=== PATIENT | male | born 1975 | race Hispanic/Latino ===

== ENCOUNTER 2023-09-28 14:21 | Inpatient (IN) | payer OTHER, SELFPAY ==
[2023-09-28 09:39] VITALS: BP 154/99
[2023-09-28 09:59] LABS: % Basophils 0.5 % (0-2); % Eosinophils 2.2 % (0-6); % Immature Granulocytes 0.7 % (0-0.5); % Lymphocytes 20.1 % (20.5-51.1); % Monocytes 8.9 % (1.7-9.3); % Neutrophils 67.6 % (42.2-75.2); Absolute Basophils 0.1 10^3/uL (0-0.2); Absolute Eosinophils 0.3 10^3/uL (0-0.7); Absolute Immature Granulocytes 0.1 10^3/uL (0-0.05); Absolute Lymphocytes 2.5 10^3/uL (1.2-3.4); Absolute Monocytes 1.1 10^3/uL (0.1-0.6); Absolute Neutrophils 8.2 10^3/uL (1.4-6.5); Hematocrit 40.1 % (39.0-52.0); Hemoglobin 13.9 g/dL (13.0-18.0); Mean Corp Hgb Conc. 34.7 g/dL (33.0-37.0); Mean Corpuscular Hgb 29.3 pg (27.0-31.0); Mean Corpuscular Volume 84.6 fL (80.0-94.0); Mean Platelet Volume 10.1 fL (7.4-10.4); Nucleated Red Blood Cells % 0 % (-); Platelet Count 328 10^3/uL (130-400); Red Blood Cell Count 4.74 10^6/uL (4.70-6.10); Red Cell Dist. Width 11.7 % (11.5-14.5); White Blood Cell Count 12.2 10^3/uL (4.8-10.8)
[2023-09-28 10:18] LABS: ALT (SGPT) 25 U/L (0-50); AST (SGOT) 21 U/L (17-59); Alkaline Phosphatase 140 U/L (38-126); Blood Urea Nitrogen 13 mg/dl (9-20); Calcium 9.4 mg/dl (8.4-10.2); Carbon Dioxide 24 mmol/L (22-30); Chloride 99 mmol/L (98-107); Glucose 480 mg/dl (70-99); Potassium 4.4 mmol/L (3.5-5.1); Sodium 133 mmol/L (135-145); Total Bilirubin 1.3 mg/dl (0.2-1.3); Total Protein 6.8 g/dl (6.3-8.2); eGFR > 60.00
--- NOTE | 2023-09-28 10:56 | ED.GENMED ---
History of Present Illness
General
Chief Complaint: Skin Problem
Source: patient
Exam Limitations: none
Time Seen by Provider: 09/28/23 10:53
Nursing documentation reviewed up to this point in time: agreed with
Travel History
Have you had any contact with someone who has COVID-19?: No
Do you have any symptoms of coronavirus? Fever > 100 degrees, chills, cough, shortness of breath, sore throat, loss of taste or smell, muscle aches, or headache?: No
History of Present Illness
History of Present Illness:
48 y/o M with h/o NIDDM
here with pain/swelling/purulence around right great toe for the past 2-3 days, worsening today
pt says he had a bump to the right medial great toe region last year that was small
it seemed to get acutely larger with more pus looking under the tissue over the past 2 days and now redness, pain, swelling into the top of the foot
has not checked BG at home
takes metformin bid
denies h/o neuropathy
no fever, chills
pain with movmeent and palpation
no obvious drainage
Past History
Past History
ED Past Medical History: NIDDM
Social History
Tobacco: Non-smoker
Alcohol: Occasional
Drug: None
Personal:
Living: with family
Employment: Employed
Review of Systems
Review of Systems
Allergies reviewed?: Yes
All Other Systems: Not applicable
Phy Exam
Physical Exam
Physical Exam:
GENERAL: Alert , in no apparent distress
EYE: pupils equal and reactive
NECK: Supple
ENT: o/p clr, mmm.
CARDIAC: Regular rate and rhythm .
LUNGS: Clear breath sounds bilaterally, no acute respiratory distress, no wheezes/rales/rhonchi
ABDOMEN: Soft, without focal tenderness, no r/g, no cvat, normal bowel sounds
NEUROLOGICAL: Alert and oriented, no focal neuro deficits
SKIN: Warm and dry, skin intact.
MUSCULOSKELETAL: Patient has swelling to his left great toe with purulence under the soft tissue that seems to have a fluctuant abscess, some blood under the tissue in this region as well, plantar aspect
swelling extends up his foot/ankle region and there is mild erythema to the foot dorsum and moderate on the dorsal aspect of the great toe; no obvious paronychia
pt has mild tenderness
full rom of the toes
normal senesation
PSYCH: Normal and appropriate interaction.
Course
Orders/Labs/Results
Orders:
Orders
09/28/23 09:50
C-Reactive Protein Urgent
Comment: ADD ON
CMP [Comprehensive Metabolic Panel] Urgent
Complete Blood Count/With Diff Urgent
Glycohemoglobin (HgbA1c) Urgent
09/28/23 Lunch
2200 calorie (18 carb) Diabetic
09/28/23 10:54
0.9% Sodium Chloride 1000 ml [Nss] 1,000 ml IV BOLUS
09/28/23 11:01
BHB [B-Hydroxybutyrate] Urgent
Foot, Left 3 View [CR Foot - Left Min 3 Views] Urgent
Comment:
Reason For Exam: left great toe infection, diabetic
09/28/23 11:02
Add On- LAB Urgent
Tests Added?: hemoglobin a1c
09/28/23 11:05
Lactic Acid Urgent
Urinalysis Reflex To Culture Urgent
Date Specimen was Collected: 09/28/23
Time Specimen was Collected: 11:01
Blood Culture Urgent
VÍCTOR Source: Blood/Venous
Specimen Description:
09/28/23 11:43
Piperacillin/Tazo 4.5 Gram [Zosyn] 4.5 gram in 100 ml IV NOW
09/28/23 11:57
Blood Culture Urgent
VÍCTOR Source: Blood/Venous
Specimen Description:
Wound Culture [Wound/Abscess/Other Culture] Urgent
VÍCTOR Source: Abscess
Specimen Description:
Date Specimen was Collected: 09/28/23
Time Specimen was Collected: 11:54
09/28/23 12:04
Vancomycin [Vancocin] 2,000 mg 0.9% Sodium Chloride 500 ml [Nss] 500 ml IV NOW
09/28/23 13:23
0.9% Sodium Chloride 1000 ml [Nss] 1,000 ml IV BOLUS
09/28/23 13:57
Admit/Transfer Patient As Directed
Co-Sign Provider:
Level of Care: Inpatient admission
Assign to:: Telemetry
Physician / Group: Dr. Shady Collins/Hospitalist
Diagnosis: Left big toe infection
Reason for Telemetry: Arrhythmia
Date to Stop Telemetry: 10/01/23
Time to Stop Telemetry: 11:00
Reason for Hospitalization: Left big toe infection
Expected length of stay greater than two midnights?: Yes
ELOS- Estimated Length of Stay in days: 3
I certify the patient meets the requirements for IP care: Yes
09/28/23 14:00
Code Status As Directed
Resuscitation Status: Full Code
09/28/23 14:10
PODIATRY CONSULT Routine
Consulting Provider: Jc Camilo
Was physician already notified: Yes
Reason for consult: Left Great Toe Infection in the setting of Diabetes Mellitus
09/28/23 14:11
INFECTIOUS DISEASE CONSULT Routine
Consulting Provider: Esperanza Garnett
Was physician already notified: Yes
Reason for consult: Left Great Toe Infection in the setting of Diabetes Mellitus
SURGICAL CONSULT Routine
Consulting Provider: Adan Burt
Was physician already notified: Yes
Reason for consult: Left Great Toe Infection -- Nec Fasc/Deep Necrosis in Left Leg?
09/28/23 14:13
Diabetes Management by Nurse Practitioner Routine
Consulting Provider: Gladis Biggs
Was provider already notified?: Yes
Reason for Consult: Insulin Management
Dextrose 50%-Water [Dextrose 50% Syringe] 12.5 grams IV [id number] PRN
Glucagon [GlucaGen] 1 mg IM PRN PRN
Bedside Glucose Monitoring As Directed
Frequency: AC&HS
Additional Instructions:: Change to q6h if pt on TPN, tube feeding or not eating
09/28/23 16:11
Bisacodyl [Dulcolax] 10 mg RECTAL [id number] PRN
Clindamycin 900 mg/50 ml [Cleocin] 900 mg in 50 ml IV Q8H
Docusate W/Senna [Senokot-S] 1 tablet PO BIDPRN PRN
Polyethylene Glycol Powder [Miralax] 17 grams PO DAILYPRN PRN
VANCOMYCIN Pharmacy to Dose [VANCOCIN Pharmacy to Dose] 1 each Pharmacy To Prepare [Call Pharmacy To Prepare] 0 ml IV PER PROTOCOL
09/28/23 16:11
Activity As Directed
Activity Level: As Tolerated
Neurological Checks As Directed
Frequency: q8h
Additional Instructions:: Bilateral Lower Extremities
Vascular Checks As Directed
Location: Bilateral Lower Extremities
Vital Signs As Directed
Frequency: Per unit guidelines
DX Deep Vein Thrombosis Video Routine
09/28/23 16:30
Insulin Aspart Corrective Low [Novolog Flexpen-Low Resistance] See Protocol SC AC
09/28/23 18:00
Enoxaparin Sodium [Lovenox] 40 mg SC QPM
Piperacillin/Tazo 3.375 Gram [Zosyn] 3.375 gram in 50 ml IV Q6H
09/29/23 06:00
Basic Metabolic Panel IN AM
Complete Blood Count/With Diff IN AM
Magnesium IN AM
09/29/23 08:00
Triglycerides Medication 1 tablet PO DAILY
09/30/23 06:00
Basic Metabolic Panel IN AM
Complete Blood Count/With Diff IN AM
10/01/23 06:00
Basic Metabolic Panel IN AM
Complete Blood Count/With Diff IN AM
10/01/23 11:00
DC Protocol for Telemetry ONCE
10/02/23 06:00
Basic Metabolic Panel IN AM
Complete Blood Count/With Diff IN AM
10/03/23 06:00
Basic Metabolic Panel IN AM
Complete Blood Count/With Diff IN AM
10/04/23 06:00
Basic Metabolic Panel IN AM
Complete Blood Count/With Diff IN AM
10/05/23 06:00
Basic Metabolic Panel IN AM
Complete Blood Count/With Diff IN AM
10/06/23 06:00
Basic Metabolic Panel IN AM
Complete Blood Count/With Diff IN AM
Abnormal Lab Results
09/28/23 09/28/23 09/28/23
09:50 11:05 12:45
WBC 12.2 H 10^3/uL
(4.8-10.8)
Abs Immat Gran (auto) 0.1 H 10^3/uL
(0-0.05)
Absolute Neuts (auto) 8.2 H 10^3/uL
(1.4-6.5)
Absolute Monos (auto) 1.1 H 10^3/uL
(0.1-0.6)
Immature Gran % 0.7 H %
(0-0.5)
Lymphocytes % 20.1 L %
(20.5-51.1)
Sodium 133 L mmol/L
(135-145)
Creatinine 0.5 L mg/dL
(0.7-1.3)
Glucose 480 H* mg/dl
(70-99)
Hemoglobin A1c 12.4 H %
(4.0-5.6)
Alkaline Phosphatase 140 H U/L
(38-126)
Urine Glucose 3+ A
(Negative)
POC Glucose 290 H mg/dl
(70-99)
09/28/23 09:50
09/28/23 09:50
Vital Signs
Initial and Last Documented VS:
Initial Vital Signs
Temp Pulse Resp BP Pulse Ox
98 F 98 14 154/99 98
09/28/23 09:39 09/28/23 09:39 09/28/23 09:39 09/28/23 09:39 09/28/23 09:39
Last Documented Vital Signs
Temp Pulse Resp BP Pulse Ox
98.0 F 79 18 130/76 97
09/28/23 14:55 09/28/23 14:55 09/28/23 14:55 09/28/23 14:55 09/28/23 14:55
MDM/Problems Addressed
MDM/Problems Addressed:
48 y/o M NIDDM
has diabetic foot infection - looks more like a purulent abscess to right medial great toe with cellulitis up his foot now;
bg 480, AG 10, getting IVF and i can order SC insulin
xray indep reviewed by me and shows some gas subcutaneously
rads report : doesn't r/o osteo,
pt's bg came down with some IVF
will give 2nd liter
pt will be ad,mitted for IV abx
concern for early osteo
the abscess was poked with a #11 blade after 1 cc of lidocaine without epi into the abscess and cultured and drained with expression
*Critical Care Note
Total Time (30-74mins, 75-104mins- exclusive of procedures): Not Applicable
ED Attending Note
-
Portions of this chart may have been created with voice recognition software.� Occasional wrong word or��sound alike� substitutions may have occurred due to the inherent limitations of voice recognition software.
Discharge Plan
Departure
Patient Disposition: Admit
Date of Disposition: 09/28/23
Time of Disposition: 11:41
Admit to: Med/Surg
Presentation/result/management discussed w/ accepting MD/DO: Hospitalist
Condition: Fair
Covid-19: Not Applicable
Discharge Problem:
Uncontrolled diabetes mellitus, Diabetic foot infection
Interventions
Interventions:
*Risk Screen - Suicide Last Done: 09/28/23 09:40
*General Assessment Last Done: 09/28/23 09:39
*Neglect/Abuse Screening Last Done: 09/28/23 09:39
ED- Fall Risk Assessment Last Done: 09/28/23 14:29
*ED COVID-19 Vaccine History Last Done: 09/28/23 15:16
*Nursing Disposition Last Done: 09/28/23 15:16
ED-Skin Assessment Last Done: 09/28/23 14:14
Discharge Date and Time
Discharge Date/Time: 09/28/23 15:17
[2023-09-28] MEDS: NSS 1000 IV ×2 (11:13→14:15)
[2023-09-28 11:21] LABS: Urine Albumin Negative (Neg - Trace); Urine Bilirubin Negative (Negative); Urine Character Clear (Clear); Urine Color Yellow; Urine Glucose 3+ (Negative); Urine Ketone Negative (Negative); Urine Leukocyte Negative (Negative); Urine Nitrite Negative (Negative); Urine Occult Blood Negative (Negative); Urine Urobilinogen Negative (Neg - 1+)
[2023-09-28 11:33] LABS: Lactic Acid 1.9 mmol/L (0.7-2.0)
[2023-09-28] MEDS: ZOSYN 100 IV (12:30)
[2023-09-28] MEDS: VANCOCIN 540 MG IV (12:54)
[2023-09-28 12:58] LABS: Glucose - Point of Care 290 mg/dl (70-99)
[2023-09-28 13:25] LABS: B-Hydroxybutyrate 0.12 mmol/L (0.02-0.27)
--- NOTE | 2023-09-28 14:14 | HPS.HSE ---
Family Physician
-
Family Physician: * NONE
Chief Complaint
-
Left Big Toe Pain, Redness and Swelling
History of Present Illness
48 y/o male with past medical history of Diabetes Mellitus, presented with left big toe pain, redness and swelling. Patient says it started about 2-3 days ago, and now also has some discomfort going up his left foot, past his left ankle and up his
left leg. He also noticed intermittent drainage from the affected site. He denied any fever or any other symptoms or any systemic signs or symptoms.
Medical History
Past Medical History
Past Medical History: Reports Other (As per HPI above)
Past Surgical History: Reports None
Social History
Tobacco: Non-smoker
Alcohol: None
Drug: None
Family History
Family History: Not pertinent
Allergies / Home Medications
Allergies reflects when Allergies were last updated in [facility].
Home Medications with original date entered in [facility]
Allergy/Medication List:
Allergies
Allergy/AdvReac Type Severity Reaction Status Date / Time
No Known Allergies Allergy Unverified 09/28/23 09:41
Home Medications
Triglycerides Medication 1 tab PO DAILY 09/28/23
metformin 500 mg tablet 500 mg PO BID 09/28/23
Review of Systems
-
A 12 point ROS was completed and negative except as noted: Yes
Physical Exam
Vital Signs
Vital Signs
Temp Pulse Resp BP Pulse Ox
98 F 98 14 154/99 98
09/28/23 09:39 09/28/23 09:39 09/28/23 09:39 09/28/23 09:39 09/28/23 09:39
Physical Exam
General: No Apparent Distress and Conversant
HEENT: NormoCephalic and Moist mucous membranes
Respiratory: Clear
Cardiac: S1/S2 and Regular Rhythm
GI: Soft, Non Tender and Normal Bowel Sounds
Musculoskeletal: No Cyanosis, No Edema and Other (Left great toe with scabs and dark-colored area erythema and warmth, mildly tender on palpation.)
Skin: Warm
Neuro: Awake, Alert and AO x 3
Psych: Calm and Intact Judgment/Insight
Laboratory Results
-
09/28/23 09:50
09/28/23 09:50
Laboratory Results
Lactic Acid 1.9 mmol/L (0.7-2.0) 09/28/23 11:05
Total Bilirubin 1.3 mg/dl (0.2-1.3) 09/28/23 09:50
AST 21 U/L (17-59) 09/28/23 09:50
ALT 25 U/L (0-50) 09/28/23 09:50
Alkaline Phosphatase 140 U/L (38-126) H 09/28/23 09:50
Impression/Plan
-
Assessment/Plan
Left Great Toe Cellulitis, Soft Tissue Infection
-Check CRP
-Check MRI LLE to check for any nec fasc
-Antibiotics; Vancomycin, Zosyn and Clindamycin
-Consulted ID, Podiatry and Surgery, recommendations appreciated
Diabetes mellitus, uncontrolled
Hyperglycemia
-Glucose was 480 on admission
-Improved in the ER after IV fluids were given
-Insulin Sliding Scale and accuchecks AC and HS
-Consulted Diabetes SHAREPOINT APPLICATION ARCHITECT, recommendations appreciated
DVT Prophylaxis: Lovenox
Code Status: Full Code
[2023-09-28 14:27] VITALS: BP 141/77
[2023-09-28 14:35] LABS: Glycohemoglobin (HgbA1c) 12.4 % (4.0-5.6)
--- NOTE | 2023-09-28 14:53 | CON.ID ---
Consultation
-
Date/Time Consultation Requested: September 28, 2023 1415
Date/Time Consultation Performed: September 28, 2023 1430
Requesting Provider: Dr. Shady Collins
Performing Provider: Dr. Esperanza Garnett
Reason for Consultation: toe infection
Chief Complaint / Past History
Chief Complaint
Left great toe swelling and red
History of Present Illness
48-year-old male with history of diabetes mellitus without neuropathy who presented to the ED today due to 3-day history of increasing left hallux edema, erythema, pain and drainage. He reports he always has a dry wound on the bottom and side of
his left great toe for about a year which did not cause any problems. 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 He has had new shoes. No fevers or chills. He reports his blood sugar has been high
lately.
Past History
Additional Past Medical History:
Diabetes mellitus
Dyslipidemia
Allergy History:
No Known Allergies Allergy (Unverified 09/28/23 09:41)
Medications Reviewed: Yes
Current Antibiotics:
Vancomycin
Zosyn
clindamycin
Social History
Tobacco: Non-Smoker
Alcohol: Occasional
Drug: None
Personal:
Living: With Family
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
Family History
Family History: Not Pertinent
Review of Systems
Review of Systems
General: Negative Fever, Chills or Change in Appetite
HEENT: Negative Sinus Problems, Headache or Pharyngitis
Cardiovascular: Negative Chest Pain or Dyspnea
Respiratory: Negative Dyspnea or Cough
Gasteroenterology: Negative Nausea or Vomiting
Genital / Urological: Negative Dysuria
Neurological: Negative Headache or Dizziness
Vital Signs
Temp Pulse Resp BP Pulse Ox
98.4 F 72 18 141/77 94
09/28/23 14:27 09/28/23 14:27 09/28/23 14:27 09/28/23 14:27 09/28/23 14:27
Physical Exam
Physical Exam
Constitutional: No Acute Distress and Comfortable
Eyes: No Conjunctival Hemorrhage and Sclera Anicteric
Cardiovascular: Regular Rate and S1/S2
Pulmonary: Clear
Gastrointestinal: Soft, Non Tender and Non Distended
Genito-Urinary: Negative CVA Tenderness
Extremities: Erythema (streaky erythema on dorsum of left foot) and Pulses (strong pedal pulses (left)); Negative Edema
Wound: Other (left hallux; + edema, dark erythema distal toe, + streaking erythema up foot; plantar side of toe with purplish wound covered with callus extending too medial toe. )
Neurological: AO x 3
Lab / Diagnostic Study Results
09/28/23 09:50
09/28/23 09:50
Abs Immat Gran (auto) 0.1 10^3/uL (0-0.05) H 09/28/23 09:50
Absolute Neuts (auto) 8.2 10^3/uL (1.4-6.5) H 09/28/23 09:50
Absolute Lymphs (auto) 2.5 10^3/uL (1.2-3.4) 09/28/23 09:50
Absolute Monos (auto) 1.1 10^3/uL (0.1-0.6) H 09/28/23 09:50
Absolute Basos (auto) 0.1 10^3/uL (0-0.2) 09/28/23 09:50
Immature Gran % 0.7 % (0-0.5) H 09/28/23 09:50
Neutrophils % 67.6 % (42.2-75.2) 09/28/23 09:50
Lymphocytes % 20.1 % (20.5-51.1) L 09/28/23 09:50
Monocytes % 8.9 % (1.7-9.3) 09/28/23 09:50
Eosinophils % 2.2 % (0-6) 09/28/23 09:50
Basophils % 0.5 % (0-2) 09/28/23 09:50
Lactic Acid 1.9 mmol/L (0.7-2.0) 09/28/23 11:05
Microbiology Results
Micro:
09/28/23 11:57 Blood Culture - Pending
Blood/Venous
09/28/23 11:57 Wound Culture - Pending
Abscess Gram Stain - Pending
09/28/23 11:05 Blood Culture - Pending
Blood/Venous
Assessment / Plan
# Diabetic left great toe infection with wound, cellulitis
# Leukocytosis
- Agree with MRI
-Low suspicion for necrotizing fascitis
- DC clindamycin
- Continue Vancomycin and Zosyn for now.
[2023-09-28 14:55] VITALS: BP 130/76
[2023-09-28 17:11] LABS: Glucose - Point of Care 247 mg/dl (70-99)
[2023-09-28] MEDS: ZOSYN 50 IV (17:52)
[2023-09-28] MEDS: LOVENOX 40 MG SC (17:53)
--- NOTE | 2023-09-28 18:02 | PHA.VAN.IN ---
Assessment
- Assessment
Renal Function: Appears similar to baseline
Concomitant Antimicrobials: ZOSYN
- Previous Dosing Experience
Previous Regimen: NONE
AUC Dosing Plan
- Dosing Variables
Dosing Weight (kg): 88.6
Dosing CrCl (ml/min): 100
Vd coefficient (L/kg): 0.6
- Empiric Dosing
Initial / Loading Dose: 2GM
Maintenance Regimen: 1GM IV Q12H
Estimated AUC (mcg*h/mL): 449
Estimated Peak (mcg*h/mL): 29
Estimated Trough (mcg/ml): 11.1
Estimated Half Life (H): 7.9
Pharmacokinetics Vancomycin I
- -
Patient Age: 48
Patient Sex: Male
Vancomycin Day #: 1
Indication: Diabetic Foot
Requesting Provider: BLAIR
Height / Weight:
Height 5 ft 6 in
Actual Weight 88.6 kg
Pertinent Past Medical History: IDDM
- Vital Signs / Lab Results
Temp Pulse Resp BP Pulse Ox
98.0 F 79 18 130/76 97
09/28/23 14:55 09/28/23 14:55 09/28/23 14:55 09/28/23 14:55 09/28/23 14:55
Lab Results - Hematology
09/28/23
09:50
WBC 12.2 H
Lab Results - Chemistry
09/28/23
09:50
BUN 13
Creatinine 0.5 L
Albumin 4.0
09/28/23
11:05
Lactic Acid 1.9
Lab Results - Urine
09/28/23
11:05
Urine Nitrite (Reflex) Negative
Leukocyte Esterase Rfl Negative
Microbiology Results
09/28/23 11:57 Gram Stain - Preliminary
Abscess
[2023-09-28] MEDS: NOVOLOG FLEXPEN-LOW RESISTANCE 2 UNITS SC (18:06)
[2023-09-28] MEDS: ULTRAM 25 MG PO (19:58)
[2023-09-28 20:36] VITALS: BP 133/74
[2023-09-28 21:19] LABS: Glucose - Point of Care 262 mg/dl (70-99)
[2023-09-28 23:40] VITALS: BP 127/77
[2023-09-29] MEDS: ZOSYN 50 IV ×4 (00:49→17:44)
[2023-09-29 03:49] VITALS: BP 136/84
[2023-09-29] MEDS: VANCOCIN 200 IV (04:57)
[2023-09-29 05:36] LABS: % Basophils 0.5 % (0-2); % Eosinophils 3.6 % (0-6); % Immature Granulocytes 0.6 % (0-0.5); % Lymphocytes 27.9 % (20.5-51.1); % Monocytes 9.7 % (1.7-9.3); % Neutrophils 57.7 % (42.2-75.2); Absolute Basophils 0.1 10^3/uL (0-0.2); Absolute Eosinophils 0.4 10^3/uL (0-0.7); Absolute Immature Granulocytes 0.1 10^3/uL (0-0.05); Absolute Lymphocytes 3.3 10^3/uL (1.2-3.4); Absolute Monocytes 1.2 10^3/uL (0.1-0.6); Absolute Neutrophils 6.8 10^3/uL (1.4-6.5); Hematocrit 37.4 % (39.0-52.0); Hemoglobin 12.6 g/dL (13.0-18.0); Mean Corp Hgb Conc. 33.7 g/dL (33.0-37.0); Mean Corpuscular Volume 86.2 fL (80.0-94.0); Mean Platelet Volume 9.9 fL (7.4-10.4); Nucleated Red Blood Cells % 0 % (-); Platelet Count 281 10^3/uL (130-400); Red Blood Cell Count 4.34 10^6/uL (4.70-6.10); Red Cell Dist. Width 11.6 % (11.5-14.5); White Blood Cell Count 11.9 10^3/uL (4.8-10.8)
[2023-09-29 06:14] LABS: Blood Urea Nitrogen 14 mg/dl (9-20); Calcium 8.3 mg/dl (8.4-10.2); Carbon Dioxide 27 mmol/L (22-30); Chloride 104 mmol/L (98-107); Estimated Creatinine Clearance > 125 ml/min; Glucose 244 mg/dl (70-99); Magnesium 1.7 mg/dl (1.6-2.3); Potassium 4.3 mmol/L (3.5-5.1); Sodium 133 mmol/L (135-145); eGFR > 60.00
[2023-09-29 07:00] VITALS: BP 121/81
[2023-09-29 07:54] LABS: Glucose - Point of Care 236 mg/dl (70-99)
--- NOTE | 2023-09-29 08:09 | W.CS.POD ---
Consult Summary - Podiatry
-
This patient is a 48 year old diabetic male admitted through ER yesterday (09/28/23) with an infected great toe and cellulitis of the LLE. He relates noticing a blister along the bottom and side of the toe for approximately one year, essentially
asymptomatic. Within the last few days he noticed increased pain and swelling in the toe and it seemed the pain was spreading up his leg. He denies burning, tingling or numbness in his feet. Denies fever, chills or sweats today.
Afebrile, VSS
WBC: 11.9, no shift
B (480 on admission)
XRAY left foot: Reported, 'Cannot exclude small cortical fracture or focal cortical bony destructive process involving the tip of the distal phalanx of the left great toe.'
Assessment:
Infected diabetic wound of the great toe with cellulitis LLE
Uncontrolled Diabetes Mellitus with diabetic peripheral neuropathy
Hyperlipidemia
Plan:
-XRAYs of the left foot evaluated. There is no clear evidence of cortical destruction or osteomyelitis of the tuft of the distal phalanx of the great toe.
-This is an infected blister involving most of the plantar medial pad of the left great toe. There is no deep extension or tracking of the wound. No bone exposure. Cellulitis appears to be limited to the toe.
-Bedside excisional debridement of the left great toe ulceration, partial skin thickness, with removal of hyperkeratotic and nonviable skin and soft tissue, to a lightly bleeding base. Wound approximately 3cm x 2.5cm. Purulence encountered and wound
was washed out with saline. Dressing applied.
-Patient to ambulate with weight on the left heel only, to bathroom only.
-MRI pending, however I do not believe surgery on the toe is warranted at this point. Discussed with Dr. Collins.
-ID note appreciated. Continue IV antibiotics.
-Will follow.
[2023-09-29] MEDS: NOVOLOG FLEXPEN-LOW RESISTANCE 2 UNITS SC ×2 (09:00→14:12)
[2023-09-29] MEDS: GLUCOPHAGE 1000 MG PO ×2 (09:01→17:44)
--- NOTE | 2023-09-29 09:48 | PHA.VAN.FU ---
Vancomycin Assessment / Plan
- Assessment
Renal Function: Stable
WBC's are: Stable
In the past 24 hrs, patient has been: Afebrile
Concomitant Antimicrobials: piperacillin/tazobactam
- Dosing Plan
Adjust Regimen to: Vanc 1500mg Q12H starting at 1800
New Regimen Predicts: AUC (481), Peak (33.1), Trough (10.6)
Dosing Comments: utilized est CrCl 125 ml/min given 48 y/o with appr SCR
- Monitoring Plan
No level(s) ordered at this time: consider levels in next few days
- Follow Up
Pharmacy will continue to follow.
Vancomycin Follow UP
- -
Patient Age: 48
Patient Sex: Male
Vancomycin Day #: 2
Indication: Diabetic Foot
Requesting Provider: Dr. Collins / Tamir
Pertinent Antimicrobial Allergies:
NKDA
Height / Weight:
Height 5 ft 6 in
Actual Weight 88.6 kg
Pertinent Past Medical History: BMI ~31.5, DM
- Vital Signs / Lab Results
Temp Pulse Resp BP Pulse Ox
97.5 F 83 16 121/81 96
09/29/23 07:00 09/29/23 07:00 09/29/23 07:00 09/29/23 07:00 09/29/23 07:00
Lab Results - Hematology
09/28/23 09/29/23
09:50 05:24
WBC 12.2 H 11.9 H
Lab Results - Chemistry
09/28/23 09/29/23
09:50 05:24
BUN 13 14
Creatinine 0.5 L 0.6 L
Estimated Creat Clear > 125
Albumin 4.0
09/28/23
11:05
Lactic Acid 1.9
Lab Results - Urine
09/28/23
11:05
Urine Nitrite (Reflex) Negative
Leukocyte Esterase Rfl Negative
Microbiology Results
09/28/23 11:57 Gram Stain - Preliminary
Abscess
--- NOTE | 2023-09-29 10:31 | W.PN.ID1 ---
Date of Service
Date of Service: September 29, 2023
Today's Communication
Continue Vanco/Zosyn
Assessment / Plan
# Diabetic left great toe infection with purulent cellulitis
# Leukocytosis - improving
# DM2
- Awaiting MRI
-Appreciate Podiatry - s/p bedside debridement + pus sent for cx
- Continue Vancomycin and Zosyn pending culture.
Chief Complaint
-: Cellulitis
Subjective / Review of Systems
Foot/ankle feels better today. Had CT of leg this am.
Vital Signs / Physical Exam
Vital Signs
Vital Signs
Temp Pulse Resp BP Pulse Ox
97.5 F 83 16 121/81 96
09/29/23 07:00 09/29/23 07:00 09/29/23 07:00 09/29/23 07:00 09/29/23 07:00
Physical Exam
Constitutional: No Acute Distress and Comfortable
Gastrointestinal: Soft, Non Tender and Non Distended
Extremities: Erythema (streaky erythema decreased on dorsum of left foot); Negative Edema
Neurological: AO x 3
Objective Data
Lab Data
Lab Results
09/29/23 05:24
09/29/23 05:24
Estimated Creat Clear > 125 ml/min 09/29/23 05:24
Lactic Acid 1.9 mmol/L (0.7-2.0) 09/28/23 11:05
Total Bilirubin 1.3 mg/dl (0.2-1.3) 09/28/23 09:50
AST 21 U/L (17-59) 09/28/23 09:50
ALT 25 U/L (0-50) 09/28/23 09:50
Alkaline Phosphatase 140 U/L (38-126) H 09/28/23 09:50
C-Reactive Protein Cancelled 09/28/23 14:17
Most recent labs reviewed.
Micro Results:
09/28/23 11:57 Wound Culture - Pending
Abscess Gram Stain - Preliminary
09/28/23 11:57 Blood Culture - Pending
Blood/Venous
09/28/23 11:05 Blood Culture - Pending
Blood/Venous
[2023-09-29 11:00] VITALS: BP 125/82
--- NOTE | 2023-09-29 11:56 | PN.DE.MGMTRT ---
Insulin Management
- -
09/29/2023 Diabetes Management Consult
Patient admitted 09/27 with R great toe pain and purulent drainage for 2 to 3 days. PMH type 2 diabetes. A1C on admission 12.4%, cr .6, eGFr >60.
Patient is awake, alert and oriented resting in bed. Able to communicate and participate in discussion regarding diabetes. Patient states he was taking metformin 500 mg BID which he got in [place]. 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 With A1C elevated will
need to add another agent, glyburide 5 mg daily. I asked if he could afford $20.00 per month for additional medication, he said he could. He also stated he [facility].
Diet decreased from 2200 to 1800 ( patient is 5'6').
Glucose on admission 480, range yesterday 262 to 290. Will start 1000 mg metformin BID and add 5 mg Glyburide, first dose now then daily. Patient states he has a glucose monitor at home but admits he was not testing regularly. Encouraged to test
BID in pattern provided.
I spoke with patient nurse regarding diabetes plan of care.
Diabetes History
- -
Type of Diabetes: 2
Pre-Admission Diabetes Regimen
09/29/23
05:24
Creatinine 0.6 L
Lab Results
Hemoglobin A1c 12.4 % (4.0-5.6) H 09/28/23 09:50
Insulin Pump Settings
IP Diabetes Regimen
09/28/23 09/28/23 09/28/23
12:45 17:10 21:18
Glucose
POC Glucose 290 H 247 H 262 H
09/29/23 09/29/23
05:24 07:53
Glucose 244 H
POC Glucose 236 H
Patient Education
[2023-09-29 12:06] LABS: Glucose - Point of Care 293 mg/dl (70-99)
[2023-09-29] MEDS: MICRONASE 5 MG PO (12:30)
[2023-09-29 14:00] LABS: Glucose - Point of Care 235 mg/dl (70-99)
[2023-09-29 15:00] VITALS: BP 133/83
--- NOTE | 2023-09-29 15:23 | W.PN.HOSP.TC ---
Today's Communication/Plan
-
Await cultures
Continue antibiotics
Monitor vital signs
Assessment / Plan
Assessment / Plan
Physical Exam
General: No Apparent Distress and Conversant
HEENT: Normocephalic and Moist mucous membranes
Respiratory: Clear
Cardiac: S1/S2 and Regular Rhythm
GI: Soft, Non Tender and Normal Bowel Sounds
Musculoskeletal: No Cyanosis, No Edema and Other (Left great toe with scabs and dark-colored area erythema and warmth, mildly tender on palpation.)
Skin: Warm
Neuro: Awake, Alert and AO x 3
Psych: Calm and Intact Judgment/Insight
Assessment/Plan
Left Great Toe Cellulitis, Soft Tissue Infection
-CRP elevated
-Check MRI LLE
-Continue Vancomycin and Zosyn
-Consulted ID, Podiatry and Surgery, recommendations appreciated
Diabetes mellitus, uncontrolled
Hyperglycemia
-Glucose was 480 on admission
-Improved in the ER after IV fluids were given
-Insulin Sliding Scale and accuchecks AC and HS
-Consulted Diabetes PRODUCTION ANALYST, recommendations appreciated: start 1000 mg metformin BID and add 5 mg Glyburide
DVT Prophylaxis: Lovenox
Code Status: Full Code
Anticipated Discharge: 24 - 48 hours
Subjective/Interval History
-
Date of Service: September 29, 2023
Patient was seen and examined. He reports minimal to no pain, and was about to eat breakfast. He denied fever or any other symptoms or complaints.
Objective Data
-
Labs:
Laboratory Results
09/29/23
05:24
WBC 11.9 H
Hgb 12.6 L
Hct 37.4 L
Plt Count 281
Sodium 133 L
Potassium 4.3
Chloride 104
Carbon Dioxide 27
BUN 14
Creatinine 0.6 L
Glucose 244 H
Calcium 8.3 L
Vital Signs:
Vital Signs
Temp Pulse Resp BP Pulse Ox
98.3 F 80 16 125/82 95
09/29/23 11:00 09/29/23 11:00 09/29/23 11:00 09/29/23 11:00 09/29/23 11:00
I&O
09/28/23 09/29/23 09/30/23
06:59 06:59 06:59
Intake Total 240 / 240
Balance 240 / 240
--- NOTE | 2023-09-29 16:03 | CM ---
Met with patient and his daughter at the bedside
Pharmacy verified: [facility], [facility]
Patient reports he is from his spouse; lives with friends; multi level home; patient lives on the 1st floor; bath has a walk-in shower
PLOF: reported he is independent with ambulation, stairs and ADLs; drives
SNF/Rehab/Home Health utilization history: none
DME: none
Transporation: daughter will provide transport home
Plan: discharge plans pending hospital course; will continue to monitor or discharge needs
[2023-09-29 17:04] LABS: Glucose - Point of Care 179 mg/dl (70-99)
[2023-09-29] MEDS: LOVENOX 40 MG SC (17:44)
[2023-09-29] MEDS: NOVOLOG FLEXPEN-LOW RESISTANCE 1 UNITS SC (17:49)
[2023-09-29] MEDS: VANCOCIN 300 MG IV (18:39)
[2023-09-29] MEDS: VANCOCIN 300 ML IV (18:39)
[2023-09-29 19:20] VITALS: BP 125/75
[2023-09-29 21:31] LABS: Glucose - Point of Care 88 mg/dl (70-99)
[2023-09-29] MEDS: TYLENOL 650 MG PO (21:37)
[2023-09-29 23:20] VITALS: BP 133/79
[2023-09-30] VITALS (7 sets, daily range): BP systolic 128–164; BP diastolic 74–93
[2023-09-30] MEDS: ZOSYN 50 IV ×5 (00:19→23:41)
[2023-09-30] MEDS: VANCOCIN 300 MG IV (05:15)
[2023-09-30] MEDS: VANCOCIN 300 ML IV (05:15)
[2023-09-30 06:40] LABS: % Basophils 0.5 % (0-2); % Eosinophils 1.2 % (0-6); % Immature Granulocytes 0.5 % (0-0.5); % Lymphocytes 12.6 % (20.5-51.1); % Monocytes 9.5 % (1.7-9.3); % Neutrophils 75.7 % (42.2-75.2); Absolute Basophils 0.1 10^3/uL (0-0.2); Absolute Eosinophils 0.2 10^3/uL (0-0.7); Absolute Immature Granulocytes 0.1 10^3/uL (0-0.05); Absolute Lymphocytes 2.2 10^3/uL (1.2-3.4); Absolute Monocytes 1.6 10^3/uL (0.1-0.6); Absolute Neutrophils 12.9 10^3/uL (1.4-6.5); Hematocrit 41.4 % (39.0-52.0); Hemoglobin 14.1 g/dL (13.0-18.0); Mean Corp Hgb Conc. 34.1 g/dL (33.0-37.0); Mean Corpuscular Volume 85.2 fL (80.0-94.0); Mean Platelet Volume 9.8 fL (7.4-10.4); Nucleated Red Blood Cells % 0 % (-); Platelet Count 337 10^3/uL (130-400); Red Blood Cell Count 4.86 10^6/uL (4.70-6.10); Red Cell Dist. Width 11.7 % (11.5-14.5)
[2023-09-30 07:01] LABS: Blood Urea Nitrogen 19 mg/dl (9-20); Calcium 9.4 mg/dl (8.4-10.2); Carbon Dioxide 21 mmol/L (22-30); Chloride 105 mmol/L (98-107); Estimated Creatinine Clearance 73 ml/min; Glucose 149 mg/dl (70-99); Potassium 4.7 mmol/L (3.5-5.1); Sodium 134 mmol/L (135-145); eGFR > 60.00
--- NOTE | 2023-09-30 07:17 | PN.DE.MGMTRT ---
Insulin Management
- -
09/30/2023 Diabetes Management Consult Follow up
Patient admitted 09/27 with R great toe pain and purulent drainage for 2 to 3 days. PMH type 2 diabetes. A1C on admission 12.4%, cr .6, eGFr >60.
Patient stated he was taking metformin 500 mg BID which he got in [place]. 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 I asked if he could afford $20.00 per month for additional medication, he said he could. He also stated [facility].
Yesterday diet decreased from 2200 to 1800 ( patient is 5'6').
Patient is awake, alert and oriented resting in bed. Able to communicate and participate in discussion regarding diabetes.
Glucose yesterday 244 fasting, glyburide @ 12noon, pre dinner 179, hs 88. Fasting this AM 149. Will continue 1000 mg metformin BID and 5 mg Glyburide daily. Patient states he has a glucose monitor at home but admits he was not testing regularly.
Encouraged to test BID in pattern provided in diabetes education booklet which is circled. I also reviewed the two medications he is taking and circled in booklet.
I spoke with patient nurse regarding diabetes plan of care.
Diabetes History
- -
Type of Diabetes: 2
Pre-Admission Diabetes Regimen
09/30/23
06:16
Creatinine 1.3
Lab Results
Hemoglobin A1c 12.4 % (4.0-5.6) H 09/28/23 09:50
Insulin Pump Settings
IP Diabetes Regimen
09/29/23 09/29/23 09/29/23
07:53 12:04 13:59
Glucose
POC Glucose 236 H 293 H 235 H
09/29/23 09/29/23 09/30/23
17:03 21:29 06:16
Glucose 149 H
POC Glucose 179 H 88
Meal type: Dinner
Meal type: Lunch
Meal type: Breakfast
Amount consumed: 100%
Amount consumed: 100%
Amount consumed: 100%
Patient Education
[2023-09-30 07:58] LABS: Glucose - Point of Care 153 mg/dl (70-99)
[2023-09-30] MEDS: GLUCOPHAGE 1000 MG PO ×2 (08:39→17:13)
[2023-09-30] MEDS: MICRONASE 5 MG PO (08:39)
[2023-09-30] MEDS: NOVOLOG FLEXPEN-LOW RESISTANCE 1 UNITS SC (08:40)
[2023-09-30 12:14] LABS: Glucose - Point of Care 212 mg/dl (70-99)
[2023-09-30] MEDS: NOVOLOG FLEXPEN-LOW RESISTANCE 2 UNITS SC (12:25)
--- NOTE | 2023-09-30 14:15 | W.PN.POD ---
Today's Communication
Today's Communication
Left great toe wound improving but defect distally remains.
MARY's ordered.
Assessment / Plan
-
Assessment:
Infected diabetic wound of the great toe with cellulitis LLE
Uncontrolled Diabetes Mellitus with diabetic peripheral neuropathy
Hyperlipidemia
Plan:
MRI inconclusive for osteomyelitis.
Overall the left great toe wound is improving with the exception of the defect distally.
Recommend continuing IV Antibiotics for another day.
Diminished pedal pulses: Will order Non-invasive arterial studies/MARY's of LE's.
Reiterated to the patient-must ambulate with Right foot WB on heel only.
Lawall's consult for wedged surgical shoe.
Subjective
Chief Complaint
Infected diabetic ulceration of the left great toe.
Subjective
Patient resting comfortably in bed. Denies pain in the left foot. No fever, chills or sweats.
Further inquiry reveals he was standing and walking on the toe against advisement.
Objective
Temp Pulse Resp BP Pulse Ox
98.8 F 84 16 164/93 96
09/30/23 11:00 09/30/23 11:00 09/30/23 11:00 09/30/23 11:00 09/30/23 11:00
09/30/23 06:16
09/30/23 06:16
Vital Signs and Lab results were reviewed.
WBC: 17.0 with right shift. (Possible post-debridement affect or other cause)
DP pulses, bilaterally non-palpable, PT pulse left 0/4, right 1/4.
Skin is warm to touch, CFT to digits 1+ seconds, Diminished digital hair, bilaterally.
Decreased erythema and edema of the left great toe. No ascending cellulitis.
The ulceration of the great toe is healing peripherally, however there is a 1.0 cm defect with some necrotic tissue probing deeply but not directly to bone.
No malodor, active purulence from the toe wound.
09/28/23 XRAYS, Left foot: There is no clear evidence of cortical destruction or osteomyelitis of the tuft of the distal phalanx of the great toe.
09/28/33 MRI, left foot: Within the plantar soft tissues adjacent to the distal phalanx of the great toe, there is patchy enhancing intermediate T1-weighted signal suggesting cellulitis/inflammation, adjacent to foci of air seen on CT. No evidence
for a focal collection in this region.
There is moderate patchy increased T2 and STIR signal and patchy enhancement of the marrow of the distal phalanx of the left great toe, without associated decreased T1-weighted signal. Main differential considerations of reactive marrow edema and
osteomyelitis.
--- NOTE | 2023-09-30 15:27 | W.PN.ID1 ---
Date of Service
Date of Service: September 30, 2023
Today's Communication
Continue Zosyn.
Assessment / Plan
# Diabetic left great toe infection with purulent cellulitis
# Leukocytosis - worse today
# DM2 uncontrolled A1c 12.4
- MRI report with BM edema vs osteo
- Podiatry - s/p bedside debridement + pus cx: viridens strep
-Discussed with Dr. Camilo there is an area of wound very close to bone but bone not exposed.
He ordered arterial duplex studies
-Continue Zosyn.
-DC Vancomycin.
Chief Complaint
-: Cellulitis
Subjective / Review of Systems
Feels OK
Vital Signs / Physical Exam
Vital Signs
Vital Signs
Temp Pulse Resp BP Pulse Ox
98.8 F 84 16 164/93 96
09/30/23 11:00 09/30/23 11:00 09/30/23 11:00 09/30/23 11:00 09/30/23 11:00
Physical Exam
Constitutional: No Acute Distress and Comfortable
Cardiovascular: Regular Rate and S1/S2
Pulmonary: Clear
Gastrointestinal: Soft, Non Tender and Non Distended
Wound: Other (toe dressing dry)
Neurological: AO x 3
Objective Data
Lab Data
Lab Results
09/30/23 06:16
09/30/23 06:16
Estimated Creat Clear 73 ml/min 09/30/23 06:16
Lactic Acid 1.9 mmol/L (0.7-2.0) 09/28/23 11:05
Total Bilirubin 1.3 mg/dl (0.2-1.3) 09/28/23 09:50
AST 21 U/L (17-59) 09/28/23 09:50
ALT 25 U/L (0-50) 09/28/23 09:50
Alkaline Phosphatase 140 U/L (38-126) H 09/28/23 09:50
C-Reactive Protein Cancelled 09/28/23 14:17
Most recent labs reviewed.
Micro Results:
09/28/23 11:57 Blood Culture - Preliminary
Blood/Venous No Growth in 48 hours- Final report to follow
09/28/23 11:05 Blood Culture - Preliminary
Blood/Venous No Growth in 48 hours- Final report to follow
09/28/23 11:57 Wound Culture - Final
Abscess Viridans Streptococcus Group
Gram Stain - Final
09/29/23 MRI LLE wo and w contrast: Within the plantar soft tissues adjacent to the distal phalanx of the great toe, there is patchy enhancing intermediate T1-weighted signal suggesting cellulitis/inflammation, adjacent to foci of air seen on CT. No
evidence for a focal collection in this region. There is moderate patchy increased T2 and STIR signal and patchy enhancement of the marrow of the distal phalanx of the left great toe, without associated decreased T1-weighted signal. Main
differential considerations of reactive marrow edema and osteomyelitis. Please see above discussion, as MRI is highly sensitive for the detection of osteomyelitis but is less specific.
Small focus of central nonenhancement with peripheral enhancement within the plantar subcutaneous soft tissues adjacent to the first metatarsophalangeal joint, and this finding suggests a small complex abscess or complex phlegmon.
Care Review
Plan reviewed with: Physician (Dr. Camilo)
[2023-09-30] MEDS: LOVENOX 40 MG SC (17:13)
[2023-09-30] MEDS: NOVOLOG FLEXPEN-LOW RESISTANCE SC (17:15)
[2023-09-30 17:16] LABS: Glucose - Point of Care 99 mg/dl (70-99)
--- NOTE | 2023-09-30 19:21 | W.PN.HOSP.TC ---
Today's Communication/Plan
-
Arterial Duplex
Continue IV antibiotics
Assessment / Plan
Assessment / Plan
Physical Exam
General: No Apparent Distress and Conversant
HEENT: Normocephalic and Moist mucous membranes
Respiratory: Clear
Cardiac: S1/S2 and Regular Rhythm
GI: Soft, Non Tender and Normal Bowel Sounds
Musculoskeletal: No Cyanosis, No Edema and Other (Left great toe with scabs and dark-colored area erythema and warmth, mildly tender on palpation.)
Skin: Warm
Neuro: Awake, Alert and AO x 3
Psych: Calm and Intact Judgment/Insight
Assessment/Plan
Left Great Toe Cellulitis, Soft Tissue Infection
-CRP elevated
-MRI report noted: edema vs. osteo.
-Status post Vancomycin
-Continue Zosyn
-Consulted ID, Podiatry and Surgery, recommendations appreciated
-Podiatry: s/p bedside debridement + pus cx: viridans strep
-Follow-up arterial duplex studies
-Ambulate with Right foot WB on heel only and Lawall's consult for wedged surgical shoe.
Diabetes mellitus, uncontrolled
Hyperglycemia
-Glucose was 480 on admission
-Improved in the ER after IV fluids were given
-Insulin Sliding Scale and accuchecks AC and HS
-Consulted Diabetes CIGAR HEAD PERFORATOR, recommendations appreciated: start 1000 mg metformin BID and add 5 mg Glyburide
DVT Prophylaxis: Lovenox
Code Status: Full Code
Anticipated Discharge: 24 - 48 hours
Subjective/Interval History
-
Date of Service: September 30, 2023
Patient was seen and examined. He reported no new pain or any other symptoms or complaints.
Objective Data
-
Vital Signs:
Vital Signs
Temp Pulse Resp BP Pulse Ox
98.3 F 85 16 140/80 94
09/30/23 15:00 09/30/23 15:00 09/30/23 15:00 09/30/23 16:50 09/30/23 15:00
I&O
09/29/23 09/30/23 10/01/23
06:59 06:59 06:59
Intake Total 240 / 240 1440 / 1440 1080 / 1080
Balance 240 / 240 1440 / 1440 1080 / 1080
[2023-09-30 21:39] LABS: Glucose - Point of Care 146 mg/dl (70-99)
[2023-10-01 03:36] VITALS: BP 126/79
[2023-10-01 05:41] LABS: % Basophils 0.6 % (0-2); % Eosinophils 1.7 % (0-6); % Immature Granulocytes 0.7 % (0-0.5); % Lymphocytes 16.4 % (20.5-51.1); % Monocytes 11.3 % (1.7-9.3); % Neutrophils 69.3 % (42.2-75.2); Absolute Basophils 0.1 10^3/uL (0-0.2); Absolute Eosinophils 0.3 10^3/uL (0-0.7); Absolute Immature Granulocytes 0.1 10^3/uL (0-0.05); Absolute Lymphocytes 2.5 10^3/uL (1.2-3.4); Absolute Monocytes 1.7 10^3/uL (0.1-0.6); Absolute Neutrophils 10.4 10^3/uL (1.4-6.5); Hematocrit 38.1 % (39.0-52.0); Hemoglobin 13.2 g/dL (13.0-18.0); Mean Corp Hgb Conc. 34.6 g/dL (33.0-37.0); Mean Corpuscular Hgb 29.1 pg (27.0-31.0); Mean Corpuscular Volume 84.1 fL (80.0-94.0); Mean Platelet Volume 9.8 fL (7.4-10.4); Nucleated Red Blood Cells % 0 % (-); Platelet Count 307 10^3/uL (130-400); Red Blood Cell Count 4.53 10^6/uL (4.70-6.10); Red Cell Dist. Width 11.9 % (11.5-14.5)
[2023-10-01] MEDS: ZOSYN 50 IV ×2 (05:51→11:38)
[2023-10-01 05:56] LABS: Blood Urea Nitrogen 27 mg/dl (9-20); Calcium 8.9 mg/dl (8.4-10.2); Carbon Dioxide 23 mmol/L (22-30); Chloride 106 mmol/L (98-107); Estimated Creatinine Clearance 41 ml/min; Glucose 102 mg/dl (70-99); Sodium 136 mmol/L (135-145); eGFR 34.38
--- NOTE | 2023-10-01 07:27 | PN.DE.MGMTRT ---
Insulin Management
- -
10/01/2023 Diabetes Management Consult Follow up
Patient admitted 09/27 with R great toe pain and purulent drainage for 2 to 3 days. PMH type 2 diabetes. A1C on admission 12.4%, cr .6, eGFr >60.
Patient stated he was taking metformin 500 mg BID which he got in [place]. 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 I asked if he could afford $20.00 per month for additional medication, he said he could. He also stated [facility]. Diet
decreased from 2200 to 1800 ( patient is 5'6').
Patient is awake, alert, leaving shortly for test. Able to communicate and participate in discussion regarding diabetes.
Glucose stable yesterday range 99 to 153, with one elevation pre lunch, 212. Fasting this AM 102.
CR this AM 2.3, eGFR 38.25, will hold 1000 mg metformin BID and continue 5 mg Glyburide daily.
Patient states he has a glucose monitor at home but admits he was not testing regularly. Encouraged to test BID in pattern provided in diabetes education booklet which is circled. I also reviewed the two medications he is taking and circled in
booklet.
I spoke with patient nurse regarding diabetes plan of care.
Diabetes History
- -
Type of Diabetes: 2
Pre-Admission Diabetes Regimen
10/01/23
05:23
Creatinine 2.3 H
Lab Results
Hemoglobin A1c 12.4 % (4.0-5.6) H 09/28/23 09:50
Insulin Pump Settings
IP Diabetes Regimen
09/30/23 09/30/23 09/30/23
07:57 12:12 17:14
Glucose
POC Glucose 153 H 212 H 99
09/30/23 10/01/23
21:38 05:23
Glucose 102 H
POC Glucose 146 H
Meal type: Dinner
Meal type: Lunch
Meal type: Breakfast
Amount consumed: 100%
Amount consumed: 100%
Amount consumed: 100%
Patient Education
[2023-10-01 07:41] VITALS: BP 120/82
[2023-10-01 08:05] LABS: Glucose - Point of Care 100 mg/dl (70-99)
[2023-10-01] MEDS: NOVOLOG FLEXPEN-LOW RESISTANCE SC (08:05)
[2023-10-01] MEDS: MICRONASE PO (10:36)
[2023-10-01] MEDS: GLUCOTROL 2.5 MG PO (11:38)
[2023-10-01 12:07] VITALS: BP 131/84
[2023-10-01 12:21] LABS: Glucose - Point of Care 200 mg/dl (70-99)
[2023-10-01] MEDS: NOVOLOG FLEXPEN-LOW RESISTANCE 2 UNITS SC (14:14)
--- NOTE | 2023-10-01 14:58 | W.PN.ID1 ---
Date of Service
Date of Service: October 01, 2023
Today's Communication
Narrow Zosyn to ceftriaxone.
Follow wbc and renal function.
Assessment / Plan
# Diabetic left great toe infection with purulent cellulitis
# Leukocytosis - slightly improved
# ALFRED
# DM2 uncontrolled A1c 12.4
- Podiatry - s/p bedside debridement + pus cx: viridans strep
-Arterial duplex: suggestive of infrapopliteal and small vessel disease
- MRI: reactive BM edema vs osteo of distal phalanx
Plantar subcutaneous soft tissues adjacent to the first metatarsophalangeal joint, and this finding suggests a small complex abscess or complex phlegmon ->
Small amount of pus expressed at the site today.
-Podiatry is following.
-Narrow Zosyn to ceftriaxone.
-Follow wbc and renal function.
Chief Complaint
-: Cellulitis
Subjective / Review of Systems
No complaints.
Vital Signs / Physical Exam
Vital Signs
Vital Signs
Temp Pulse Resp BP Pulse Ox
98.7 F 84 16 131/84 97
10/01/23 12:07 10/01/23 12:07 10/01/23 12:07 10/01/23 12:07 10/01/23 12:07
Physical Exam
Constitutional: No Acute Distress
Cardiovascular: Regular Rate and S1/S2
Pulmonary: Clear
Wound: Other (Left hallux erythema decreased, plantar side of toe above PIPJ small wound with small amt of pus expressed)
Neurological: AO x 3
Objective Data
Lab Data
Lab Results
10/01/23 05:23
10/01/23 05:23
Estimated Creat Clear 41 ml/min 10/01/23 05:23
Lactic Acid 1.9 mmol/L (0.7-2.0) 09/28/23 11:05
Total Bilirubin 1.3 mg/dl (0.2-1.3) 09/28/23 09:50
AST 21 U/L (17-59) 09/28/23 09:50
ALT 25 U/L (0-50) 09/28/23 09:50
Alkaline Phosphatase 140 U/L (38-126) H 09/28/23 09:50
C-Reactive Protein Cancelled 09/28/23 14:17
Most recent labs reviewed.
Micro Results:
09/28/23 11:57 Blood Culture - Preliminary
Blood/Venous No Growth in 72 hours- Final report to follow
09/28/23 11:05 Blood Culture - Preliminary
Blood/Venous No Growth in 72 hours- Final report to follow
09/28/23 11:57 Wound Culture - Final
Abscess Viridans Streptococcus Group
Gram Stain - Final
09/29/23 MRI LLE wo and w contrast: Within the plantar soft tissues adjacent to the distal phalanx of the great toe, there is patchy enhancing intermediate T1-weighted signal suggesting cellulitis/inflammation, adjacent to foci of air seen on CT. No
evidence for a focal collection in this region. There is moderate patchy increased T2 and STIR signal and patchy enhancement of the marrow of the distal phalanx of the left great toe, without associated decreased T1-weighted signal. Main
differential considerations of reactive marrow edema and osteomyelitis. Please see above discussion, as MRI is highly sensitive for the detection of osteomyelitis but is less specific.
Small focus of central nonenhancement with peripheral enhancement within the plantar subcutaneous soft tissues adjacent to the first metatarsophalangeal joint, and this finding suggests a small complex abscess or complex phlegmon.
Care Review
Plan reviewed with: Physician (Drs. Camilo and Dennis)
--- NOTE | 2023-10-01 15:34 | W.PN.HOSP.TC ---
Today's Communication/Plan
-
Consulted vascular given arterial study results
Continue antibiotics
Assessment / Plan
Assessment / Plan
Physical Exam
General: No Apparent Distress and Conversant
HEENT: Normocephalic and Moist mucous membranes
Respiratory: Clear
Cardiac: S1/S2 and Regular Rhythm
GI: Soft, Non Tender and Normal Bowel Sounds
Musculoskeletal: No Cyanosis, No Edema and Other (Left great toe with scabs and dark-colored area erythema and warmth, mildly tender on palpation.)
Skin: Warm
Neuro: Awake, Alert and AO x 3
Psych: Calm and Intact Judgment/Insight
Assessment/Plan
Left Great Toe Cellulitis, Soft Tissue Infection
Purulent Drainage from Wound
-CRP elevated
-MRI report noted: edema vs. osteo.
-Status post Vancomycin, status post Zosyn
-Continue Ceftriaxone
-Consulted ID, Podiatry and Surgery, recommendations appreciated
-Podiatry: s/p bedside debridement + pus culture: viridans strep
-Arterial duplex studies: suggested infrapopliteal and small vessel disease
-Consulted vascular, recommendations appreciated
-Ambulate with Right foot WB on heel only and Lawall's consult for wedged surgical shoe.
Diabetes mellitus, uncontrolled
Hyperglycemia
-Glucose was 480 on admission
-Improved in the ER after IV fluids were given
-Insulin Sliding Scale and accuchecks AC and HS
-Consulted Diabetes MANAGER DISH, recommendations appreciated: hold 1000 mg metformin BID (due to renal function) but continue 5 mg Glyburide
DVT Prophylaxis: Lovenox
Code Status: Full Code
Anticipated Discharge: 24 - 48 hours
Subjective/Interval History
-
Date of Service: October 01, 2023
Patient was seen and examined. He denied pain, fever or any other symptoms or complaints.
Objective Data
-
Labs:
Laboratory Results
10/01/23
05:23
WBC 15.0 H
Hgb 13.2
Hct 38.1 L
Plt Count 307
Sodium 136
Potassium 4.0
Chloride 106
Carbon Dioxide 23
BUN 27 H
Creatinine 2.3 H
Glucose 102 H
Calcium 8.9
Vital Signs:
Vital Signs
Temp Pulse Resp BP Pulse Ox
98.7 F 84 16 131/84 97
10/01/23 12:07 10/01/23 12:07 10/01/23 12:07 10/01/23 12:07 10/01/23 12:07
I&O
09/30/23 10/01/23 10/02/23
06:59 06:59 06:59
Intake Total 1440 / 1440 1080 / 1080
Balance 1440 / 1440 1080 / 1080
[2023-10-01 15:41] VITALS: BP 133/82
--- NOTE | 2023-10-01 15:53 | CON.VAS ---
Consultation
Consultation Request
Date/Time Consultation Performed: 10/01/2023 1600
Requesting Provider: Shady Collins MD
Performing Provider: sEperanza Fragoso NP for Azar Valente MD
Reason for Consultation: Left hallux wound
Medical History
-
Chief Complaint: Left hallux wound
History of Present Illness:
This is a 48-year-old male with significant past medical history for diabetes who presented to [facility] ED on 09/28/2023 with reports of acute worsening of left hallux wound. Vascular surgery has been consulted in regards to wound healing
potential from a peripheral arterial standpoint. Patient notes he had a blister for perhaps a year on that left first toe. However, over the past 3 to 4 days it has worsened which brought him to the emergency room. Patient was seen by podiatry
blister unroofed. Patient denies any prior lower extremity revascularization procedures. Denies any prior lower extremity or foot wounds/nonhealing issues. Denies any history of coronary disease. Denies tobacco use. Denies nausea, fever, and
chills. He he has not seen a physician in 'years,' and receives his metformin from [place].
Past Medical History
Past Medical History: NIDDM
Social History
Tobacco: Non-Smoker
Allergies / Home Medications
Allergy/AdvReac Type Severity Reaction Status Date / Time
No Known Allergies Allergy Unverified 09/28/23 09:41
�Medication �Instructions �Recorded �Confirmed �Type
Triglycerides Medication 1 tab PO DAILY Supplement 09/28/23 09/28/23 History
metformin 500 mg tablet 500 mg PO BID Diabetes 09/28/23 09/28/23 History
Review of Systems
-
History Source: Patient
Constitutional: Reports No Symptoms
EENT: Reports No Symptoms
Respiratory: Reports No Symptoms
Cardiac: Reports No Symptoms
Vascular: Denies Leg Pain / Claudication, Numbness or Tingling
Abdomen/GI: Reports No Symptoms
: Reports No Symptoms
Musculoskeletal: Reports No Symptoms
Skin: Reports Other (Left hallux wound past 2 to 3 days)
Neurological: Reports No Symptoms
Endocrine: Reports No Symptoms
Physical Exam
Vital Signs
Temp Pulse Resp BP Pulse Ox
98.7 F 80 16 133/82 97
10/01/23 15:41 10/01/23 15:41 10/01/23 15:41 10/01/23 15:41 10/01/23 15:41
Lab Results
10/01/23 05:23
10/01/23 05:23
Physical Exam
General: No Apparent Distress and Comfortable
HEENT: Normocephalic, Anicteric and Atraumatic
Respiratory: Non Labored Respirations
Cardiac: Negative JVD
GI: Soft, Non Tender and Non Distended
Musculoskeletal: No Edema
Skin: Other (Left first toe plantar aspect especially with what appears to be unroofed blister. Relatively superficial ulceration. In the central portion there is some slight superficial black/scab or eschar tissue. Does not appear to have
significant depth.)
Neuro: AO x 3
Pulses: Bilateral Femoral: +2, Bilateral Popliteal: +2 and Left Dorsalis Pedis: +2
Assessment / Plan
-
Assessment: 48-year-old male with diabetes and left hallux wound
Plan:
Suspect sufficient perfusion for wound healing as he has easily palpable left DP pulse with a toe pressure 75 mmHg, marginal for wound healing and a diabetic. However, for completeness sake could pursue arteriography (if at all has peripheral
disease it is likely infrapopliteal, or more likely small vessel disease that may not be revascularizable). Regardless with his creatinine elevated as is, would not pursue angiography until he is optimized.
Currently would advise to complete any podiatric management/observation of healing of the toe and if demonstrates signs of nonhealing, then can pursue arteriography in that setting. If he is healing we can follow him in the outpatient setting.
However, if it is felt strongly that he has osteomyelitis and would require potential toe amputation, likely would favor arteriography before hand. If plan is to proceed with two amputation please let our team know, and can plan angiography early
next week once renally optimized.
I performed this shared service with the attending. I evaluated the patient [id number] and have entered clinical documentation as shown in the encounter note. I performed the following component(s): history and physical exam. Note that medical
decision making is not final until attested by vascular attending.
--- NOTE | 2023-10-01 16:16 | W.PN.UPDATE ---
Update Note
Progress Note Update
48-year-old male asked to evaluate regarding left first toe wound. Slightly confusing, but it sounds like he has had a blister for perhaps a year on that left first toe. However very recently its gotten worse that brought him to the emergency
room. Patient was seen by podiatry hill unroofed. Asked to evaluate from a peripheral arterial standpoint. Patient denies any prior lower extremity revascularization procedures. Denies any prior lower extremity or foot wounds/nonhealing
issues. Denies any history of coronary disease. Denies tobacco use.
On exam/she is awake and alert. Head is normocephalic and atraumatic. Eyes are anicteric. Neck is soft without jugular venous distention. Breathing is unlabored. Abdomen is soft, nondistended, nontender. Lower extremity with 2+ femoral,
popliteal pulses palpable bilaterally. On the right side I difficulty palpating pedal pulses. On the left side he has an easily palpable 2+ DP pulse. Feet are both pink and warm and well-perfused. Left first toe plantar aspect especially with
what appears to be unroofed blister. Relatively superficial ulceration. In the central portion there is some slight superficial black/scab or eschar tissue. Does not appear to have significant depth.
Creatinine 2.3 today. Appears to have been elevated from baseline.
Noninvasive arterial imaging studies reviewed. ABIs not obtainable secondary to noncompressible vessels. Right-sided TBI within normal limits. Left side TBI 0.52. (Absolute toe pressure 75 mmHg). Multiphasic waveforms from common femoral
through popliteal arteries bilaterally. Left-sided multiphasic posterior tibial waveforms, monophasic dorsalis pedis.
Plan/ I think likely has sufficient perfusion for wound healing. Has easily palpable left DP pulse. Toe pressure 75 mmHg, marginal for wound healing and a diabetic. However, for completeness sake could pursue arteriography (if at all has
peripheral disease it is likely infrapopliteal, or more likely small vessel disease that may not be revascularizable). Regardless with his creatinine elevated as is, would not pursue angiography until he is optimized. I think it is reasonable for
him to complete any podiatric management/observation of healing of the toe and if demonstrates signs of nonhealing, then can pursue arteriography in that setting. If that is the case, I can see him as an outpatient. If, however, it is felt
strongly that he has osteomyelitis and would require potential toe amputation, likely would favor arteriography before hand. Please let me know if that's the case, and can plan angiography early next week once renally optimized.
[2023-10-01 16:36] LABS: Glucose - Point of Care 155 mg/dl (70-99)
--- NOTE | 2023-10-01 18:18 | W.PN.POD ---
Today's Communication
Today's Communication
Patient to OR tomorrow for incision and drainage/debridement of left great toe.
NPO after midnight.
Assessment / Plan
-
Assessment:
Infected diabetic wound of the great toe with cellulitis LLE
Uncontrolled Diabetes Mellitus with diabetic peripheral neuropathy
Hyperlipidemia
Plan:
MRI inconclusive for osteomyelitis.
Despite overall improvement of left great toe wound, a small plantar defect with minor purulence remains distally.
Patient to OR tomorrow for incision and drainage/debridement of left great toe.
Vascular note appreciated. If amputation ultimately becomes necessary, we will pursue optimizing perfusion as recommended.
NPO after midnight.
Restricted WB on left heel to bathroom only.
Subjective
Chief Complaint
Diabetic infection of left great toe.
Subjective
Resting comfortably in bed. Denies fever, chills or sweats. No pain in the toe/foot.
Objective
Temp Pulse Resp BP Pulse Ox
98.7 F 80 16 133/82 97
10/01/23 15:41 10/01/23 15:41 10/01/23 15:41 10/01/23 15:41 10/01/23 15:41
10/01/23 05:23
10/01/23 05:23
Vital Signs and Lab results were reviewed.
WBC: 15.0
DP pulses, left +1/4, right non-palpable. PT pulse left 0/4, right 1/4.
Skin is warm to touch, CFT to digits 1+ seconds, Diminished digital hair, bilaterally.
Mild to moderate erythema and edema focal to the left great toe. No ascending cellulitis.
The ulceration of the plantar medial great toe proximally has healed and the area about the 1.0 cm defect along the plantar IPJ area also improving, less necrosis, and drying out, however, the defect still communicates deeply, and light droplet of
purulence is expressed from this wound.
09/28/23 XRAYS, Left foot: There is no clear evidence of cortical destruction or osteomyelitis of the distal phalanx of the great toe.
09/28/33 MRI, left foot: Within the plantar soft tissues adjacent to the distal phalanx of the great toe, there is patchy enhancing intermediate T1-weighted signal suggesting cellulitis/inflammation, adjacent to foci of air seen on CT. No evidence
for a focal collection in this region.
There is moderate patchy increased T2 and STIR signal and patchy enhancement of the marrow of the distal phalanx of the left great toe, without associated decreased T1-weighted signal. Main differential considerations of reactive marrow edema and
osteomyelitis.
10/01/23 Noninvasive arterial imaging studies: ABIs not obtainable secondary to noncompressible vessels. Right-sided TBI within normal limits. Left side TBI 0.52. (Absolute toe pressure 75 mmHg). Multiphasic waveforms from common femoral through
popliteal arteries bilaterally. Left-sided multiphasic posterior tibial waveforms, monophasic dorsalis pedis. Likely sufficient perfusion for wound healing.
Wound culture: [facility]-Final
[2023-10-01] MEDS: STERILE WATER FOR INJECTION 20 ML IV (18:34)
[2023-10-01] MEDS: ROCEPHIN 2000 MG IV (18:35)
[2023-10-01] MEDS: LOVENOX 40 MG SC (18:35)
[2023-10-01] MEDS: NOVOLOG FLEXPEN-LOW RESISTANCE 1 UNITS SC (18:36)
[2023-10-01 19:45] VITALS: BP 146/85
[2023-10-01 21:39] LABS: Glucose - Point of Care 217 mg/dl (70-99)
[2023-10-01 23:32] VITALS: BP 147/92
[2023-10-02] VITALS (16 sets, daily range): BP systolic 14–169; BP diastolic 82–107
[2023-10-02 05:38] LABS: % Basophils 0.6 % (0-2); % Immature Granulocytes 0.7 % (0-0.5); % Lymphocytes 16.5 % (20.5-51.1); % Monocytes 10.5 % (1.7-9.3); % Neutrophils 69.7 % (42.2-75.2); Absolute Basophils 0.1 10^3/uL (0-0.2); Absolute Eosinophils 0.2 10^3/uL (0-0.7); Absolute Immature Granulocytes 0.1 10^3/uL (0-0.05); Absolute Monocytes 1.3 10^3/uL (0.1-0.6); Absolute Neutrophils 8.5 10^3/uL (1.4-6.5); Hematocrit 39.1 % (39.0-52.0); Hemoglobin 13.1 g/dL (13.0-18.0); Mean Corp Hgb Conc. 33.5 g/dL (33.0-37.0); Mean Corpuscular Hgb 28.9 pg (27.0-31.0); Mean Corpuscular Volume 86.1 fL (80.0-94.0); Mean Platelet Volume 9.8 fL (7.4-10.4); Nucleated Red Blood Cells % 0 % (-); Platelet Count 306 10^3/uL (130-400); Red Blood Cell Count 4.54 10^6/uL (4.70-6.10); Red Cell Dist. Width 11.9 % (11.5-14.5); White Blood Cell Count 12.2 10^3/uL (4.8-10.8)
[2023-10-02 06:29] LABS: Blood Urea Nitrogen 35 mg/dl (9-20); Calcium 9.3 mg/dl (8.4-10.2); Carbon Dioxide 22 mmol/L (22-30); Chloride 105 mmol/L (98-107); Estimated Creatinine Clearance 45 ml/min; Glucose 223 mg/dl (70-99); Potassium 4.3 mmol/L (3.5-5.1); Sodium 137 mmol/L (135-145); eGFR 38.35
[2023-10-02] MEDS: GLUCOTROL 2.5 MG PO (07:57)
[2023-10-02] MEDS: NOVOLOG FLEXPEN-LOW RESISTANCE 2 UNITS SC (08:03)
[2023-10-02 08:04] LABS: Glucose - Point of Care 207 mg/dl (70-99)
--- NOTE | 2023-10-02 08:55 | PN.DE.MGMTRT ---
Insulin Management
- -
10/02/2023: Diabetes Management Consult F/U:
Patient admitted 09/27 with R great toe pain and purulent drainage for 2 to 3 days.
PMH T2DM, A1C on admission 12.4%, cr .6, eGFr >60.
Patient stated he was taking metformin 500 mg BID which he got in [place]. 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 I asked if he could afford $20.00 per month for additional medication, he said he could. He also stated he [facility]. Diet
decreased from 2200 to 1800 ( patient is 5'6').
Patient is awake, A/O x3, NPO for I&D of left great toe, states he is very hungry and is asking for water. Explained to pt that he is NPO for procedure later today and should not consume any liquids or solids. He is able to communicate and
participate in discussion regarding diabetes.
Glyburide was changed to Glipizide 2.5mg BID and MFM was held yesterday due to ALFRED, Cr 2.3-->2.1 today, eGFR 38.35
Glucose remains elevated, FBG 223 (V) this AM, premeal range of 100 to 217 requiring 1-2 units of corrective insulin.
Discussed with nurse, instructed to use corrective insulin while NPO.
Will resumed Glipizide when diet is resumed at increased dose of 5mg BID.
Had a lengthy d/w pt regarding dietary choices at home and need to adhere to a diabetic diet. Emphasized exercise and encouraged him to increase his physical activity and to lose weight. Also discussed medications and cost since he has no insurance.
Instructed pt to [facility] since they will honor low cost of MFM and Glipizide, which pt states he can afford.
Diabetes History
- -
Type of Diabetes: 2
Pre-Admission Diabetes Regimen
10/02/23
05:24
Creatinine 2.1 H
Lab Results
Hemoglobin A1c 12.4 % (4.0-5.6) H 09/28/23 09:50
Insulin Pump Settings
IP Diabetes Regimen
10/01/23 10/01/23 10/01/23
12:20 16:35 21:38
Glucose
POC Glucose 200 H 155 H 217 H
10/02/23 10/02/23
05:24 08:02
Glucose 223 H
POC Glucose 207 H
Patient Education
--- NOTE | 2023-10-02 09:59 | W.PN.ID1 ---
Date of Service
Date of Service: October 02, 2023
Today's Communication
Continue ceftriaxone. Length of abx therapy will depend on OR findings whether or not bone exposed.
Assessment / Plan
# Diabetic left great toe infection with purulent cellulitis
# Leukocytosis - improving
# ALFRED - improving
# DM2 uncontrolled A1c 12.4
- Podiatry - s/p bedside debridement + pus cx: viridans strep
-Arterial duplex: suggestive of infrapopliteal and small vessel disease
Per Vascular, hold off arteriogram due to ALFRED
- MRI: reactive BM edema vs osteo of distal phalanx
Plantar subcutaneous soft tissues adjacent to the first metatarsophalangeal joint, and this finding suggests a small complex abscess or complex phlegmon ->
Small amount of pus expressed at the site
-Podiatry is following. To OR today.
-Continue ceftriaxone. Length of abx therapy will depend on OR findings whether or not bone exposed.
-Follow wbc and renal function.
Chief Complaint
-: Cellulitis
Subjective / Review of Systems
Going to OR today.
Vital Signs / Physical Exam
Vital Signs
Vital Signs
Temp Pulse Resp BP Pulse Ox
98.5 F 78 16 143/88 96
10/02/23 07:53 10/02/23 07:53 10/02/23 07:53 10/02/23 07:53 10/02/23 07:53
Physical Exam
Constitutional: No Acute Distress
Cardiovascular: Regular Rate and S1/S2
Pulmonary: Clear
Gastrointestinal: Soft, Non Tender and Non Distended
Objective Data
Lab Data
Lab Results
10/02/23 05:24
10/02/23 05:24
Estimated Creat Clear 45 ml/min 10/02/23 05:24
Lactic Acid 1.9 mmol/L (0.7-2.0) 09/28/23 11:05
Total Bilirubin 1.3 mg/dl (0.2-1.3) 09/28/23 09:50
AST 21 U/L (17-59) 09/28/23 09:50
ALT 25 U/L (0-50) 09/28/23 09:50
Alkaline Phosphatase 140 U/L (38-126) H 09/28/23 09:50
C-Reactive Protein Cancelled 09/28/23 14:17
Most recent labs reviewed.
Micro Results:
09/28/23 11:57 Blood Culture - Preliminary
Blood/Venous No Growth in 72 hours- Final report to follow
09/28/23 11:05 Blood Culture - Preliminary
Blood/Venous No Growth in 72 hours- Final report to follow
09/28/23 11:57 Wound Culture - Final
Abscess Viridans Streptococcus Group
Gram Stain - Final
09/29/23 MRI LLE wo and w contrast: Within the plantar soft tissues adjacent to the distal phalanx of the great toe, there is patchy enhancing intermediate T1-weighted signal suggesting cellulitis/inflammation, adjacent to foci of air seen on CT. No
evidence for a focal collection in this region. There is moderate patchy increased T2 and STIR signal and patchy enhancement of the marrow of the distal phalanx of the left great toe, without associated decreased T1-weighted signal. Main
differential considerations of reactive marrow edema and osteomyelitis. Please see above discussion, as MRI is highly sensitive for the detection of osteomyelitis but is less specific.
Small focus of central nonenhancement with peripheral enhancement within the plantar subcutaneous soft tissues adjacent to the first metatarsophalangeal joint, and this finding suggests a small complex abscess or complex phlegmon.
[2023-10-02 12:02] LABS: Glucose - Point of Care 140 mg/dl (70-99)
[2023-10-02] MEDS: NOVOLOG FLEXPEN-LOW RESISTANCE SC ×2 (12:24→17:47)
--- NOTE | 2023-10-02 15:39 | CM ---
Case management following for d/c planning
Pt for OR today for I&D of R great toe
Continues on IV antibiotics
Insurance mending
internal security manager will follow for needs after I&D
Plan - anticipate home - needs TBD
[2023-10-02 16:01] LABS: Glucose - Point of Care 142 mg/dl (70-99)
--- NOTE | 2023-10-02 16:56 | W.PN.UPDATE ---
Update Note
Progress Note Update
Patient consent was obtained at bedside for Excision/removal of infected and non-viable skin, soft tissue and bone, left great toe to address the persistent diabetic infection. The patient understands the benefits, risks and possible complications
of the proposed procedure, as well as the potential need for additional surgery.
Procedure under local with IV sedation:
1. Incision and drainage of abscess, and excisional debridement of infected/non-viable soft tissue, full thickness, left great toe.
2. Bone biopsy of the distal phalanx, left great toe.
Prognosis fair.
Bleeding through tourniquet due to calcification of vessels.
Wound did track to bone, though bone integrity intact/firm. Specimen sent for micro and path.
Resume diet.
PO XRAYS ordered
NWB on left foot for 24 hours.
[2023-10-02 17:03] LABS: Glucose - Point of Care 135 mg/dl (70-99)
--- NOTE | 2023-10-02 17:31 | W.PN.HOSP.TC ---
Today's Communication/Plan
-
-Bone biopsy and I&D of left great toe by podiatry today
-NWB on left foot for 24 hours.
-ALFRED work-up
Assessment / Plan
Assessment / Plan
Physical Exam
General: No Apparent Distress and Conversant
HEENT: Normocephalic and Moist mucous membranes
Respiratory: Clear
Cardiac: S1/S2 and Regular Rhythm
GI: Soft, Non Tender and Normal Bowel Sounds
Musculoskeletal: No Cyanosis, No Edema and Other (Left great toe with scabs and dark-colored area erythema and warmth, mildly tender on palpation.)
Skin: Warm
Neuro: Awake, Alert and AO x 3
Psych: Calm and Intact Judgment/Insight
Assessment/Plan
Left Great Toe Cellulitis, Soft Tissue Infection
Purulent Drainage from Wound
-CRP elevated
-MRI report noted: edema vs. osteo.
-Status post Vancomycin, status post Zosyn
-Continue Ceftriaxone
-Consulted ID, Podiatry and Surgery, recommendations appreciated
-Podiatry: s/p bedside debridement + pus culture: viridans strep
-Arterial duplex studies: suggested infrapopliteal and small vessel disease
-Consulted vascular, recommendations appreciated
-Bone biopsy and I&D of left great toe by podiatry today
-NWB on left foot for 24 hours.
Diabetes mellitus, uncontrolled
Hyperglycemia
-Glucose was 480 on admission
-Improved in the ER after IV fluids were given
-Insulin Sliding Scale and accuchecks AC and HS
-Consulted Diabetes BILINGUAL MANAGER, recommendations appreciated: hold 1000 mg metformin BID (due to renal function) but continue Glipizide
Acute Kidney Injury
-Initial Cr on admission was 0.5---->2.3-->2.1
-Prerenal vs. nephrotoxic
-Check Renal and Bladder ultrasound
-Recheck BMP in the morning
-Consult nephrology
DVT Prophylaxis: Lovenox
Code Status: Full Code
Anticipated Discharge: > 48 hours
Subjective/Interval History
-
Date of Service: October 02, 2023
Patient was seen and examined. He reported no new symptoms or complaints.
Objective Data
-
Labs:
Laboratory Results
10/02/23
05:24
WBC 12.2 H
Hgb 13.1
Hct 39.1
Plt Count 306
Sodium 137
Potassium 4.3
Chloride 105
Carbon Dioxide 22
BUN 35 H
Creatinine 2.1 H
Glucose 223 H
Calcium 9.3
Vital Signs:
Vital Signs
Temp Pulse Resp BP Pulse Ox
97.0 F 72 14 146/92 98
10/02/23 16:52 10/02/23 17:15 10/02/23 17:15 10/02/23 17:15 10/02/23 17:07
I&O
10/01/23 10/02/23 10/03/23
06:59 06:59 06:59
Intake Total 1080 / 1080 1140 / 1140
Balance 1080 / 1080 1140 / 1140
[2023-10-02] MEDS: NSS 1000 IV (17:37)
[2023-10-02] MEDS: GLUCOTROL 5 MG PO (17:59)
[2023-10-02] MEDS: LOVENOX 40 MG SC (17:59)
[2023-10-02] MEDS: ROCEPHIN 2000 MG IV (17:59)
[2023-10-02] MEDS: STERILE WATER FOR INJECTION 20 ML IV (18:00)
[2023-10-02 18:05] LABS: Glucose - Point of Care 156 mg/dl (70-99)
[2023-10-02 21:35] LABS: Glucose - Point of Care 268 mg/dl (70-99)
[2023-10-02 23:36] LABS: Urine Albumin Negative (Neg - Trace); Urine Bilirubin Negative (Negative); Urine Character Clear (Clear); Urine Color Straw; Urine Glucose 1+ (Negative); Urine Ketone Negative (Negative); Urine Leukocyte Negative (Negative); Urine Nitrite Negative (Negative); Urine Occult Blood Negative (Negative); Urine Specific Gravity 1.015 (<1.030); Urine Urobilinogen Negative (Neg - 1+)
[2023-10-03 00:38] LABS: Urine Sodium 42 mmol/L (30-90)
[2023-10-03 03:05] VITALS: BP 142/89
[2023-10-03 07:00] VITALS: BP 138/84
[2023-10-03 07:35] LABS: Glucose - Point of Care 158 mg/dl (70-99)
[2023-10-03] MEDS: NSS 1000 IV ×2 (07:38→19:44)
[2023-10-03] MEDS: GLUCOTROL 5 MG PO ×2 (07:38→17:26)
[2023-10-03] MEDS: GLUCOTROL 2.5 MG PO (07:38)
[2023-10-03] MEDS: NOVOLOG FLEXPEN-LOW RESISTANCE 1 UNITS SC ×2 (07:40→17:23)
--- NOTE | 2023-10-03 08:44 | W.PN.ID1 ---
Date of Service
Date of Service: October 03, 2023
Today's Communication
Continue ceftriaxone.
Assessment / Plan
# Diabetic left great toe infection with purulent cellulitis, probable osteo
# Leukocytosis - improving
# ALFRED - improving
# DM2 uncontrolled A1c 12.4
- Podiatry - s/p bedside debridement + pus cx: viridans strep
-Arterial duplex: suggestive of infrapopliteal and small vessel disease
Per Vascular, hold off arteriogram due to ALFRED
- MRI: reactive BM edema vs osteo of distal phalanx
Plantar subcutaneous soft tissues adjacent to the first metatarsophalangeal joint, and this finding suggests a small complex abscess or complex phlegmon ->
Small amount of pus expressed at the site
-10/01 s/p OR I+D , bone biopsy. Wound noted to track to bone; bone viable.
- Await bone cx and path.
-Continue ceftriaxone.
-Follow wbc and renal function.
Chief Complaint
-: Cellulitis
Subjective / Review of Systems
No complaints.
Vital Signs / Physical Exam
Vital Signs
Vital Signs
Temp Pulse Resp BP Pulse Ox
98.3 F 72 15 138/84 97
10/03/23 07:00 10/03/23 07:00 10/03/23 07:00 10/03/23 07:00 10/03/23 07:00
Physical Exam
Constitutional: No Acute Distress and Comfortable
Pulmonary: Clear
Gastrointestinal: Soft, Non Tender and Non Distended
Wound: Other (left fooot dressing in place.)
Objective Data
Lab Data
Estimated Creat Clear 45 ml/min 10/02/23 05:24
Lactic Acid 1.9 mmol/L (0.7-2.0) 09/28/23 11:05
Total Bilirubin 1.3 mg/dl (0.2-1.3) 09/28/23 09:50
AST 21 U/L (17-59) 09/28/23 09:50
ALT 25 U/L (0-50) 09/28/23 09:50
Alkaline Phosphatase 140 U/L (38-126) H 09/28/23 09:50
C-Reactive Protein Cancelled 09/28/23 14:17
Most recent labs reviewed.
Micro Results:
10/02/23 16:43 Tissue Culture - Pending
Toe Gram Stain - Preliminary
09/28/23 11:57 Blood Culture - Preliminary
Blood/Venous No Growth in 4 days- Final report to follow
09/28/23 11:05 Blood Culture - Preliminary
Blood/Venous No Growth in 4 days- Final report to follow
09/28/23 11:57 Wound Culture - Final
Abscess Viridans Streptococcus Group
Gram Stain - Final
09/29/23 MRI LLE wo and w contrast: Within the plantar soft tissues adjacent to the distal phalanx of the great toe, there is patchy enhancing intermediate T1-weighted signal suggesting cellulitis/inflammation, adjacent to foci of air seen on CT. No
evidence for a focal collection in this region. There is moderate patchy increased T2 and STIR signal and patchy enhancement of the marrow of the distal phalanx of the left great toe, without associated decreased T1-weighted signal. Main
differential considerations of reactive marrow edema and osteomyelitis. Please see above discussion, as MRI is highly sensitive for the detection of osteomyelitis but is less specific.
Small focus of central nonenhancement with peripheral enhancement within the plantar subcutaneous soft tissues adjacent to the first metatarsophalangeal joint, and this finding suggests a small complex abscess or complex phlegmon.
[2023-10-03 08:47] LABS: % Basophils 0.6 % (0-2); % Eosinophils 1.7 % (0-6); % Immature Granulocytes 0.5 % (0-0.5); % Lymphocytes 19.1 % (20.5-51.1); % Monocytes 9.3 % (1.7-9.3); % Neutrophils 68.8 % (42.2-75.2); Absolute Basophils 0.1 10^3/uL (0-0.2); Absolute Eosinophils 0.2 10^3/uL (0-0.7); Absolute Immature Granulocytes 0.1 10^3/uL (0-0.05); Absolute Lymphocytes 2.2 10^3/uL (1.2-3.4); Absolute Monocytes 1.1 10^3/uL (0.1-0.6); Absolute Neutrophils 7.9 10^3/uL (1.4-6.5); Hemoglobin 12.7 g/dL (13.0-18.0); Mean Corp Hgb Conc. 33.4 g/dL (33.0-37.0); Mean Corpuscular Volume 86.8 fL (80.0-94.0); Mean Platelet Volume 9.7 fL (7.4-10.4); Nucleated Red Blood Cells % 0 % (-); Platelet Count 334 10^3/uL (130-400); Red Blood Cell Count 4.38 10^6/uL (4.70-6.10); Red Cell Dist. Width 11.7 % (11.5-14.5); White Blood Cell Count 11.5 10^3/uL (4.8-10.8)
[2023-10-03 09:21] LABS: Vancomycin Random < 5.0 ug/ml
[2023-10-03 09:24] LABS: Blood Urea Nitrogen 34 mg/dl (9-20); Calcium 8.7 mg/dl (8.4-10.2); Carbon Dioxide 23 mmol/L (22-30); Chloride 106 mmol/L (98-107); Estimated Creatinine Clearance 56 ml/min; Glucose 166 mg/dl (70-99); Potassium 4.5 mmol/L (3.5-5.1); Sodium 136 mmol/L (135-145); eGFR 49.42
--- NOTE | 2023-10-03 10:33 | W.CON.NEPH ---
Consultation
-
Date/Time Consultation Requested: October 03, 2023 7 AM
Date/Time Consultation Performed: October 03, 2019 4:10 AM
Requesting Provider: Dr. Collins
Performing Provider: Dr. Lopez
Reason for Consultation: ALFRED
Medical History
-
Chief Complaint: ALFRED
History of Present Illness:
This is a 48-year-old gentleman who has diabetes mellitus type 2 treated with metformin therapy who present to the emergency room on the of this month with worsening left great toe wound. This had progressed over 4 days time. He has not seen
a healthcare provider in many years. On admission his creatinine was 0.5 but over the next few days it increased up to 2.3. He received antibiotics for his toe wound and ultimately underwent incision and drainage of the wound. His blood pressures
have been on the higher side though stable.
Past Medical History
Diabetes mellitus type 2, hypertension
Social History
Tobacco: Non-Smoker
Alcohol: Occasional
Family History
No CKD
Allergies / Home Medications
Allergy/AdvReac Type Severity Reaction Status Date / Time
No Known Allergies Allergy Unverified 09/28/23 09:41
�Medication �Instructions �Recorded �Confirmed �Type
Triglycerides Medication 1 tab PO DAILY Supplement 09/28/23 09/28/23 History
metformin 500 mg tablet 500 mg PO BID Diabetes 09/28/23 09/28/23 History
Review of Systems
-
No chest pain or shortness of breath. No fevers. Some left foot pain some sensation of swelling in the left foot. The remainder of the complete review of systems was negative
Physical Exam
Vital Signs
Vital Signs
Temp Pulse Resp BP Pulse Ox
98.3 F 72 15 138/84 97
10/03/23 07:00 10/03/23 07:00 10/03/23 07:00 10/03/23 07:00 10/03/23 07:00
Lab Results
WBC 11.5 10^3/uL (4.8-10.8) H 10/03/23 08:20
RBC 4.38 10^6/uL (4.70-6.10) L 10/03/23 08:20
Hgb 12.7 g/dL (13.0-18.0) L 10/03/23 08:20
Hct 38.0 % (39.0-52.0) L 10/03/23 08:20
Plt Count 334 10^3/uL (130-400) 10/03/23 08:20
Sodium 136 mmol/L (135-145) 10/03/23 08:21
Potassium 4.5 mmol/L (3.5-5.1) 10/03/23 08:21
Chloride 106 mmol/L (98-107) 10/03/23 08:21
Carbon Dioxide 23 mmol/L (22-30) 10/03/23 08:21
BUN 34 mg/dl (9-20) H 10/03/23 08:21
Creatinine 1.7 mg/dL (0.7-1.3) H 10/03/23 08:21
eGFR 49.42 10/03/23 08:21
Glucose 166 mg/dl (70-99) H 10/03/23 08:21
Calcium 8.7 mg/dl (8.4-10.2) 10/03/23 08:21
Albumin 4.0 g/dl (3.5-5.0) 09/28/23 09:50
Physical Exam
Patient is awake alert oriented and in no distress. Mood and affect were pleasant, insight and judgment were good. Pupils are equal round and reactive to light, extraocular movements are intact, sclera were anicteric. Hearing was normal, ears and
nose are intact. Oropharynx was clear. Neck was supple with trachea midline and no thyromegaly. Heart was regular rate and rhythm without rubs. Lower extremities without edema. Lungs were clear to auscultation bilaterally and with normal
excursion. Abdomen was soft, nontender, with normal active bowel sounds, and no hepatosplenomegaly. Skin was without rash and with normal turgor.
Data Reviewed
-
CT Scan: Report Reviewed by me (CT lower extremity without contrast on September 29, 2023 shows left foot edema with bubble near the soft tissue.)
MRI: Report Reviewed by me (MRI of the left foot on September 29, 2023 shows left great toe cellulitis and foot myositis)
Labs: Labs Reviewed by me (Creatinine 1.7, potassium 4.5, bicarbonate 23, urine creatinine 45, urine sodium 42, vancomycin level less than 5)
Old Records: Reviewed
Assessment/Plan
-
Assessment:
Diabetic left great toe infection with cellulitis, possible osteomyelitis
Acute kidney injury
Diabetes mellitus type 2 uncontrolled
Hypertension
Plan:
At this point his urinalysis is otherwise fairly bland and his acute kidney injury is likely related to antibiotics, particularly vancomycin which has already been discontinued.
Follow basic metabolic panel for now, I suspect that this will improve spontaneously
Will sign off please call for questions
[2023-10-03] MEDS: TYLENOL 650 MG PO (10:57)
[2023-10-03 11:00] VITALS: BP 153/84
[2023-10-03 11:26] LABS: Glucose - Point of Care 278 mg/dl (70-99)
[2023-10-03] MEDS: NOVOLOG FLEXPEN-LOW RESISTANCE 3 UNITS SC (13:27)
[2023-10-03 15:00] VITALS: BP 145/77
[2023-10-03 16:31] LABS: Glucose - Point of Care 159 mg/dl (70-99)
[2023-10-03] MEDS: STERILE WATER FOR INJECTION 20 ML IV (17:23)
[2023-10-03] MEDS: LOVENOX 40 MG SC (17:24)
[2023-10-03] MEDS: ROCEPHIN 2000 MG IV (17:24)
--- NOTE | 2023-10-03 18:03 | W.PN.POD ---
Today's Communication
Today's Communication
Wound is stable and erythema/cellulitis resolving.
Continue local wound care.
Assessment / Plan
-
Assessment:
Infected diabetic wound of the great toe with cellulitis LLE
S/P one day I&D, debridement and bone biopsy, left great toe.
Uncontrolled Diabetes Mellitus with diabetic peripheral neuropathy
Hyperlipidemia
ALFRED-likely due to Vanco use-resolving.
Plan:
Questionable osteomyelitis. Await bone culture and path results.
ID note appreciated. Continue Ceftriaxone.
Wound is stable and erythema/cellulitis resolving.
Local wound care.
Restricted WB on left heel to bathroom only.
Subjective
Chief Complaint
S/P one day I & D, debridement and bone biopsy, left great toe
Subjective
Patient reports some pain in the foot this morning, otherwise pain free.
Denies fever, chills or sweats. No new concerns.
Objective
Temp Pulse Resp BP Pulse Ox
98.3 F 67 16 145/77 98
10/03/23 15:00 10/03/23 15:00 10/03/23 15:00 10/03/23 15:00 10/03/23 15:00
10/03/23 08:20
10/03/23 08:21
Vital Signs and Lab results were reviewed.
WBC: 11.5
DP pulses, left +1/4, right non-palpable. PT pulse left 0/4, right 1/4.
Skin is warm to touch, CFT to digits 1+ seconds, Diminished digital hair, bilaterally.
The erythema about the left great toe dorsally and plantarly is resolving.
The surgical wound is clean and essentially dry. No malodor. No discharge. Early granulation noted. Wound is 2.5cm x 1.2 cm x 0.5cm deep. No exposed bone.
-09/28/23 XRAYS, Left foot: There is no clear evidence of cortical destruction or osteomyelitis of the distal phalanx of the great toe.
-09/28/33 MRI, left foot: Within the plantar soft tissues adjacent to the distal phalanx of the great toe, there is patchy enhancing intermediate T1-weighted signal suggesting cellulitis/inflammation, adjacent to foci of air seen on CT. No evidence
for a focal collection in this region.
There is moderate patchy increased T2 and STIR signal and patchy enhancement of the marrow of the distal phalanx of the left great toe, without associated decreased T1-weighted signal. Main differential
considerations of reactive marrow edema and osteomyelitis.
-10/01/23 Noninvasive arterial imaging studies: ABIs not obtainable secondary to noncompressible vessels. Right-sided TBI within normal limits. Left side TBI 0.52. (Absolute toe pressure 75 mmHg). Multiphasic waveforms from common femoral
through popliteal arteries bilaterally. Left-sided multiphasic posterior tibial waveforms, monophasic dorsalis pedis. Likely sufficient perfusion for wound healing.
Wound culture: [facility]-Final
--- NOTE | 2023-10-03 18:50 | W.PN.HOSP.TC ---
Today's Communication/Plan
-
ALFRED improving
Continue Abx
Follow cultures
Appreciate nephrology, ID and podiatry
Assessment / Plan
Assessment / Plan
Physical Exam
General: No Apparent Distress and Conversant
HEENT: Normocephalic and Moist mucous membranes
Respiratory: Clear
Cardiac: S1/S2 and Regular Rhythm
GI: Soft, Non Tender and Normal Bowel Sounds
Musculoskeletal: No Cyanosis, No Edema and Other (Left great toe with scabs and dark-colored area erythema and warmth, mildly tender on palpation.)
Skin: Warm
Neuro: Awake, Alert and AO x 3
Psych: Calm and Intact Judgment/Insight
Assessment/Plan
Left Great Toe Cellulitis, Soft Tissue Infection, probable osteo
Purulent Drainage from Left Big Toe Wound
-CRP elevated
-MRI report noted: edema vs. osteo.
-Status post Vancomycin, status post Zosyn
-Continue Ceftriaxone
-Consulted ID, Podiatry and Surgery, recommendations appreciated
-Podiatry: s/p bedside debridement + pus culture: viridans strep
-Arterial duplex studies: suggested infrapopliteal and small vessel disease
-Hold off on Arteriogram at this time due to ALFRED
-Consulted vascular, recommendations appreciated
-Bone biopsy and I&D of left great toe by podiatry on 10/02/23
-Restricted WB on left heel to bathroom only.
Diabetes mellitus, uncontrolled
Hyperglycemia
-Glucose was 480 on admission
-Improved in the ER after IV fluids were given
-Insulin Sliding Scale and accuchecks AC and HS
-Consulted Diabetes SUPERINTENDENT CIRCUS, recommendations appreciated: hold 1000 mg metformin BID (due to renal function) but continue Glipizide
Acute Kidney Injury - IMPROVING
-Likely related to vancomycin and zosyn which are not being given anymore
-Initial Cr on admission was 0.5---->2.3---->2.1---->1.7
-Expected to continue to improve
-Recheck BMP in the morning
-Consulted nephrology, recommendations appreciated
DVT Prophylaxis: Lovenox
Code Status: Full Code
Anticipated Discharge: > 48 hours
Subjective/Interval History
-
Date of Service: October 03, 2023
Patient was seen and examined. He denied any new symptoms or complaints, except for some mild pain in left toe where he had the procedure done.
Objective Data
-
Labs:
Laboratory Results
10/03/23 10/03/23
08:20 08:21
WBC 11.5 H
Hgb 12.7 L
Hct 38.0 L
Plt Count 334
Sodium 136
Potassium 4.5
Chloride 106
Carbon Dioxide 23
BUN 34 H
Creatinine 1.7 H
Glucose 166 H
Calcium 8.7
Vital Signs:
Vital Signs
Temp Pulse Resp BP Pulse Ox
98.3 F 67 16 145/77 98
10/03/23 15:00 10/03/23 15:00 10/03/23 15:00 10/03/23 15:00 10/03/23 15:00
I&O
10/02/23 10/03/23 10/04/23
06:59 06:59 06:59
Intake Total 1140 / 1140 1400 / 1400 1100 / 1100
Output Total 1150 / 1150 1500 / 1500
Balance 1140 / 1140 250 / 250 -400 / -400
[2023-10-03 19:25] VITALS: BP 158/79
[2023-10-03 21:19] LABS: Glucose - Point of Care 170 mg/dl (70-99)
[2023-10-03 23:15] VITALS: BP 136/80
[2023-10-04 03:21] VITALS: BP 141/87
[2023-10-04] MEDS: NSS 1000 IV (05:51)
[2023-10-04 07:00] VITALS: BP 156/89
[2023-10-04 07:59] LABS: Glucose - Point of Care 147 mg/dl (70-99)
[2023-10-04] MEDS: NOVOLOG FLEXPEN-LOW RESISTANCE SC ×2 (08:10→12:17)
[2023-10-04] MEDS: GLUCOTROL 5 MG PO ×2 (08:11→17:40)
[2023-10-04] MEDS: GLUCOTROL 2.5 MG PO (08:11)
[2023-10-04 08:20] LABS: % Basophils 0.7 % (0-2); % Eosinophils 3.3 % (0-6); % Immature Granulocytes 0.6 % (0-0.5); % Lymphocytes 22.9 % (20.5-51.1); % Monocytes 9.3 % (1.7-9.3); % Neutrophils 63.2 % (42.2-75.2); Absolute Basophils 0.1 10^3/uL (0-0.2); Absolute Eosinophils 0.3 10^3/uL (0-0.7); Absolute Immature Granulocytes 0.1 10^3/uL (0-0.05); Absolute Lymphocytes 2.4 10^3/uL (1.2-3.4); Absolute Neutrophils 6.6 10^3/uL (1.4-6.5); Hematocrit 37.4 % (39.0-52.0); Hemoglobin 12.5 g/dL (13.0-18.0); Mean Corp Hgb Conc. 33.4 g/dL (33.0-37.0); Mean Corpuscular Hgb 28.6 pg (27.0-31.0); Mean Corpuscular Volume 85.6 fL (80.0-94.0); Mean Platelet Volume 9.9 fL (7.4-10.4); Nucleated Red Blood Cells % 0 % (-); Platelet Count 352 10^3/uL (130-400); Red Blood Cell Count 4.37 10^6/uL (4.70-6.10); Red Cell Dist. Width 11.9 % (11.5-14.5); White Blood Cell Count 10.4 10^3/uL (4.8-10.8)
[2023-10-04 08:55] LABS: Blood Urea Nitrogen 33 mg/dl (9-20); Calcium 8.9 mg/dl (8.4-10.2); Carbon Dioxide 20 mmol/L (22-30); Chloride 107 mmol/L (98-107); Estimated Creatinine Clearance 60 ml/min; Glucose 147 mg/dl (70-99); Potassium 4.6 mmol/L (3.5-5.1); Sodium 137 mmol/L (135-145); eGFR 53.15
--- NOTE | 2023-10-04 09:34 | W.PN.ID1 ---
Date of Service
Date of Service: October 04, 2023
Today's Communication
Awaiting bone cx.
Continue ceftriaxone.
Assessment / Plan
# Diabetic left great toe infection with purulent cellulitis, probable osteo
# Leukocytosis - resolved
# ALFRED - improving
# DM2 uncontrolled A1c 12.4
- Podiatry - s/p bedside debridement + pus cx: viridans strep
-Arterial duplex: suggestive of infrapopliteal and small vessel disease
Per Vascular, hold off arteriogram due to ALFRED
- MRI: reactive BM edema vs osteo of distal phalanx
Plantar subcutaneous soft tissues adjacent to the first metatarsophalangeal joint, and this finding suggests a small complex abscess or complex phlegmon ->
Small amount of pus expressed at the site
-10/01 s/p OR I+D , bone biopsy. Wound noted to track to bone; bone viable.
- Await bone cx and path.
-Continue ceftriaxone.
-Follow wbc and renal function.
Chief Complaint
-: Cellulitis
Subjective / Review of Systems
No complaints.
Vital Signs / Physical Exam
Vital Signs
Vital Signs
Temp Pulse Resp BP Pulse Ox
98.1 F 54 18 156/89 95
10/04/23 07:00 10/04/23 07:00 10/04/23 07:00 10/04/23 07:00 10/04/23 07:00
Physical Exam
Constitutional: No Acute Distress
Gastrointestinal: Soft, Non Tender and Non Distended
Objective Data
Lab Data
Lab Results
10/04/23 07:02
10/04/23 07:02
Estimated Creat Clear 60 ml/min 10/04/23 07:02
Lactic Acid 1.9 mmol/L (0.7-2.0) 09/28/23 11:05
Total Bilirubin 1.3 mg/dl (0.2-1.3) 09/28/23 09:50
AST 21 U/L (17-59) 09/28/23 09:50
ALT 25 U/L (0-50) 09/28/23 09:50
Alkaline Phosphatase 140 U/L (38-126) H 09/28/23 09:50
C-Reactive Protein Cancelled 09/28/23 14:17
Most recent labs reviewed.
Micro Results:
09/28/23 11:57 Blood Culture - Final
Blood/Venous No Growth - Final Report
10/02/23 16:43 Tissue Culture - Preliminary
Toe Gram Stain - Preliminary
09/28/23 11:05 Blood Culture - Final
Blood/Venous No Growth - Final Report
09/28/23 11:57 Wound Culture - Final
Abscess Viridans Streptococcus Group
Gram Stain - Final
09/29/23 MRI LLE wo and w contrast: Within the plantar soft tissues adjacent to the distal phalanx of the great toe, there is patchy enhancing intermediate T1-weighted signal suggesting cellulitis/inflammation, adjacent to foci of air seen on CT. No
evidence for a focal collection in this region. There is moderate patchy increased T2 and STIR signal and patchy enhancement of the marrow of the distal phalanx of the left great toe, without associated decreased T1-weighted signal. Main
differential considerations of reactive marrow edema and osteomyelitis. Please see above discussion, as MRI is highly sensitive for the detection of osteomyelitis but is less specific.
Small focus of central nonenhancement with peripheral enhancement within the plantar subcutaneous soft tissues adjacent to the first metatarsophalangeal joint, and this finding suggests a small complex abscess or complex phlegmon.
[2023-10-04 11:00] VITALS: BP 144/72
[2023-10-04 12:13] LABS: Glucose - Point of Care 146 mg/dl (70-99)
[2023-10-04 15:00] VITALS: BP 158/91
[2023-10-04 17:12] LABS: Glucose - Point of Care 158 mg/dl (70-99)
[2023-10-04] MEDS: STERILE WATER FOR INJECTION 20 ML IV (17:40)
[2023-10-04] MEDS: ROCEPHIN 2000 MG IV (17:40)
[2023-10-04] MEDS: LOVENOX 40 MG SC (17:40)
[2023-10-04] MEDS: NOVOLOG FLEXPEN-LOW RESISTANCE 1 UNITS SC (17:41)
[2023-10-04] MEDS: NSS IV (17:44)
--- NOTE | 2023-10-04 18:11 | W.PN.HOSP.TC ---
Today's Communication/Plan
-
Continue IV Antibiotics as per ID
Await bone culture and path
Cr gradually improving
Assessment / Plan
Assessment / Plan
Physical Exam
General: No Apparent Distress and Conversant
HEENT: Normocephalic and Moist mucous membranes
Respiratory: Clear
Cardiac: S1/S2 and Regular Rhythm
GI: Soft, Non Tender and Normal Bowel Sounds
Musculoskeletal: No Cyanosis, No Edema and Other (Left great toe with scabs and dark-colored area erythema and warmth, mildly tender on palpation.)
Skin: Warm
Neuro: Awake, Alert and AO x 3
Psych: Calm and Intact Judgment/Insight
Assessment/Plan
Left Great Toe Cellulitis, Soft Tissue Infection, probable osteo
Purulent Drainage from Left Big Toe Wound
-CRP elevated
-MRI report noted: edema vs. osteo.
-Status post Vancomycin, status post Zosyn
-Continue Ceftriaxone
-Await bone culture and path
-Consulted ID, Podiatry and Surgery, recommendations appreciated
-Podiatry: s/p bedside debridement + pus culture: viridans strep
-Arterial duplex studies: suggested infrapopliteal and small vessel disease
-HOWEVER, hold off on arteriogram at this time due to ALFERD
-Consulted vascular, recommendations appreciated
-Bone biopsy and I&D of left great toe by podiatry on 10/02/23
-Restricted WB on left heel to bathroom only.
Diabetes mellitus, uncontrolled
Hyperglycemia
-Now controlled inpatient
-Glucose was 480 on admission
-Improved in the ER after IV fluids were given
-Insulin Sliding Scale and accuchecks AC and HS
-Consulted Diabetes ODD TICKET CLERK, recommendations appreciated: hold 1000 mg metformin BID (due to renal function) but continue Glipizide
Acute Kidney Injury - IMPROVING
-Likely related to vancomycin and zosyn which are not being given anymore
-Initial Cr on admission was 0.5---->2.3---->2.1---->1.7----->1.6
-Expected to continue to improve
-Recheck BMP in the morning
-Consulted nephrology, recommendations appreciated
DVT Prophylaxis: Lovenox
Code Status: Full Code
Anticipated Discharge: 24 - 48 hours
Subjective/Interval History
-
Date of Service: October 04, 2023
Patient was seen and examined. He denied pain or any other symptoms or complaints.
Objective Data
-
Labs:
Laboratory Results
10/04/23
07:02
WBC 10.4
Hgb 12.5 L
Hct 37.4 L
Plt Count 352
Sodium 137
Potassium 4.6
Chloride 107
Carbon Dioxide 20 L
BUN 33 H
Creatinine 1.6 H
Glucose 147 H
Calcium 8.9
Vital Signs:
Vital Signs
Temp Pulse Resp BP Pulse Ox
98.8 F 65 18 158/91 97
10/04/23 15:00 10/04/23 15:00 10/04/23 15:00 10/04/23 15:00 10/04/23 15:00
I&O
10/03/23 10/04/23 10/05/23
06:59 06:59 06:59
Intake Total 1400 / 1400 2540 / 2540
Output Total 1150 / 1150 4270 / 4270
Balance 250 / 250 -1730 / -1730
[2023-10-04 20:45] VITALS: BP 162/84
[2023-10-04 21:35] LABS: Glucose - Point of Care 177 mg/dl (70-99)
[2023-10-04 23:23] VITALS: BP 162/90
[2023-10-05] MEDS: NSS 1000 IV (00:54)
[2023-10-05] MEDS: NSS IV (05:26)
[2023-10-05 05:36] LABS: % Basophils 0.6 % (0-2); % Eosinophils 5.7 % (0-6); % Immature Granulocytes 0.7 % (0-0.5); % Lymphocytes 24.5 % (20.5-51.1); % Monocytes 10.1 % (1.7-9.3); % Neutrophils 58.4 % (42.2-75.2); Absolute Basophils 0.1 10^3/uL (0-0.2); Absolute Eosinophils 0.6 10^3/uL (0-0.7); Absolute Immature Granulocytes 0.1 10^3/uL (0-0.05); Absolute Lymphocytes 2.5 10^3/uL (1.2-3.4); Absolute Neutrophils 5.8 10^3/uL (1.4-6.5); Hematocrit 36.8 % (39.0-52.0); Hemoglobin 12.4 g/dL (13.0-18.0); Mean Corp Hgb Conc. 33.7 g/dL (33.0-37.0); Mean Corpuscular Hgb 29.3 pg (27.0-31.0); Mean Platelet Volume 9.7 fL (7.4-10.4); Nucleated Red Blood Cells % 0 % (-); Platelet Count 329 10^3/uL (130-400); Red Blood Cell Count 4.23 10^6/uL (4.70-6.10); Red Cell Dist. Width 11.9 % (11.5-14.5)
[2023-10-05 06:14] LABS: Blood Urea Nitrogen 32 mg/dl (9-20); Carbon Dioxide 22 mmol/L (22-30); Chloride 109 mmol/L (98-107); Estimated Creatinine Clearance 63 ml/min; Glucose 168 mg/dl (70-99); Potassium 4.5 mmol/L (3.5-5.1); Sodium 139 mmol/L (135-145); eGFR 57.43
[2023-10-05 07:00] VITALS: BP 148/84
[2023-10-05 07:37] LABS: Glucose - Point of Care 139 mg/dl (70-99)
[2023-10-05] MEDS: NOVOLOG FLEXPEN-LOW RESISTANCE SC ×2 (07:40→16:42)
[2023-10-05] MEDS: GLUCOTROL 2.5 MG PO (07:40)
[2023-10-05] MEDS: GLUCOTROL 5 MG PO ×2 (07:41→17:59)
--- NOTE | 2023-10-05 08:10 | W.PN.HOSP.TC ---
Today's Communication/Plan
-
see A/P
Assessment / Plan
Assessment / Plan
A/P:
# Left Great Toe cellulitis with purulent Drainage POA, with probable osteo
s/p Vancomycin/Zosyn, now on Ceftriaxone
s/p I & D, debridement and bone biopsy of left great toe by podiatry
Initial wound Cx from 09/27 with viridans strep
Subsequent tissue culture 10/01 with Strep species
Follow Bone biopsy, I&D results from 10/02/23
Arterial duplex studies suggested infrapopliteal and small vessel disease
Consulted vascular, hold off on arteriogram at this time due to ALFRED. Pt can follow up outpt
Restricted WB on left heel to bathroom only.
# Acute Kidney Injury, likely related to vancomycin and zosyn, improving
SCr on admission was 0.5, peaked at 2.3, today at 1.5
Follow BMP
Nephrology has been consulted
# Diabetes mellitus, uncontrolled
Cont insulin Sliding Scale and accuchecks AC and HS
Consulted Diabetes STUNTMAN, recommendations appreciated: hold 1000 mg metformin BID (due to renal function) but continue Glipizide
DVT Prophylaxis: Lovenox SQ
Code Status: Full Code
Anticipated Discharge: 24 - 48 hours
Subjective/Interval History
-
Date of Service: October 05, 2023
Objective Data
-
Labs:
Laboratory Results
10/05/23
05:23
WBC 10.0
Hgb 12.4 L
Hct 36.8 L
Plt Count 329
Sodium 139
Potassium 4.5
Chloride 109 H
Carbon Dioxide 22
BUN 32 H
Creatinine 1.5 H
Glucose 168 H
Calcium 9.0
Vital Signs:
Vital Signs
Temp Pulse Resp BP Pulse Ox
36.9 C 61 18 148/84 94
10/05/23 07:00 10/05/23 07:00 10/05/23 07:00 10/05/23 07:00 10/05/23 07:00
I&O
10/04/23 10/05/23 10/06/23
06:59 06:59 06:59
Intake Total 2540 / 2540 2640 / 2640
Output Total 4270 / 4270 1974
Balance -1730 / -1730 665 / 665
Review of Systems
-
All other systems: Reviewed and negative
Physical Exam
-
General: Well Developed, Well Nourished, No Apparent Distress, Comfortable and Conversant; Negative Respiratory Distress
HEENT: Normocephalic, Atraumatic, Nose Appears Normal and Ears Appear Normal; Negative Oxygen
Respiratory: Clear to Auscultation and Non Labored Respirations; Negative Accessory Resp Muscle Use
Cardiac: Regular Rhythm and S1/S2
GI: Soft, Nontender, Nondistended and Normal Bowel Sounds
Skin: Warm, Dry and Other (L great toe in wound dressing)
Neuro: Awake, Alert and Oriented
Psych: Calm and Intact Judgement/Insight
Data Reviewed
-
MRI: Report Reviewed by me
Labs: Labs Reviewed by me
--- NOTE | 2023-10-05 08:52 | PN.DE.MGMTRT ---
Insulin Management
- -
10/02/2023: Diabetes Management Consult F/U:
Patient admitted 09/27 with R great toe pain and purulent drainage for 2 to 3 days.
PMH T2DM, A1C on admission 12.4%, cr .6, eGFr >60.
Patient stated he was taking metformin 500 mg BID which he got in [place]. 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 I asked if he could afford $20.00 per month for additional medication, he said he could. He also stated [facility]. Diet
decreased from 2200 to 1800 ( patient is 5'6').
Patient is awake, A/O x3, able to communicate and participate in discussion regarding diabetes.
Metformin remains on hold due to ALFRED improving, Cr 2.3-->1.5 today.
Glucose stable w/o elevations, FBG 168 this Am. Premeal range 136 to 158
Will make no changes to current regimen: Glipizide 7.5 mg in AM and 5 mg in PM.
Will reduce AM dose to 5mg once able to take Metformin.
Had a lengthy d/w pt on 10/01 regarding dietary choices at home and need to adhere to a diabetic diet. Emphasized exercise and encouraged him to increase his physical activity and to lose weight. Also discussed medications and cost since he has no
insurance. Instructed pt to fill his meds at [facility] pharmacy to guarantee low cost coverage of MFM and Glipizide, which pt states he can afford.
Diabetes History
- -
Type of Diabetes: 2
Pre-Admission Diabetes Regimen
10/04/23 10/05/23
07:02 05:23
Creatinine 1.6 H 1.5 H
Lab Results
Hemoglobin A1c 12.4 % (4.0-5.6) H 09/28/23 09:50
Insulin Pump Settings
IP Diabetes Regimen
10/04/23 10/04/23 10/04/23
07:02 12:12 17:10
Glucose 147 H
POC Glucose 146 H 158 H
10/04/23 10/05/23 10/05/23
21:34 05:23 07:35
Glucose 168 H
POC Glucose 177 H 139 H
Meal type: Lunch
Meal type: Breakfast
Amount consumed: 100%
Amount consumed: 100%
Patient Education
--- NOTE | 2023-10-05 09:03 | W.PN.POD ---
Today's Communication
Today's Communication
Surgical wound improved but deep, central defect remains.
Assessment / Plan
-
Assessment:
Infected diabetic wound, osteomyelitis of the left great toe.
S/P three days I&D, debridement and bone biopsy, left great toe.
Uncontrolled Diabetes Mellitus with diabetic peripheral neuropathy
Hyperlipidemia
ALFRED-likely due to Vanco use-resolving.
Plan:
Bone culture follows apparently follows wound culture result.
Surgical wound improved but deep, central defect remains.
Consider course of home IV antibiotics vs partial toe amputation.
Request vascular to revisit angiogram in anticipation of surgery.
Local wound care.
Restricted WB on left heel to bathroom only.
Subjective
Chief Complaint
Left great toe infection/osteomyelitis
Subjective
Resting comfortably. Denies discomfort in the toe. No fevers, chills or sweats.
Objective
Temp Pulse Resp BP Pulse Ox
98.4 F 61 18 148/84 94
10/05/23 07:00 10/05/23 07:00 10/05/23 07:00 10/05/23 07:00 10/05/23 07:00
10/05/23 05:23
10/05/23 05:23
Vital Signs and Lab results were reviewed.
WBC: 10.0
DP pulses, left +1/4, right non-palpable. PT pulse left 0/4, right 1/4.
Skin is warm to touch, CFT to digits 1+ seconds, Diminished digital hair, bilaterally.
Mild edema only of the left great toe
No cellulitis, necrosis, malodor noted. Serous discharge. 75% of surgical wound completely filled in with the exception of the central 1cm defect, probing deeply around bone.
-09/28/23 XRAYS, Left foot: There is no clear evidence of cortical destruction or osteomyelitis of the distal phalanx of the great toe.
-09/28/33 MRI, left foot: Within the plantar soft tissues adjacent to the distal phalanx of the great toe, there is patchy enhancing intermediate T1-weighted signal suggesting cellulitis/inflammation, adjacent to foci of air seen on CT. No evidence
for a focal collection in this region.
There is moderate patchy increased T2 and STIR signal and patchy enhancement of the marrow of the distal phalanx of the left great toe, without associated decreased T1-weighted signal. Main differential considerations of reactive marrow edema and
osteomyelitis.
-10/01/23 Noninvasive arterial imaging studies: ABIs not obtainable secondary to noncompressible vessels. Right-sided TBI within normal limits. Left side TBI 0.52. (Absolute toe pressure 75 mmHg). Multiphasic waveforms from common femoral
through popliteal arteries bilaterally. Left-sided multiphasic posterior tibial waveforms, monophasic dorsalis pedis. Likely sufficient perfusion for wound healing.
09/28/23 Wound culture: Viridans Strep Group-Final
10/02/23 Bone culture: Streptococcus species-Final
10/02/23 POST-OP XRAYS: no bony destructive changes.
--- NOTE | 2023-10-05 10:04 | W.PN.ID1 ---
Date of Service
Date of Service: October 05, 2023
Today's Communication
- Pt without insurance. At time of discharge, can transition to levofloxacin 750mg po daily through 11/09/23. (can use [employer] discount card)
Assessment / Plan
# Diabetic left great toe infection with purulent cellulitis, early osteomyeltiis
# Leukocytosis - resolved
# ALFRED - improving
# DM2 uncontrolled A1c 12.4
- Podiatry - s/p bedside debridement + pus cx: viridans strep
-Arterial duplex: suggestive of infrapopliteal and small vessel disease
Per Vascular, hold off arteriogram due to ALFRED
- MRI: reactive BM edema vs osteo of distal phalanx
Plantar subcutaneous soft tissues adjacent to the first metatarsophalangeal joint, and this finding suggests a small complex abscess or complex phlegmon ->
Small amount of pus expressed at the site
-10/01 s/p OR I+D , bone biopsy. Wound noted to track to bone; bone viable.
- bone cx + Streptococcus. Path pending
-Continue ceftriaxone (d7 abx)
- Pt without insurance. At time of discharge, can transition to levofloxacin 750mg po daily through 11/09/23. (can use [facility] discount card)
Levofloxacin has good bone penetration and bioavailability. Discussed potential side effects including C. diff., tendinitis associated with levofloxacin.
-Follow wbc and renal function.
Chief Complaint
-: Cellulitis
Subjective / Review of Systems
No complaints today.
Vital Signs / Physical Exam
Vital Signs
Vital Signs
Temp Pulse Resp BP Pulse Ox
98.4 F 61 18 148/84 94
10/05/23 07:00 10/05/23 07:00 10/05/23 07:00 10/05/23 07:00 10/05/23 07:00
Physical Exam
Constitutional: No Acute Distress
Pulmonary: Clear
Gastrointestinal: Soft, Non Tender, Non Distended and Normal Bowel Sounds
Genito-Urinary: Negative CVA Tenderness
Wound: Other (Foot just examined by podiatry)
Neurological: AO x 3
Objective Data
Lab Data
Lab Results
10/05/23 05:23
10/05/23 05:23
Estimated Creat Clear 63 ml/min 10/05/23 05:23
Lactic Acid 1.9 mmol/L (0.7-2.0) 09/28/23 11:05
Total Bilirubin 1.3 mg/dl (0.2-1.3) 09/28/23 09:50
AST 21 U/L (17-59) 09/28/23 09:50
ALT 25 U/L (0-50) 09/28/23 09:50
Alkaline Phosphatase 140 U/L (38-126) H 09/28/23 09:50
C-Reactive Protein Cancelled 09/28/23 14:17
Most recent labs reviewed.
Micro Results:
10/02/23 16:43 Tissue Culture - Final
Toe Streptococcus species
Gram Stain - Final
09/28/23 11:57 Blood Culture - Final
Blood/Venous No Growth - Final Report
09/28/23 11:05 Blood Culture - Final
Blood/Venous No Growth - Final Report
09/28/23 11:57 Wound Culture - Final
Abscess Viridans Streptococcus Group
Gram Stain - Final
09/29/23 MRI LLE wo and w contrast: Within the plantar soft tissues adjacent to the distal phalanx of the great toe, there is patchy enhancing intermediate T1-weighted signal suggesting cellulitis/inflammation, adjacent to foci of air seen on CT. No
evidence for a focal collection in this region. There is moderate patchy increased T2 and STIR signal and patchy enhancement of the marrow of the distal phalanx of the left great toe, without associated decreased T1-weighted signal. Main
differential considerations of reactive marrow edema and osteomyelitis. Please see above discussion, as MRI is highly sensitive for the detection of osteomyelitis but is less specific.
Small focus of central nonenhancement with peripheral enhancement within the plantar subcutaneous soft tissues adjacent to the first metatarsophalangeal joint, and this finding suggests a small complex abscess or complex phlegmon.
Care Review
Plan reviewed with: Physician (Dr. Camilo)
[2023-10-05 10:35] VITALS: BP 154/89; PULSE 67; O2SAT 100
--- NOTE | 2023-10-05 10:43 | CM ---
Case manangement following for d/c planning
Pt does not have insurance at this time
Given info on [facility] and how to obtain card for prescriptions
Pt receptive to information
CM will cont to follow for d/c needs
Plan - anticipate home no needs
--- NOTE | 2023-10-05 10:46 | PTOTSP ---
pt currently requires no assistance with simple ADLs, functional transfers, ambulation. educated pt on donning and doffing wedge shoe, pt demonstrated understanding. no acute OT needs identified at this time, will sign off.
[2023-10-05 12:27] LABS: Glucose - Point of Care 160 mg/dl (70-99)
[2023-10-05] MEDS: NOVOLOG FLEXPEN-LOW RESISTANCE 1 UNITS SC (13:11)
[2023-10-05 15:00] VITALS: BP 172/88
[2023-10-05 16:40] LABS: Glucose - Point of Care 128 mg/dl (70-99)
[2023-10-05] MEDS: LOVENOX 40 MG SC (17:59)
[2023-10-05] MEDS: STERILE WATER FOR INJECTION 20 ML IV (18:00)
[2023-10-05] MEDS: ROCEPHIN 2000 MG IV (18:00)
[2023-10-05] MEDS: TYLENOL 650 MG PO (20:59)
[2023-10-05 23:42] LABS: Glucose - Point of Care 128 mg/dl (70-99)
[2023-10-05 23:45] VITALS: BP 145/89
[2023-10-06 06:53] LABS: Hematocrit 40.3 % (39.0-52.0); Hemoglobin 13.8 g/dL (13.0-18.0); Mean Corp Hgb Conc. 34.2 g/dL (33.0-37.0); Mean Corpuscular Hgb 29.4 pg (27.0-31.0); Mean Corpuscular Volume 85.9 fL (80.0-94.0); Mean Platelet Volume 9.5 fL (7.4-10.4); Platelet Count 442 10^3/uL (130-400); Red Blood Cell Count 4.69 10^6/uL (4.70-6.10)
[2023-10-06 07:18] VITALS: BP 145/86
[2023-10-06 07:23] LABS: Glucose - Point of Care 134 mg/dl (70-99)
[2023-10-06] MEDS: GLUCOTROL 2.5 MG PO (07:24)
[2023-10-06] MEDS: GLUCOTROL 5 MG PO (07:24)
[2023-10-06 07:43] LABS: Blood Urea Nitrogen 32 mg/dl (9-20); Calcium 9.7 mg/dl (8.4-10.2); Carbon Dioxide 22 mmol/L (22-30); Chloride 107 mmol/L (98-107); Estimated Creatinine Clearance 68 ml/min; Glucose 137 mg/dl (70-99); Magnesium 2.4 mg/dl (1.6-2.3); Potassium 4.9 mmol/L (3.5-5.1); Sodium 140 mmol/L (135-145); eGFR > 60.00
--- NOTE | 2023-10-06 07:51 | PN.DE.MGMTRT ---
Insulin Management
- -
10/06/2023: Diabetes Management Consult F/U:
Patient admitted 09/27 with R great toe pain and purulent drainage for 2 to 3 days.
PMH T2DM, A1C on admission 12.4%, cr .6, eGFr >60.
Patient stated he was taking metformin 500 mg BID which he got in [place]. 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 I asked if he could afford $20.00 per month for additional medication, he said he could. He also stated [facility]. Diet
decreased from 2200 to 1800 ( patient is 5'6').
Patient is awake, alert, oriented, anxious for discharge.
CR improved 1.4, eGFR > 60 today.
Glucose stable w/o elevations, fasting 134 this Am. Premeal range 128 to 160
Will resume metformin 1000 mg BID first dose this AM with Glipizide 5 mg in BID.
Discussed medications and cost since he has no insurance. Instructed pt to fill his meds at [facility] pharmacy to guarantee low cost coverage of metformin and Glipizide, which pt states he can afford.
Diabetes History
- -
Type of Diabetes: 2
Pre-Admission Diabetes Regimen
10/06/23
06:16
Creatinine 1.4 H
Lab Results
Hemoglobin A1c 12.4 % (4.0-5.6) H 09/28/23 09:50
Insulin Pump Settings
IP Diabetes Regimen
10/05/23 10/05/23 10/05/23
12:26 16:39 23:39
Glucose
POC Glucose 160 H 128 H 128 H
10/06/23 10/06/23
06:16 07:22
Glucose 137 H
POC Glucose 134 H
Patient Education
[2023-10-06] MEDS: NOVOLOG FLEXPEN-LOW RESISTANCE SC (07:59)
[2023-10-06] MEDS: GLUCOPHAGE PO (08:08)
[2023-10-06 08:16] LABS: Glucose - Point of Care 134 mg/dl (70-99)
--- NOTE | 2023-10-06 08:40 | W.PN.HOSP.TC ---
Addendum entered and electronically signed by Emily Bradshaw MD 10/06/23 14:01:
total DC time 35 min
Original Note:
Today's Communication/Plan
-
see A/P
Assessment / Plan
Assessment / Plan
A/P:
# Left Great Toe cellulitis with early osteomyelitis
s/p I&D, debridement and bone biopsy of left great toe by podiatry
Initial wound Cx from 09/27 with viridans strep
Subsequent tissue culture 10/01 with Strep species
Pending Bone biopsy path from 10/02/23
s/p Vancomycin/Zosyn, now on Ceftriaxone
ID recc to transition Abx to levofloxacin 750mg po daily through 11/09/23 (treat as osteo)
Of note, Arterial duplex studies suggested infrapopliteal and small vessel disease
vascular recc to hold off on arteriogram at this time due to ALFRED. Pt can follow up outpt
Restricted WB on left heel to bathroom only.
# Acute Kidney Injury, likely related to vancomycin and zosyn, improving
SCr on admission was 0.5, peaked at 2.3, today at 1.4
Follow BMP outpt with result to PCP
Nephrology was consulted and signed off
# Diabetes mellitus, uncontrolled
Cont insulin Sliding Scale and accuchecks AC and HS
With improved SCr, can resume metformin and continue Glipizide 5 mg BID.
DVT Prophylaxis: Lovenox SQ
Code Status: Full Code
DW RN
DW ID
Anticipated Discharge: Today
Subjective/Interval History
-
Date of Service: October 06, 2023
Objective Data
-
Labs:
Laboratory Results
10/06/23
06:16
WBC 11.0 H
Hgb 13.8
Hct 40.3
Plt Count 442 H D
Sodium 140
Potassium 4.9
Chloride 107
Carbon Dioxide 22
BUN 32 H
Creatinine 1.4 H
Glucose 137 H
Calcium 9.7
Vital Signs:
Vital Signs
Temp Pulse Resp BP Pulse Ox
36.7 C 61 20 145/86 96
10/06/23 07:18 10/06/23 07:18 10/06/23 07:18 10/06/23 07:18 10/06/23 07:18
I&O
10/05/23 10/06/23 10/07/23
06:59 06:59 06:59
Intake Total 2640 / 2640 720 / 720
Output Total 1974 350 / 350
Balance 665 / 665 370 / 370
Review of Systems
-
All other systems: Reviewed and negative
Physical Exam
-
General: Well Developed, Well Nourished, No Apparent Distress, Comfortable and Conversant; Negative Respiratory Distress
HEENT: Normocephalic, Atraumatic, Nose Appears Normal and Ears Appear Normal; Negative Oxygen
Respiratory: Clear to Auscultation and Non Labored Respirations; Negative Accessory Resp Muscle Use
Cardiac: Regular Rhythm and S1/S2
GI: Soft, Nontender, Nondistended and Normal Bowel Sounds
Skin: Warm, Dry and Other (L foot in wound dressing)
Neuro: Awake, Alert and Oriented
Psych: Calm and Intact Judgement/Insight
Data Reviewed
-
MRI: Report Reviewed by me
Labs: Labs Reviewed by me
--- NOTE | 2023-10-06 10:00 | WOUNDNOTE ---
ROXY RN NOTE: Asked to consult on patient for wound care needs upon discharge. Reviewed recent report from Burning Supervisor and wound care orders already put in. Updated discharge instructions, confirmed with Dr. Bradshaw that this typewriter assembly and parts inspector does not need to see
patient.
--- NOTE | 2023-10-06 10:03 | CM ---
contract administration manager following for d/c planning
Pt for d/c today
Daughter will be transporting home
Does not have a PCP - given info/pamphlet on the [facility]
Plan - d/c to home, no needs
[2023-10-06 11:12] VITALS: BP 149/93
--- NOTE | 2023-10-06 13:38 | W.DCSUMMARY ---
Discharge Summary
Discharge Data
Date of Admission: 09/28/23
Date of Discharge: 10/06/23
-
Pending Results: No
Hospital Course
Principal Diagnosis:
Left Great Toe cellulitis with early osteomyelitis
Acute Kidney Injury, likely related to vancomycin and zosyn, improving
Chronic Diagnoses:�
Diabetes mellitus, uncontrolled
Consultations:�
Infectious disease
Podiatry
Vascular surgery
Diabetes nurse practitioner
Nephrology
Procedures:�
Bedside I&D, debridement and bone biopsy of left great toe by podiatry 10/02/23
Clinical course:�
This is a 48-year-old male with past medical history as stated above, who presented with left big toe pain, redness and swelling.
Problem 1:
Left great toe cellulitis with early osteomyelitis.
He underwent bedside I&D, debridement and bone biopsy of the left great toe by podiatry on 10/02/23.
His initial wound culture from 09/27 grew viridans strep and the subsequent tissue culture from 10/01 grew Strep species.
He received vancomycin and Zosyn initially, which were changed to ceftriaxone due to ALFRED.
He was discharged with oral Levofloxacin 750mg daily through 11/09/23 (treat as osteo) per ID.
He can follow-up the bone biopsy pathology report outpatient with his PCP.
Problem 2:
Acute Kidney Injury, likely related to vancomycin and Zosyn, improving.
His serum creatinine on admission was at 0.5. It peaked at 2.3 and trended down to 1.4 on the day of discharge.
He can continue to follow-up BMP outpatient with result to his PCP.
Problem 3:
Diabetes mellitus, uncontrolled.
His A1c was at 12.4%.
Given his serum creatinine has improved, he can continue with metformin (discharged at 1000 mg BID) and Glipizide 5 mg BID.
As for the rest of his medical problems, they were stable during his hospital stay.
Discharge Plan
-
Patient Disposition: Home (Routine Discharge)
Discharge Diagnosis/Procedures: Left Great Toe cellulitis with early osteomyelitis; Acute Kidney Injury likely related to vancomycin and zosyn (improved); Uncontrolled diabetes mellitus
Condition: Fair
Diet: As tolerated, Low Fat, Low Cholesterol, Low Sodium and Diabetic, Carb Controlled
Activity: As tolerated
Additional Activity: Restricted Weight bearing on left heel to bathroom only.
Driving Restrictions: Not until seen by your Dr
Activity Restrictions/Additional Instructions:
Wound Care Instructions
L Great toe: clean with soap and water, apply Silvadene, dry gauze dressing daily
Follow up with [employer] [facility]
Referrals:
NONE,* [Family Provider] - in less than 1 week
Kelli Causey CRNP [Specified Professional Personl] - 10/23/23 10:45 am (Vascular follow up- wound check)
Additional Discharge Medication Instructions: Take Levofloxacin 750mg daily through 11/09/23 (treat as osteo bone infection)
For your uncontrolled diabetes, take metformin 1000 mg twice daily and Glipizide 5 mg twice daily.
Prescriptions:
New
metformin 1,000 mg Tablet
1,000 mg PO BID@0800,1700 Qty: 60 0RF
glipizide 5 mg Tablet
5 mg PO BID@0800,1700 Qty: 60 0RF
levofloxacin 750 mg tablet
750 mg PO DAILY 35 Days Qty: 35 0RF
Continued
Triglycerides Medication
1 tab PO DAILY
Patient Comments:
PATIENT COMES FROM [facility] AND BUY HIS MEDICATION THERE.
Discontinued
metformin 500 mg Tablet
500 mg PO BID
Discharge Orders:
Discharge Patient (As Directed); Ordered 10/06/23
Ordered By: Emily Bradshaw
Discharge Date and Time
Discharge Date/Time: 10/06/23 13:05
Print Language: BELARUSIAN
== END 2023-10-06 13:05 | disposition home or self-care (01) | DRG 571 ==
LOC: 3 WEST ACU 14:21
PROVIDERS: Physician Assistant; Student in an Organized Health Care Education/Training Program; ADMITTING PHYSICIAN Hospitalist; ATTENDING PHYSICIAN Internal Medicine; CONSULT PHYSICIAN Internal Medicine Infectious Disease; CONSULT PHYSICIAN Podiatrist Foot & Ankle Surgery; CONSULT PHYSICIAN Specialist; EMERGENCY PHYSICIAN Emergency Medicine; OTHER PHYSICIAN Surgery Vascular Surgery
PROC: 0QBR0ZX Excision of Left Toe Phalanx, Open Approach, Diagnostic (ICD-10-PCS; 2023-09-29)
PROC: 0JBR0ZZ Excision of Left Foot Subcutaneous Tissue and Fascia, Open Approach (ICD-10-PCS; 2023-09-29)
DX: L03.032 Cellulitis of left toe (principal); M86.9 Osteomyelitis, unspecified; N17.9 Acute kidney failure, unspecified; E11.42 Type 2 diabetes mellitus with diabetic polyneuropathy; E11.628 Type 2 diabetes mellitus with other skin complications; E11.65 Type 2 diabetes mellitus with hyperglycemia; E78.5 Hyperlipidemia, unspecified; E11.621 Type 2 diabetes mellitus with foot ulcer; E11.69 Type 2 diabetes mellitus with other specified complication; I10 Essential (primary) hypertension; T36.8X5A Adverse effect of other systemic antibiotics, initial encounter
CPT/HCPCS: 88304; 88311; 73620; 73630; 73700; 73720; 76770; 80048; 80053; 80202; 81003; 82010; 82570; 82962; 83036; 83605; 83735; 84300; 85025; 85027; 86140; 87040; 87070; 87077; 87176; 87205; 93922; 93925; 96361; 96365; 96366; 96367; 97161; 97165; 99285; A9575

== ENCOUNTER → 2023-11-26 10:39 | Outpatient (REF) | payer OTHER, SELFPAY ==
[2023-11-26 11:28] LABS: % Basophils 0.7 % (0-2); % Eosinophils 5.3 % (0-6); % Immature Granulocytes 1.1 % (0-0.5); % Lymphocytes 26.6 % (20.5-51.1); % Monocytes 7.4 % (1.7-9.3); % Neutrophils 58.9 % (42.2-75.2); Absolute Basophils 0.1 10^3/uL (0-0.2); Absolute Eosinophils 0.6 10^3/uL (0-0.7); Absolute Immature Granulocytes 0.1 10^3/uL (0-0.05); Absolute Lymphocytes 2.8 10^3/uL (1.2-3.4); Absolute Monocytes 0.8 10^3/uL (0.1-0.6); Absolute Neutrophils 6.2 10^3/uL (1.4-6.5); Hematocrit 38.9 % (39.0-52.0); Mean Corp Hgb Conc. 33.4 g/dL (33.0-37.0); Mean Corpuscular Hgb 28.6 pg (27.0-31.0); Mean Corpuscular Volume 85.5 fL (80.0-94.0); Mean Platelet Volume 9.9 fL (7.4-10.4); Nucleated Red Blood Cells % 0 % (-); Platelet Count 359 10^3/uL (130-400); Red Blood Cell Count 4.55 10^6/uL (4.70-6.10); Red Cell Dist. Width 12.2 % (11.5-14.5); White Blood Cell Count 10.4 10^3/uL (4.8-10.8)
[2023-11-26 11:59] LABS: ALT (SGPT) 26 U/L (0-50); AST (SGOT) 22 U/L (17-59); Albumin 4.4 g/dl (3.5-5.0); Alkaline Phosphatase 103 U/L (38-126); Blood Urea Nitrogen 29 mg/dl (9-20); Calcium 9.6 mg/dl (8.4-10.2); Carbon Dioxide 26 mmol/L (22-30); Chloride 102 mmol/L (98-107); Glucose 258 mg/dl (70-99); HDL Cholesterol 45 mg/dl; LDL Cholesterol, Calculated 154 mg/dl; Potassium 4.5 mmol/L (3.5-5.1); Sodium 138 mmol/L (135-145); Total Bilirubin 1.4 mg/dl (0.2-1.3); Total Cholesterol 269 mg/dl (50-199); Total Protein 7.5 g/dl (6.3-8.2); Triglyceride 354 mg/dl (10-149); Very Low Density Lipoprotein 70 mg/dl (0-30); eGFR > 60.00
[2023-11-26 12:11] LABS: Urine Albumin Negative (Neg - Trace); Urine Bilirubin Negative (Negative); Urine Character Clear (Clear); Urine Color Yellow; Urine Glucose 3+ (Negative); Urine Ketone Negative (Negative); Urine Leukocyte 1+ (Negative); Urine Nitrite Negative (Negative); Urine Occult Blood Negative (Negative); Urine Urobilinogen Negative (Neg - 1+)
[2023-11-26 12:14] LABS: Vitamin D, 25-OH*** 22.1 ng/mL (30-80)
[2023-11-26 12:28] LABS: TSH Reflex To Free T4 1.99 uIU/ml (0.47-4.68)
[2023-11-26 12:40] LABS: Urine Mucus Many
[2023-11-26 12:42] LABS: Urine Amorphous Seen; Urine Red Blood Cell 0-2 /HPF (0-2)
[2023-11-26 13:39] LABS: Glycohemoglobin (HgbA1c) 9.8 % (4.0-5.6)
== END ==
LOC: CLINIC 10:39
PROVIDERS: ATTENDING PHYSICIAN Nurse Practitioner Acute Care
DX: M86.9 Osteomyelitis, unspecified (principal); Z00.00 Encounter for general adult medical examination without abnormal findings
CPT/HCPCS: 36415; 73620; 80053; 80061; 81003; 81015; 82306; 83036; 84443; 85025

== ENCOUNTER → 2024-03-05 09:48 | Outpatient (REF) | payer OTHER, SELFPAY ==
[2024-03-05 12:28] LABS: ALT (SGPT) 33 U/L (0-50); AST (SGOT) 27 U/L (17-59); Albumin 4.3 g/dl (3.5-5.0); Alkaline Phosphatase 104 U/L (38-126); Blood Urea Nitrogen 24 mg/dl (9-20); Calcium 9.6 mg/dl (8.4-10.2); Carbon Dioxide 24 mmol/L (22-30); Chloride 101 mmol/L (98-107); Glucose 304 mg/dl (70-99); Potassium 4.5 mmol/L (3.5-5.1); Sodium 138 mmol/L (135-145); Total Bilirubin 1.3 mg/dl (0.2-1.3); eGFR > 60.00
== END ==
LOC: CLINIC 09:48
PROVIDERS: FAMILY PHYSICIAN Nurse Practitioner Adult Health
DX: R17 Unspecified jaundice (principal)
CPT/HCPCS: 36415; 80053

== ENCOUNTER → 2024-04-29 09:10 | Outpatient (REF) | payer OTHER, SELFPAY ==
[2024-04-29 12:05] LABS: Glycohemoglobin (HgbA1c) 11.8 % (4.0-5.6)
[2024-04-29 12:52] LABS: ALT (SGPT) 30 U/L (0-50); AST (SGOT) 22 U/L (17-59); Albumin 4.4 g/dl (3.5-5.0); Alkaline Phosphatase 121 U/L (38-126); Blood Urea Nitrogen 22 mg/dl (9-20); Calcium 9.5 mg/dl (8.4-10.2); Carbon Dioxide 24 mmol/L (22-30); Chloride 101 mmol/L (98-107); Glucose 278 mg/dl (70-99); HDL Cholesterol 44 mg/dl; LDL Cholesterol, Calculated 185 mg/dl; Potassium 4.6 mmol/L (3.5-5.1); Sodium 139 mmol/L (135-145); Total Cholesterol 295 mg/dl (50-199); Total Protein 7.4 g/dl (6.3-8.2); Triglyceride 330 mg/dl (10-149); Very Low Density Lipoprotein 66 mg/dl (0-30); eGFR > 60.00
[2024-04-29 13:00] LABS: Vitamin D, 25-OH*** 24.5 ng/mL (30-80)
== END ==
LOC: REG 09:10
PROVIDERS: ATTENDING PHYSICIAN Nurse Practitioner Adult Health
DX: E11.65 Type 2 diabetes mellitus with hyperglycemia (principal)
CPT/HCPCS: 36415; 80053; 80061; 82306; 83036

== ENCOUNTER → 2024-08-22 10:17 | Outpatient (REF) | payer OTHER, SELFPAY ==
[2024-08-22 11:30] LABS: ALT (SGPT) 56 U/L (0-50); AST (SGOT) 35 U/L (17-59); Albumin 3.8 g/dl (3.5-5.0); Alkaline Phosphatase 120 U/L (38-126); Blood Urea Nitrogen 20 mg/dl (9-20); Calcium 9.3 mg/dl (8.4-10.2); Carbon Dioxide 25 mmol/L (22-30); Chloride 102 mmol/L (98-107); Glucose 344 mg/dl (70-99); HDL Cholesterol 42 mg/dl; LDL Cholesterol, Calculated 188 mg/dl; Potassium 4.6 mmol/L (3.5-5.1); Sodium 135 mmol/L (135-145); Total Bilirubin 1.1 mg/dl (0.2-1.3); Total Cholesterol 307 mg/dl (50-199); Total Protein 6.9 g/dl (6.3-8.2); Triglyceride 388 mg/dl (10-149); Very Low Density Lipoprotein 77 mg/dl (0-30); eGFR > 60.00
[2024-08-22 11:43] LABS: Vitamin D, 25-OH*** 18.2 ng/mL (30-80)
[2024-08-22 12:38] LABS: Glycohemoglobin (HgbA1c) 13.3 % (4.0-5.6)
== END ==
LOC: REG 10:17
PROVIDERS: ATTENDING PHYSICIAN Nurse Practitioner Adult Health
DX: E11.65 Type 2 diabetes mellitus with hyperglycemia (principal); E78.2 Mixed hyperlipidemia; R79.89 Other specified abnormal findings of blood chemistry
CPT/HCPCS: 36415; 80053; 80061; 82306; 83036

== ENCOUNTER → 2024-11-26 10:57 | Outpatient (REF) | payer OTHER, SELFPAY ==
[2024-11-26 12:08] LABS: ALT (SGPT) 25 U/L (0-50); AST (SGOT) 19 U/L (17-59); Albumin 4.5 g/dl (3.5-5.0); Alkaline Phosphatase 112 U/L (38-126); Blood Urea Nitrogen 35 mg/dl (9-20); Calcium 9.7 mg/dl (8.4-10.2); Carbon Dioxide 24 mmol/L (22-30); Chloride 106 mmol/L (98-107); Glucose 231 mg/dl (70-99); HDL Cholesterol 52 mg/dl; LDL Cholesterol, Calculated 196 mg/dl; Potassium 4.5 mmol/L (3.5-5.1); Sodium 139 mmol/L (135-145); Total Bilirubin 1.7 mg/dl (0.2-1.3); Total Cholesterol 313 mg/dl (50-199); Total Protein 7.7 g/dl (6.3-8.2); Triglyceride 326 mg/dl (10-149); Very Low Density Lipoprotein 65 mg/dl (0-30); eGFR > 60.00
[2024-11-26 12:28] LABS: Vitamin D, 25-OH*** 19.8 ng/mL (30-80)
[2024-11-26 12:37] LABS: Glycohemoglobin (HgbA1c) 12.4 % (4.0-5.6)
[2024-11-26 12:44] LABS: Microalbumin, Random Urine 6.1 mg/dl (0.6-1.7); Microalbumin/creatinine Ratio 60.4 mg/g
== END ==
LOC: REG 10:57
PROVIDERS: ATTENDING PHYSICIAN Nurse Practitioner Adult Health
DX: E11.65 Type 2 diabetes mellitus with hyperglycemia (principal); E78.2 Mixed hyperlipidemia; R79.89 Other specified abnormal findings of blood chemistry
CPT/HCPCS: 80053; 80061; 82043; 82306; 82570; 83036

== ENCOUNTER 2024-12-12 15:18 | Inpatient (IN) | payer OTHER, SELFPAY ==
[2024-12-12 11:11] VITALS: BP 163/86
[2024-12-12 11:36] LABS: Hematocrit 38.3 % (39.0-52.0); Hemoglobin 13.0 g/dL (13.0-18.0); Mean Corp Hgb Conc. 33.9 g/dL (33.0-37.0); Mean Corpuscular Volume 86.7 fL (80.0-94.0); Nucleated Red Blood Cells % 0 % (-); Platelet Count 381 10^3/uL (130-400); Red Cell Dist. Width 11.9 % (11.5-14.5)
[2024-12-12 12:06] VITALS: BMI 32.0
[2024-12-12 12:09] LABS: ALT (SGPT) 21 U/L (0-50); AST (SGOT) 17 U/L (17-59); Albumin 3.6 g/dl (3.5-5.0); Alkaline Phosphatase 128 U/L (38-126); Blood Urea Nitrogen 24 mg/dl (9-20); Calcium 9.3 mg/dl (8.4-10.2); Carbon Dioxide 24 mmol/L (22-30); Chloride 106 mmol/L (98-107); Estimated Creatinine Clearance 119 ml/min; Glucose 335 mg/dl (70-99); Potassium 4.6 mmol/L (3.5-5.1); Sodium 136 mmol/L (135-145); Total Protein 6.6 g/dl (6.3-8.2); eGFR > 60.00
[2024-12-12 12:29] VITALS: BP 140/79
--- NOTE | 2024-12-12 14:09 | ED.GENMED ---
History of Present Illness
General
Chief Complaint: Skin Problem
Time Seen by Provider: 12/12/24 11:44
History of Present Illness
History of Present Illness:
49-year-old male with history of poorly controlled [id number] diabetes presents to the emergency department for evaluation of a wound to the left great toe with increased pain and redness. He is approximately 1 year out from having mild
osteomyelitis requiring debridement in this hospital. He has not been on any antibiotics recently. No fevers or chills
Past History
Past History
ED Past Medical History: NIDDM
Social History
Tobacco: Non-smoker
Alcohol: Occasional
Drug: None
Personal:
Living: with family
Employment: Employed
Review of Systems
Review of Systems
Allergies reviewed?: Yes
All Other Systems: ROS reviewed and negative except as documented in HPI and ROS
Phy Exam
Physical Exam
Physical Exam:
GEN: Well appearing, NAD, WDWN
HEENT: Oral mucosa moist, no scleral icterus
Cardiac: Regular rate
Lung: No respiratory distress, no tachypnea
MSK: Stage III-IV ulceration of the plantar aspect of the left great toe with necrotic tissue and malodor, does not probe to bony layer, diffuse swelling and redness of the left great toe extending to the midfoot
Skin: Good color, no pallor or jaundice, no rashes
Neuro: AO x3, moves all extremities freely
Psych: Calm, cooperative
Course
Orders/Labs/Results
Orders:
Orders
12/12/24 11:14
Straight cath- Treatment ONCE
12/12/24 11:28
C-Reactive Protein Urgent
Comment: ADD ON
Complete Blood Count/With Diff Urgent
Comprehensive Metabolic Panel Urgent
Erythrocyte Sed Rate Urgent
Comment: ADD ON
12/12/24 12:21
Add On- LAB Urgent
Tests Added?: ESR, CRP
CR Toe(s) Min 2 Vw Left Urgent
Comment:
Reason For Exam: diabetic ulcer
12/12/24 13:52
Wound Culture [Wound/Abscess/Other Culture] Urgent
VÍCTOR Source: Toe
Specimen Description:
Date Specimen was Collected: 12/12/24
Time Specimen was Collected: 13:50
Comment: L great toe
12/12/24 13:56
Vancomycin [Vancocin] 2,000 mg 0.9% Sodium Chloride 500 ml [Nss] 500 ml IV NOW
Abnormal Lab Results
12/12/24
11:28
RBC 4.42 L 10^6/uL
(4.70-6.10)
Hct 38.3 L %
(39.0-52.0)
Abs Immat Gran (auto) 0.1 H 10^3/uL
(0-0.05)
Immature Gran % 1.6 H %
(0-0.5)
ESR 58 H mm/hour
(0-20)
BUN 24 H mg/dl
(9-20)
Glucose 335 H mg/dl
(70-99)
Alkaline Phosphatase 128 H U/L
(38-126)
12/12/24 11:28
12/12/24 11:28
Vital Signs
Initial and Last Documented VS:
Initial Vital Signs
Temp Pulse Resp BP Pulse Ox
97.5 F 71 16 163/86 99
12/12/24 11:11 12/12/24 11:11 12/12/24 11:11 12/12/24 11:11 12/12/24 11:11
Last Documented Vital Signs
Temp Pulse Resp BP Pulse Ox
97.5 F 80 16 140/79 97
12/12/24 11:11 12/12/24 12:29 12/12/24 12:29 12/12/24 12:29 12/12/24 12:29
MDM/Problems Addressed
MDM/Problems Addressed:
Glucose moderately elevated, significant comorbidity given the poorly controlled diabetes, will admit for IV antibiotics and podiatry consultation
*Pulse Oximetry
SaO2: 97
Oxygen Mode of Delivery: Room air
Patient hypoxic: no
*Critical Care Note
Total Time (30-74mins, 75-104mins- exclusive of procedures): Not Applicable
ED Attending Note
-
Portions of this chart may have been created with voice recognition software.� Occasional wrong word or��sound alike� substitutions may have occurred due to the inherent limitations of voice recognition software.
Discharge Plan
Departure
Patient Disposition: Admit
Date of Disposition: 12/12/24
Time of Disposition: 14:11
Admit to: Med/Surg
Presentation/result/management discussed w/ accepting MD/DO: Hospitalist
Discharge Problem:
Diabetic foot ulcer, Cellulitis of foot, left
Prescriptions:
No Action
Triglycerides Medication
1 tab PO DAILY
Patient Comments:
PATIENT COMES FROM [place] AND BUY HIS MEDICATION THERE.
metformin 1,000 mg Tablet
1,000 mg PO BID@0800,1700 Qty: 60 0RF
glipizide 5 mg Tablet
5 mg PO BID@0800,1700 Qty: 60 0RF
levofloxacin 750 mg tablet
750 mg PO DAILY 35 Days Qty: 35 0RF
Referrals:
Femi Guzman MD [Family Provider, Family Practice]
Interventions
Interventions:
*Risk Screen - Suicide Last Done: 12/12/24 11:11
*General Assessment Last Done: 12/12/24 12:08
*Neglect/Abuse Screening Last Done: 12/12/24 11:11
*ED- Fall Risk Assessment Last Done: 12/12/24 12:08
*ED COVID-19 Vaccine History Last Done: 12/12/24 12:08
ED-Skin Assessment Last Done: 12/12/24 12:08
Discharge Date and Time
Print Language: SWEDISH
--- NOTE | 2024-12-12 14:16 | HPS.HSE ---
Family Physician
-
Family Physician: Femi Guzman
Chief Complaint
-
left great toe wound with increased pain and redness
History of Present Illness
Patient is a 49-year-old male with past medical history significant for DM II, hypertension and hyperlipidemia who presented to [facility] ED for evaluation of left great toe wound with increased pain and redness. Patient reports noticing wound on Thursday
and it has since gotten larger in size and has had increased pain. He denies any drainage at home, and does report pain has started to travel up foot into ankle and lower, medial calf. He denies fever, chills, cough, shortness of breath, chest pain,
nausea, vomiting, constipation, diarrhea or urinary symptoms.
Medical History
Past Medical History
Past Medical History: Reports Other
Additional Past Medical History:
DM II
hyperlipidemia
Past Surgical History: Reports None
Social History
Tobacco: Non-smoker
Alcohol: None
Drug: None
Personal: Other ( )
Living: With Roomate (with friends )
Employment: Employed
Family History
Family History: Not pertinent
Allergies / Home Medications
Allergies reflects when Allergies were last updated in [facility].
Home Medications with original date entered in [facility]
Allergy/Medication List:
Allergies
Allergy/AdvReac Type Severity Reaction Status Date / Time
No Known Allergies Allergy Verified 12/12/24 11:11
Home Medications
atorvastatin 40 mg tablet (Lipitor) 40 mg PO DAILY 12/12/24
cholecalciferol (vitamin D3) 50 mcg (2,000 unit) capsule (Vitamin D3) 50 mcg PO DAILY 12/12/24
empagliflozin 10 mg tablet (Jardiance) 10 mg PO DAILY 12/12/24
insulin glargine 100 unit/mL (3 mL) subcutaneous pen (Basaglar KwikPen U-100 Insulin) 34 unit SC HS 12/12/24
lisinopril 2.5 mg tablet 2.5 mg PO DAILY 12/12/24
sitagliptin phosphate 50 mg-metformin 1,000 mg tablet (Janumet) 1 tab PO BID 12/12/24
Review of Systems
-
History Source: Patient
Musculoskeletal: Reports Other (left great toe wound with increased pain and redness )
Physical Exam
Vital Signs
Vital Signs
Temp Pulse Resp BP Pulse Ox
97.5 F 80 16 140/79 97
12/12/24 11:11 12/12/24 12:29 12/12/24 12:29 12/12/24 12:29 12/12/24 14:09
Physical Exam
General: Well Developed, Well Nourished and Obese
HEENT: Moist mucous membranes and [place] Conjunctivae
Respiratory: Clear
Cardiac: S1/S2 and Regular Rhythm
Breast: Deferred by me
GI: Soft, Non Tender, Non Distended and Normal Bowel Sounds
Rectal: Deferred by Provider
Genito-urinary: Deferred by me
Musculoskeletal: No Clubbing, No Cyanosis and No Edema
Skin: Warm, IV/Catheter Site and Other (left great toe wound with erythema and necrotic tissue )
Neuro: Awake and AO x 3
Psych: Calm
Laboratory Results
-
12/12/24 11:28
12/12/24 11:28
Laboratory Results
Total Bilirubin 0.6 mg/dl (0.2-1.3) 12/12/24 11:28
AST 17 U/L (17-59) 12/12/24 11:28
ALT 21 U/L (0-50) 12/12/24 11:28
Alkaline Phosphatase 128 U/L (38-126) H 12/12/24 11:28
Data Reviewed
-
Lab Data: Labs Reviewed by me
Impression/Plan
-
IMPRESSION/PLAN:
#diabetic foot ulcer infection/cellulitis/osteo
Lt Foot x-ray: There is soft tissue swelling of the great toe with a questionable soft tissue defect medially. There is no radiographic evidence of acute osteomyelitis.
Wound Cx: pending
- Admit to med/surg
- Consult Podiatry
- IV Vanco and Zosyn
- pain regimen
#DM II
#hyperglycemia
A1c (11/26/2024) - 12.4
glucose 335
- AccuCheck AC & HS
- SSI
- continue Jardiance
- hold Janumet
- continue insulin glargine
#hyperlipidemia
- continue atorvastatin
#hypertension
- continue lisinopril
Code status: full code
DVT prophylaxis: heparin sq
--- NOTE | 2024-12-12 14:18 | EDRN ---
Pharmacy called for ordered vancomycin at this time. Pt to be admitted.
--- NOTE | 2024-12-12 14:32 | EDRN ---
Mary Anne Humphrey NP in room w/pt.
[2024-12-12 14:39] LABS: C-Reactive Protein 29.80 mg/L (0.0-10.00)
--- NOTE | 2024-12-12 14:43 | W.PN.UPDATE ---
Update Note
Progress Note Update
This note serves as an addendum to the H&P by airfield manager DANNY
Blanca Humphrey
HPI
49M non smoker HX poorly controlled T2DM seen at ER:
- for evaluation of a wound to the left great toe with increased pain and redness.
- approximately 1 year out from having mild osteomyelitis requiring debridement in this hospital.
- not been on any antibiotics recently.
- No fevers or chills
Relevant VS: afebrile
PE
Gen: not toxic
Neck: supple
Lungs: CTA
Cor: RRR
MS:
- Stage III-IV ulceration of the plantar aspect of the left great toe
- with necrotic tissue and malodor
- diffuse swelling and redness of the left great toe extending to the midfoot
Relevant Data
WCC 8.9
Elevated ESR 58
Cr 0.8, eGFR > 60
Toe XR pending report
ASSESSMENT & PLAN
Infected diabetic Lt. G toe ulcer suspect infected beyond SSTI
- Not septic ( afebrile, nl WCC) - will hold of any ABx for now in view of stable hemodynamic state
- Malodorous
- Manager Domestic consult and case discussed - we agree to start ABx given Diabetic foot prior to procedure
- cont IV vanco and add IV Zosyn
Poor controlled T2DM
- cont Jardiance
- cont. lantus
- Hold Metformin/ Sitagliptin
- add ISS low
Benign HTN
- cont. Lisinopril
DVT Px: SQH
Ful code
IP MS
[2024-12-12 14:55] VITALS: BP 156/88
[2024-12-12] MEDS: VANCOCIN 540 MG IV (15:00)
[2024-12-12] MEDS: NSS 1000 IV (15:00)
[2024-12-12] MEDS: NOVOLOG vial 10 UNITS SC (15:05)
--- NOTE | 2024-12-12 16:31 | EDRN ---
Attempted Blood Cultures but unsuccessful, asked another RN to attempt at this time.
[2024-12-12] MEDS: ZOSYN 50 IV ×2 (17:00→22:30)
--- NOTE | 2024-12-12 17:11 | EDRN ---
Set #1 of blood cultures drawn and sent
--- NOTE | 2024-12-12 17:30 | EDRN ---
Set #2 of blood cultures drawn and sent at this time.
[2024-12-12 17:32] VITALS: BP 116/66
--- NOTE | 2024-12-12 19:01 | W.CS.POD ---
Addendum entered and electronically signed by Carlos Lorenz DPM 12/12/24 19:19:
Surgical shoe To LT foot.
Can ambulate normally with heel wt bear to LT foot
Original Note:
Consult Summary - Podiatry
-
49 yo diabetic male with Left big toe plantar aspect ulcer, which is a chronic in nature, HE f/u at [facility] who has been treating him, He presented to the ER sent in by [facility] . HE has Lt foot swelling and erythema,
foul odor form LT big toe, He denies any fever, chills.
HE takes po meds and insulin for his diabetes , His HbA1c at 12.4, elevated blood glucose.
HE is in no acute distress, denies any calf pain,
Reviewed PMH, meds and allergies
Exam : B/L pedal pulses are palpable
Neuro : Diminished protective sensation
LT hallux plantar aspect with pink granular ulcer with some necrotic tissue in the center, no active purulence, not probe to bone
No crepitus or any signs of abscess noted
There is minimal local erythema noted , edematous LT foot
There are no osseous deformities noted
Xrays reviewed , no bony erosion noted
WBC count is WNL.
Reviewed Vascular studies form 10/01/2023, Noncompressible arteries bilaterally, suggestive of medial calcinosis and/or arterial noncompliance, which makes measured ankle-brachial indices unreliable. Toe brachial indices are considered more
reliable in this situation.
2. Left toe brachial index 0.52 (normal greater than 0.7). Findings suggestive of predominantly infrapopliteal and small vessel disease.
3. Right toe brachial index 0.81. Findings suggestive of predominantly infrapopliteal and small vessel disease.
A/P : LT foot cellulitis
LT hallux chronic non healing diabetic ulcer.
Diabetic neuropathy.
Poorly maintained blood sugars.
Plan ; IV abx
Will Start Santyl and dry gauze dressings to LT hallux
D/W patient in length about staying off his foot and risks with non healing and leading to bone infection and loosing the toe and foot
Pt understands the risks.
Will consult vascular surgery for evaluation.
No surgical intervention by podiatry
--- NOTE | 2024-12-12 19:39 | PHA.VAN.IN ---
Assessment
- Assessment
Renal Function: Appears similar to baseline (09/29/23 BASELINE SCR: 0.6)
Concomitant Antimicrobials: ZOSYN
- Previous Dosing Experience
Previous Regimen: 1500MG IV Q12H
Date of Regimen: 09/29/23
Provided Trough of: 10.6 PREDICTED
Provided AUC of: 481 PREDICTED
Patient's SCR is: Elevated compared to previous dosing experience (09/29/23 SCR = 0.6)
Patient's weight is: Elevated compared to previous dosing experience (09/29/23 WT = 88.6 KG)
AUC Dosing Plan
- Dosing Variables
Dosing Weight (kg): 89.8
Dosing CrCl (ml/min): 119
Vd coefficient (L/kg): 0.7
- Empiric Dosing
Initial / Loading Dose: 2GM
Maintenance Regimen: 1500MG IV Q12H
Estimated AUC (mcg*h/mL): 498
Estimated Peak (mcg*h/mL): 33.6
Estimated Trough (mcg/ml): 11.4
Estimated Half Life (H): 6.7
Pharmacokinetics Vancomycin I
- -
Patient Age: 49
Patient Sex: Male
Vancomycin Day #: 1
Indication: Bone And Joint (DIABETIC FOOT ULCER)
Requesting Provider: ASTRID
Height / Weight:
Height 5 ft 6 in
Actual Weight 89.8 kg
Pertinent Past Medical History: BMI ~ 32; DM
- Vital Signs / Lab Results
Temp Pulse Resp BP Pulse Ox
97.5 F 69 16 116/66 97
12/12/24 11:11 12/12/24 17:32 12/12/24 17:32 12/12/24 17:32 12/12/24 17:32
Lab Results - Hematology
12/12/24
11:28
WBC 8.9
Lab Results - Chemistry
12/12/24
11:28
BUN 24 H
Creatinine 0.8
Estimated Creat Clear 119
Albumin 3.6
Microbiology Results
12/12/24 13:52 Gram Stain - Preliminary
Toe
[2024-12-12] MEDS: HEPARIN SC (20:44)
[2024-12-12] MEDS: LANTUS 0.34 UNITS SC (22:30)
[2024-12-12 22:31] LABS: Glucose - Point of Care 204 mg/dl (70-99)
[2024-12-12 22:33] VITALS: BP 158/79
[2024-12-12] MEDS: HEPARIN 5000 UNITS SC (23:50)
[2024-12-12 23:51] VITALS: BP 142/88
[2024-12-13] MEDS: ZOSYN 50 IV ×4 (05:57→22:28)
[2024-12-13 06:01] VITALS: BP 119/82
[2024-12-13] MEDS: VANCOCIN 530 MG IV ×2 (06:02→17:57)
[2024-12-13 06:23] LABS: Hematocrit 35.1 % (39.0-52.0); Hemoglobin 12.2 g/dL (13.0-18.0); Mean Corp Hgb Conc. 34.8 g/dL (33.0-37.0); Mean Corpuscular Volume 84.8 fL (80.0-94.0); Platelet Count 372 10^3/uL (130-400); Red Cell Dist. Width 12.1 % (11.5-14.5)
[2024-12-13 06:36] LABS: Blood Urea Nitrogen 17 mg/dl (9-20); Calcium 8.7 mg/dl (8.4-10.2); Carbon Dioxide 21 mmol/L (22-30); Chloride 110 mmol/L (98-107); Estimated Creatinine Clearance > 125 ml/min; Glucose 188 mg/dl (70-99); Potassium 4.2 mmol/L (3.5-5.1); Sodium 136 mmol/L (135-145); eGFR > 60.00
[2024-12-13 07:00] VITALS: BP 115/61
--- NOTE | 2024-12-13 09:14 | PHA.VAN.FU ---
Vancomycin Assessment / Plan
- Assessment
Renal Function: Stable
WBC's are: WNL
In the past 24 hrs, patient has been: Afebrile
Concomitant Antimicrobials: piperacillin/tazobactam
- Dosing Plan
Continue: Vanc 1500mg Q12H
- Monitoring Plan
No level(s) ordered at this time: consider levels in next few days
- Follow Up
Pharmacy will continue to follow.
Vancomycin Follow UP
- -
Patient Age: 49
Patient Sex: Male
Vancomycin Day #: 2
Indication: Bone And Joint
Requesting Provider: Mary Anne Humphrey
Pertinent Antimicrobial Allergies:
NKDA
Height / Weight:
Height 5 ft 6 in
Actual Weight 89.8 kg
Pertinent Past Medical History: BMI ~ 32; DM 2
- Vital Signs / Lab Results
Temp Pulse Resp BP Pulse Ox
97.9 F 63 18 115/61 99
12/13/24 07:00 12/13/24 07:00 12/13/24 07:00 12/13/24 07:00 12/13/24 07:00
Lab Results - Hematology
12/12/24 12/13/24
11:28 05:57
WBC 8.9 10.5
Lab Results - Chemistry
12/12/24 12/13/24
11:28 05:57
BUN 24 H 17
Creatinine 0.8 0.7
Estimated Creat Clear 119 > 125
Albumin 3.6
Microbiology Results
12/12/24 13:52 Gram Stain - Preliminary
Toe
--- NOTE | 2024-12-13 11:20 | CM ---
"Initial assessment completed with patient who lives with friends in a 2 story home plus basement with B/B on 1st, 2 steps to enter. 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 No DME or in-home services. No HC-POA. PCP is Dr. Ana (~) at [facility] and Pharmacy is [facility] in [place]. Discharge POC: Anticipate home with no needs. May need HH RN depending on treatment in hospital. "
[2024-12-13] MEDS: SANTYL OINTMENT 1 APPLIC TOPICAL (12:01)
[2024-12-13] MEDS: FARXIGA 10 MG PO (12:01)
[2024-12-13] MEDS: LIPITOR 40 MG PO (12:01)
[2024-12-13] MEDS: HEPARIN 5000 UNITS SC ×3 (12:01→23:14)
[2024-12-13] MEDS: ZESTRIL 2.5 MG PO (12:01)
[2024-12-13 15:00] VITALS: BP 143/82
[2024-12-13 17:24] LABS: Glucose - Point of Care 139 mg/dl (70-99)
--- NOTE | 2024-12-13 17:53 | W.PN.HOSP.TC ---
Addendum entered and electronically signed by Donell Nicolas MD 12/14/24 10:26:
Attending Addendum-
I saw and evaluated the patient. I reviewed the resident�s note and agree with findings and plan as documented in the resident�s note. Sub: Patient feels mildly better. Less pain in Left foot. Denies fevers chills. Full 12 point ROS reviewed and
negative except as documented Exam: Vitals reviewed in chart GEN-NAD heart RRR lugs clear abd osft LE left great toe bandaged faint b/l DP B/L
Plan:
# Diabetic foot ulcer- infected left great toe
-Lt Foot x-ray: There is soft tissue swelling of the great toe with a questionable soft tissue defect medially. There is no radiographic evidence of acute osteomyelitis.
-Wound Cx: pend
-appreciate Podiatry input- surgical shoe to left foot with heel weight bear
-advised to c/s vasc
-cont Vanco and Zosyn for now
-pain regimen
#DM II
-poorly controlled HBa1c 11/2024-12.4!
-AccuCheck AC & HS
-SSI
-continue Jardiance
-hold Janumet
-continue insulin glargine 34 q hs
- will likely need mael time insulin
-ctm closely
#hyperlipidemia
- continue atorvastatin
#hypertension
- continue lisinopril
Code status: full code
DVT prophylaxis: heparin sq
ACP
Patient consented to discuss, was alone, time spent explanation of advance directives, changes in health status, patient�s health care wishes if the patient becomes unable to make health decisions, goals of care, code status, and prognosis- 16
minutes
Time spent coordinating care, review of plan of care with resident, personally reviewed previous records in EMR, med rec, labs, radiology, d/w nursing, family total time documented is exclusive of any additional time listed that was spent in advance
care planning discussion -�51 minutes
Original Note:
Today's Communication/Plan
-
Monitor clinical status. Continue treating infected diabetic foot ulcer with broad-spectrum antibiotics. Adjust as appropriate as cultures result.
Vascular surgery consulted for evaluation of necessity of surgical intervention.
Diabetes management team consulted to achieve tighter glucose control.
Assessment / Plan
Assessment / Plan
#Diabetic foot ulcer
�C/W vancomycin, piperacillin�tazobactam; adjust as necessary as cultures result
�AFVSS, no leukocytosis
�Blood culture: Pending
�Wound culture: Pending
�Podiatry consulted: No surgical intervention; collagenase and gauze dressings
�Vascular surgery consulted: Pending
#Diabetic neuropathy
#Type 2 diabetes
#Hyperglycemia
�Lantus 34 units at bedtime
�Aspart SSI
�C/W dapagliflozin
�Diabetes management consulted
#Hypertension
�C/W lisinopril
#Hyperlipidemia
�C/W atorvastatin
#Acute anemia
�Clinically stable
� Monitor H&H
� Transfuse Hgb < 7
DVT PPx: Heparin
Anticipated Discharge: 24 - 48 hours
Subjective/Interval History
-
Date of Service: December 13, 2024
Patient seen at the bedside Hospital day #2. Nursing orts SANDY. Patient states he is feeling 'pretty good. A little better'. Pain and sensation in the LLE is improving.
Objective Data
-
Labs:
Laboratory Results
12/13/24
05:57
WBC 10.5
Hgb 12.2 L
Hct 35.1 L
Plt Count 372
Sodium 136
Potassium 4.2
Chloride 110 H
Carbon Dioxide 21 L
BUN 17
Creatinine 0.7
Glucose 188 H
Calcium 8.7
Vital Signs:
Vital Signs
Temp Pulse Resp BP Pulse Ox
97.8 F 64 20 143/82 97
12/13/24 15:00 12/13/24 15:00 12/13/24 15:00 12/13/24 15:00 12/13/24 15:00
I&O
12/12/24 12/13/24 12/14/24
06:59 06:59 06:59
Intake Total 600 / 600
Balance 600 / 600
Review of Systems
-
History Source: Patient
Constitutional: Denies Fever, Fatigue or Chills
EENT: Reports No Symptoms Reported
Respiratory: Denies Cough or Trouble Breathing
Cardiac: Denies Chest Pain or Palpitations
Abdomen/GI: Denies Abdominal Pain, Nausea, Vomiting or Diarrhea
Genitourinary: Reports No Symptoms
Musculoskeletal: Reports Other (Reports no left great toe pain today)
Skin: Reports Other (Ulcer on left great toe)
Neuro: Denies Headache, Weakness or Numbness
Physical Exam
-
General: Well Developed, Well Nourished and No Apparent Distress
HEENT: Normocephalic and Atraumatic
Respiratory: Clear to Auscultation and Non Labored Respirations; Negative Wheezes or Crackles
Cardiac: Regular Rhythm and S1/S2; Negative Murmur, Rub or Gallop
GI: Soft, Nontender and Normal Bowel Sounds
Musculoskeletal: Negative Other (No edema or erythema in left lower extremity)
Skin: Warm, Dry and Other (Foul-smelling ulcer on plantar aspect of left great toe)
Neuro: AO x 3
Psych: Calm
[2024-12-13 21:51] LABS: Glucose - Point of Care 196 mg/dl (70-99)
[2024-12-13] MEDS: LANTUS 0.34 UNITS SC (22:28)
[2024-12-13 23:10] VITALS: BP 115/71
[2024-12-14] MEDS: ZOSYN 50 IV ×4 (04:45→22:41)
[2024-12-14] MEDS: VANCOCIN 530 MG IV ×2 (05:27→18:42)
--- NOTE | 2024-12-14 06:54 | W.PN.HOSP.TC ---
Addendum entered and electronically signed by Donell Nicolas MD 12/14/24 22:41:
Attending Addendum-
I saw and evaluated the patient. I reviewed the resident�s note and agree with findings and plan as documented in the resident�s note. Sub: Patient feels geratly improved. Denies pain in Left foot. Denies fevers chills. Full 12 point ROS reviewed
and negative except as documented Exam: Vitals reviewed in chart GEN-NAD heart RRR lugs clear abd soft LE left great toe bandaged faint b/l DP B/L
Plan:
# Diabetic foot ulcer- infected left great toe
-Lt Foot x-ray: soft tissue swelling of the great toe with a questionable soft tissue defect medially. There is no radiographic evidence of acute osteomyelitis.
-Wound Cx: poly microbial- staph, strep, diphtheroids, and enterococcus - sensi pend
-appreciate Podiatry input- surgical shoe to left foot with heel weight bear
-vasc input appreciated- check MARY
-cont Vanco and Zosyn day # 2 - transition to PO tomorrow hopefully
-pain regimen
#DM II
- last HBa1c 11/2024-12.4
- BB insulin added after that
- controlled
- AccuCheck AC & HS
- SSI
- continue Jardiance
- hold Janumet
- continue insulin glargine 34 q hs
- ctm closely
#Hyperlipidemia
- continue atorvastatin
#hypertension
- continue lisinopril
Code status: full code
DVT prophylaxis: heparin sq
Time spent coordinating care, review of plan of care with resident, personally reviewed records in EMR, med rec, consults, notes, labs, radiology, d/w nursing � 52 mins
Original Note:
Today's Communication/Plan
-
Continue with current antibiotic regimen, pending results of MRSA screen and sensitivities.
Vascular surgery indicates no intervention likely.
Monitor clinical status.
Assessment / Plan
Assessment / Plan
#Diabetic foot ulcer
�C/W vancomycin, piperacillin�tazobactam
�Consider de-escalating antibiotics based on wound culture sensitivities and MRSA screen (pending)
�AFVSS, no leukocytosis
�Blood culture 12/12: NGTD
�Wound culture 12/12: GBS (many), Staph aureus (rare), Enterococcus (rare), diphtheroids (many)
�Podiatry consulted: No surgical intervention; collagenase and gauze dressings
�Vascular surgery consulted: Likely no intervention necessary, ABIs/TBIs pending
#Diabetic neuropathy
#Type 2 diabetes
#Hyperglycemia
�Lantus 34 units at bedtime
�Aspart SSI
�C/W dapagliflozin
�Per diabetes management, resume metformin and sitagliptin
#Hypertension
�C/W lisinopril
#Hyperlipidemia
�C/W atorvastatin
#Acute anemia
�Clinically stable
� Monitor H&H
� Transfuse Hgb < 7
DVT PPx: Heparin
Anticipated Discharge: 24 - 48 hours
Subjective/Interval History
-
Date of Service: December 14, 2024
Patient seen at the bedside on hospital day #3. Nursing reports NAEO. HERNANDEZ. Patient states he is feeling 'a little better'. Reports no pain in his left toe/foot.
Objective Data
-
Labs:
Laboratory Results
12/14/24
06:00
WBC Pending
Hgb Pending
Hct Pending
Plt Count Pending
Sodium Pending
Potassium Pending
Chloride Pending
Carbon Dioxide Pending
BUN Pending
Creatinine Pending
Glucose Pending
Calcium Pending
Vital Signs:
Vital Signs
Temp Pulse Resp BP Pulse Ox
97.8 F 67 16 115/71 95
12/13/24 23:10 12/13/24 23:10 12/13/24 23:10 12/13/24 23:10 12/13/24 23:10
I&O
12/12/24 12/13/24 12/14/24
06:59 06:59 06:59
Intake Total 600 / 600
Balance 600 / 600
Review of Systems
-
History Source: Patient
Constitutional: Denies Fever, Fatigue or Chills
EENT: Reports No Symptoms Reported
Respiratory: Denies Cough or Trouble Breathing
Cardiac: Denies Chest Pain, Palpitations or Syncope
Abdomen/GI: Denies Abdominal Pain, Nausea, Vomiting or Diarrhea
Genitourinary: Reports No Symptoms
Musculoskeletal: Denies Edema
Skin: Reports Other (Denies pain in the left great toe or left foot)
Neuro: Reports Numbness (Slight numbness on the dorsal aspect of his left foot near the diabetic ulcer, no significant change from yesterday)
Physical Exam
-
General: Well Developed, Well Nourished, No Apparent Distress and Comfortable
HEENT: Normocephalic and Atraumatic
Respiratory: Clear to Auscultation and Non Labored Respirations; Negative Wheezes or Crackles
Cardiac: Regular Rhythm, S1/S2 and Other (Pulses intact in all 4 extremities); Negative Murmur, Rub or Gallop
GI: Soft, Nontender and Normal Bowel Sounds
Musculoskeletal: No Edema
Skin: Other (Ulcer on plantar aspect of left great toe; foul-smelling; no pustular drainage)
Neuro: AO x 3 and No Sensory Deficits (Mild numbness on plantar aspect of left foot)
Psych: Calm
[2024-12-14 07:15] VITALS: BP 144/90
[2024-12-14] MEDS: ZESTRIL 2.5 MG PO (07:31)
[2024-12-14] MEDS: FARXIGA 10 MG PO (07:31)
[2024-12-14] MEDS: SANTYL OINTMENT 1 APPLIC TOPICAL (07:31)
[2024-12-14] MEDS: LIPITOR 40 MG PO (07:31)
[2024-12-14] MEDS: HEPARIN 5000 UNITS SC ×3 (07:31→23:29)
--- NOTE | 2024-12-14 07:33 | W.PN.VS ---
Today's Communication / Plan
-
check janki and duplex
Assessment/Plan
-
chronic ulcer left great toe
- palpable DP pulse
- will check non invasive imaging BUT given exam and previous studies, there is likely nothing needed [facility]
- will defer to podiatry for wound management
Subjective Data
-
Date of Service: December 14, 2024
left great wound
been present for prolonged period of time
Objective Data
-
Vital Signs
Temp Pulse Resp BP Pulse Ox
97.8 F 67 16 115/71 95
12/13/24 23:10 12/13/24 23:10 12/13/24 23:10 12/13/24 23:10 12/13/24 23:10
Intake and Output
12/13/24 12/14/24 12/15/24
06:59 06:59 06:59
Intake Total 600 / 600
Balance 600 / 600
Intake:
IV piggybacks 600 / 600
Other:
Number of approximated MODERATE 2
amounts of urine
Calcium 8.7 mg/dl (8.4-10.2) 12/13/24 05:57
Total Bilirubin 0.6 mg/dl (0.2-1.3) 12/12/24 11:28
AST 17 U/L (17-59) 12/12/24 11:28
ALT 21 U/L (0-50) 12/12/24 11:28
Alkaline Phosphatase 128 U/L (38-126) H 12/12/24 11:28
Total Protein 6.6 g/dl (6.3-8.2) 12/12/24 11:28
Albumin 3.6 g/dl (3.5-5.0) 12/12/24 11:28
Physical Exam
-
+ DP pulse left foot
+ DP pulse right foot
+ femoral pulses bilat
left great toe wound on plantar aspect
mild erythema
--- NOTE | 2024-12-14 07:48 | CON.VAS ---
Consultation
Consultation Request
Date/Time Consultation Performed: 12/14/24 7am
Performing Provider: Dariela
Reason for Consultation: Nonhealing left great toe wound
Medical History
-
Chief Complaint: Left great toe wound
History of Present Illness:
49-year-old male with past medical history significant for uncontrolled diabetes, hypertension, hyperlipidemia, and chronic left great toe wound presented to the emergency room on 12/12/2024 for increased pain and redness to the left great toe wound.
Wound has been present for about 1 year, has had debridements by podiatry. He has not been on antibiotics recently and denies any further symptoms. Vascular consult for PAD evaluation. Patient seen at bedside this a.m. with Dr. Lyle.
Patient was seen by our service September 2023 for this same wound. No vascular intervention required at that time. Patient never followed up in our office.
Left toe wound appears dry, no drainage noted, image below. Easily palpable DP pulse. Foot warm and pink. No other wounds noted.
Left foot
Past Medical History
Past Medical History: HTN, Hypercholesterolemia and IDDM
Past Surgical History: Other (Debridement of left toe ulcer)
Social History
Tobacco: Non-Smoker
Family History
Family History: Reviewed & Not Pertinent
Allergies / Home Medications
Allergy/AdvReac Type Severity Reaction Status Date / Time
No Known Allergies Allergy Verified 12/12/24 11:11
�Medication �Instructions �Recorded �Confirmed �Type
atorvastatin 40 mg tablet (Lipitor) 40 mg PO DAILY 12/12/24 12/12/24 History
cholecalciferol (vitamin D3) 50 50 mcg PO DAILY 12/12/24 12/12/24 History
mcg (2,000 unit) capsule (Vitamin
D3)
empagliflozin 10 mg tablet 10 mg PO DAILY 12/12/24 12/12/24 History
(Jardiance)
insulin glargine 100 unit/mL (3 34 unit SC HS 12/12/24 12/12/24 History
mL) subcutaneous pen (Basaglar
KwikPen U-100 Insulin)
lisinopril 2.5 mg tablet 2.5 mg PO DAILY 12/12/24 12/12/24 History
sitagliptin phosphate 50 1 tab PO BID 12/12/24 12/12/24 History
mg-metformin 1,000 mg tablet
(Janumet)
Review of Systems
-
History Source: Patient
All other systems: Negative unless noted
Constitutional: Reports No Symptoms
Respiratory: Reports No Symptoms
Vascular: Denies Leg Pain / Claudication
Musculoskeletal: Reports No Symptoms
Skin: Reports Other (Left great toe wound)
Physical Exam
Vital Signs
Temp Pulse Resp BP Pulse Ox
97.7 F 67 18 144/90 98
12/14/24 07:15 12/14/24 07:15 12/14/24 07:15 12/14/24 07:15 12/14/24 07:15
Physical Exam
General: No Apparent Distress
HEENT: Normocephalic and Atraumatic
Respiratory: Non Labored Respirations
Cardiac: Negative JVD
GI: Soft and Non Tender
Musculoskeletal: No Clubbing, No Cyanosis and No Edema
Skin: Warm and Other (See wound image above)
Neuro: Awake, Alert and Oriented
Psych: Calm
Pulses: Bilateral Dorsalis Pedis: +1
Assessment / Plan
-
49-year-old male here with chronic left great toe wound
Plan:
Ultrasound with MARY/TBI pending
Continue local wound care
Given exam and previous studies, there is likely nothing needed from [facility] perspective
Data Reviewed
-
Labs: Labs Reviewed by me
[2024-12-14 08:02] LABS: Hematocrit 40.0 % (39.0-52.0); Hemoglobin 13.5 g/dL (13.0-18.0); Mean Corp Hgb Conc. 33.8 g/dL (33.0-37.0); Mean Corpuscular Volume 86.4 fL (80.0-94.0); Nucleated Red Blood Cells % 0 % (-); Platelet Count 394 10^3/uL (130-400); Red Cell Dist. Width 12.1 % (11.5-14.5)
[2024-12-14 08:31] LABS: Blood Urea Nitrogen 15 mg/dl (9-20); Calcium 9.1 mg/dl (8.4-10.2); Carbon Dioxide 25 mmol/L (22-30); Chloride 108 mmol/L (98-107); Estimated Creatinine Clearance 105 ml/min; Glucose 135 mg/dl (70-99); Potassium 4.4 mmol/L (3.5-5.1); Sodium 137 mmol/L (135-145); eGFR > 60.00
[2024-12-14 09:06] LABS: Glucose - Point of Care 108 mg/dl (70-99)
--- NOTE | 2024-12-14 09:56 | W.PN.POD ---
Today's Communication
Today's Communication
Patient is stable from podiatry.
Assessment / Plan
-
LT foot cellulitis - resolved well
LT hallux chronic non healing diabetic ulcer - will cont with local wound care
Diabetic neuropathy.
Poorly maintained blood sugars.
Plan ; Appreciate vascular consult .
Patient can transition to PO abx for another 1 wk.
HE will f/u with [facility] with [employer]PER[employer]
Will cont with Santyl and dry gauze dressings to LT hallux
Discussed to use heel wt bear for 2 wks and discussed that he needs to get off loading diabetic shoe inserts for pressure relief under the toe
D/W patient in length about staying off his foot and risks with non healing and leading to bone infection and loosing the toe and foot
Pt understands the risks.
No surgical intervention by podiatr
Subjective
Chief Complaint
LEft foot cellultis, Great toe diabetic ulcer
Subjective
Patient seen at bedside, doing well, resolved redness to LT foot, resolving pain, no fever, chills.
Objective
Temp Pulse Resp BP Pulse Ox
97.7 F 67 18 144/90 98
12/14/24 07:15 12/14/24 07:15 12/14/24 07:15 12/14/24 07:15 12/14/24 07:15
12/14/24 07:39
12/14/24 07:39
Vital Signs and Lab results were reviewed.
B/L pedal pulses are palpable
Neuro : Diminished protective sensation
LT foot resolved edema, erythema improved,
LT hallux plantar aspect with pink granular ulcer with some necrotic tissue in the center, no active purulence, not probe to bone
No crepitus or any signs of abscess noted
--- NOTE | 2024-12-14 10:09 | PN.DE.MGMTRT ---
Insulin Management
- -
12/14/2024 Diabetes Management Consult
Patient admitted 12/12 for increased pain and redness of L great toe non healing wound. PMH HTN, HCL, diabetes. Prior to admission was taking Jardiance 10 mg daily, Janument 50-1000 BID, Basaglar 34 units @ hs. A1C from 11/26/2024 12.4%, cr .7,
eGFR > 60.
Patient is awake alert and oriented able to discuss diabetes care. States he has had diabetes 18+ years and [facility]. Was just started on the insulin 2 weeks ago. He states he has a glucose monitor and supplies.
Currently receiving 34 units of lantus @ hs with Farxiga 10 mg daily. Glucose range 108 to 196. Will add low corrective insulin. Will resume metformin 1000 BID and Januvia 100 mg daily, first dose now.
As patient has only started insulin two weeks ago will not start AC novolog, glucose results here are acceptable on current diet. Encouraged patient to follow diet at discharge.
Discussed with nurse
Will follow.
Diabetes History
- -
Type of Diabetes: 2 requiring insulin
Pre-Admission Diabetes Regimen
12/14/24
07:39
Creatinine 0.9
Insulin Pump Settings
IP Diabetes Regimen
12/13/24 12/13/24 12/14/24
17:12 21:40 07:39
Glucose 135 H
POC Glucose 139 H 196 H
12/14/24
08:55
Glucose
POC Glucose 108 H
Patient Education
--- NOTE | 2024-12-14 11:30 | PHA.VAN.FU ---
Vancomycin Assessment / Plan
- Assessment
Renal Function: Stable
WBC's are: WNL
Concomitant Antimicrobials: piperacillin/tazobactam
- Dosing Plan
Continue: Vanc 1500mg Q12H
- Monitoring Plan
No level(s) ordered at this time: consider levels in next few days
- Follow Up
Pharmacy will continue to follow.
Vancomycin Follow UP
- -
Patient Age: 49
Patient Sex: Male
Vancomycin Day #: 3
Indication: Bone And Joint
Requesting Provider: Mary Anne Humphrey
Pertinent Antimicrobial Allergies:
NKDA
Height / Weight:
Height 5 ft 6 in
Actual Weight 89.8 kg
Pertinent Past Medical History: BMI ~ 32; DM 2
- Vital Signs / Lab Results
Temp Pulse Resp BP Pulse Ox
97.7 F 67 18 144/90 98
12/14/24 07:15 12/14/24 07:15 12/14/24 07:15 12/14/24 07:15 12/14/24 07:15
Lab Results - Hematology
12/12/24 12/13/24 12/14/24
11:28 05:57 07:39
WBC 8.9 10.5 10.0
Lab Results - Chemistry
12/12/24 12/13/24 12/14/24
11:28 05:57 07:39
BUN 24 H 17 15
Creatinine 0.8 0.7 0.9
Estimated Creat Clear 119 > 125 105
Albumin 3.6
Microbiology Results
12/12/24 13:52 Wound Culture - Preliminary
Toe Staphylococcus aureus
Enterococcus species
Streptococcus agalactiae
Gram Stain - Preliminary
12/12/24 17:29 Blood Culture - Preliminary
Blood/Venous No Growth in 24 hours- Final report to follow
12/12/24 17:08 Blood Culture - Preliminary
Blood/Venous No Growth in 24 hours- Final report to follow
--- NOTE | 2024-12-14 12:24 | CM ---
Patient seen at bedside
seen by podiatry
PLAN: home, no needs when stable
daughter or ex- to transport
[2024-12-14 12:25] LABS: Glucose - Point of Care 156 mg/dl (70-99)
[2024-12-14] MEDS: NOVOLOG FLEXPEN-LOW RESISTANCE 1 UNITS SC (13:22)
[2024-12-14] MEDS: JANUVIA 100 MG PO (17:02)
[2024-12-14] MEDS: GLUCOPHAGE 1000 MG PO (17:02)
[2024-12-14 17:29] VITALS: BP 141/80
--- NOTE | 2024-12-14 17:30 | PTCARENOTE ---
patient arrived from [facility] via w/c. denies complaints, independent, vss, oriented to new room and call hudson, will continue to monitor.
[2024-12-14 18:15] LABS: Glucose - Point of Care 264 mg/dl (70-99)
[2024-12-14] MEDS: NOVOLOG FLEXPEN-LOW RESISTANCE 3 UNITS SC (18:22)
[2024-12-14 22:01] LABS: Glucose - Point of Care 171 mg/dl (70-99)
[2024-12-14] MEDS: LANTUS 0.34 UNITS SC (22:39)
[2024-12-14 23:00] VITALS: BP 122/68
[2024-12-15] MEDS: ZOSYN 50 IV ×4 (04:06→22:37)
[2024-12-15] MEDS: VANCOCIN 530 MG IV (06:02)
[2024-12-15 06:17] LABS: Hematocrit 38.4 % (39.0-52.0); Hemoglobin 12.9 g/dL (13.0-18.0); Mean Corp Hgb Conc. 33.6 g/dL (33.0-37.0); Mean Corpuscular Volume 86.9 fL (80.0-94.0); Nucleated Red Blood Cells % 0 % (-); Platelet Count 408 10^3/uL (130-400); Red Cell Dist. Width 12.1 % (11.5-14.5)
[2024-12-15 06:41] LABS: Blood Urea Nitrogen 21 mg/dl (9-20); Calcium 8.8 mg/dl (8.4-10.2); Carbon Dioxide 24 mmol/L (22-30); Chloride 108 mmol/L (98-107); Estimated Creatinine Clearance 86 ml/min; Glucose 197 mg/dl (70-99); Potassium 4.2 mmol/L (3.5-5.1); Sodium 137 mmol/L (135-145); eGFR > 60.00
[2024-12-15 07:00] VITALS: BP 149/48
[2024-12-15 07:41] LABS: Glucose - Point of Care 185 mg/dl (70-99)
[2024-12-15] MEDS: JANUVIA 100 MG PO (08:00)
[2024-12-15] MEDS: GLUCOPHAGE 1000 MG PO ×2 (08:00→16:34)
[2024-12-15] MEDS: LIPITOR 40 MG PO (08:00)
[2024-12-15] MEDS: NOVOLOG FLEXPEN-LOW RESISTANCE 1 UNITS SC ×2 (08:00→18:15)
[2024-12-15] MEDS: FARXIGA 10 MG PO (08:00)
--- NOTE | 2024-12-15 08:00 | PN.DE.MGMTRT ---
Insulin Management
- -
12/15/2024 Diabetes Management Consult Follow up
Patient admitted 12/12 for increased pain and redness of L great toe non healing wound. PMH HTN, HCL, diabetes. Prior to admission was taking Jardiance 10 mg daily, Janument 50-1000 BID, Basaglar 34 units @ hs. A1C from 11/26/2024 12.4%, cr .7,
eGFR > 60.
Patient is awake alert and oriented able to discuss diabetes care. States he has had diabetes 18+ years and is [facility]. Was just started on the insulin 2 weeks ago. He states he has a glucose monitor and supplies.
12/14 Currently receiving 34 units of lantus @ hs with Farxiga 10 mg daily. Glucose range 108 to 196. Will add low corrective insulin. Will resume metformin 1000 BID and Januvia 100 mg daily.
12/15 Glucose up to 264 pre dinner. Fasting glucose today 197. Pre lunch 202. Will start 4 units novolog AC to start with lunch.
Discussed with patient the need for AC novolog, he is agreeable, will continue Jardiance 10 mg daily, Januvia 100 mg daily and metformin 1000 mg BID with 34 units lantus @ HS.
Discussed with nurse
Will follow.
Diabetes History
- -
Type of Diabetes: 2
Pre-Admission Diabetes Regimen
12/14/24 12/15/24
07:39 05:48
Creatinine 0.9 1.1
Insulin Pump Settings
IP Diabetes Regimen
12/14/24 12/14/24 12/14/24
07:39 08:55 12:14
Glucose 135 H
POC Glucose 108 H 156 H
12/14/24 12/14/24 12/15/24
18:13 22:00 05:48
Glucose 197 H
POC Glucose 264 H 171 H
12/15/24
07:39
Glucose
POC Glucose 185 H
Patient Education
[2024-12-15] MEDS: HEPARIN 5000 UNITS SC ×3 (08:02→23:19)
[2024-12-15] MEDS: ZESTRIL 2.5 MG PO (08:05)
[2024-12-15 11:53] LABS: Glucose - Point of Care 202 mg/dl (70-99)
[2024-12-15] MEDS: NOVOLOG FLEXPEN 4 UNITS SC ×2 (13:17→18:14)
[2024-12-15] MEDS: NOVOLOG FLEXPEN-LOW RESISTANCE 2 UNITS SC (13:17)
[2024-12-15 15:00] VITALS: BP 136/76
--- NOTE | 2024-12-15 16:02 | W.PN.HOSP.TC ---
Addendum entered and electronically signed by Donell Nicolas MD 12/16/24 08:58:
12/15/24
Attending Addendum-
I saw and evaluated the patient. I reviewed the resident�s note and agree with findings and plan as documented in the resident�s note. Sub: NAEON, Denies pain in Left foot. Denies fevers chills. Full 12 point ROS reviewed and negative except as
documented Exam: Vitals reviewed in chart GEN-NAD heart RRR lugs clear abd soft LE left great toe bandaged faint b/l DP B/L
Plan:
# Diabetic foot ulcer- infected left great toe
-Lt Foot x-ray: soft tissue swelling of the great toe with a questionable soft tissue defect medially. There is no radiographic evidence of acute osteomyelitis.
-Wound Cx: poly microbial- MSSA, strep, diphtheroids, and enterococcus - sensi pend
-appreciate Podiatry input- surgical shoe to left foot with heel weight bear
-vasc input appreciated- check MARY left TBI only mildly decreased 0.6
-DC Vanco and cont Zosyn- transition to PO on DC
-pain regimen
#DM II
- last HBa1c 11/2024-12.4
- BB insulin added after that
- uncontrolled add mealtime insulin
- AccuCheck AC & HS
- SSI
- continue Jardiance
- cont Janumet
- continue insulin glargine 34 q hs
- ctm closely
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
#Hyperlipidemia
- continue atorvastatin
#hypertension
- continue lisinopril
Code status: full code
DVT prophylaxis: heparin sq
Dispo DC in am
Time spent coordinating care, review of plan of care with resident, personally reviewed records in EMR, med rec, consults, notes, labs, radiology, d/w nursing � 51 mins
Original Note:
Today's Communication/Plan
-
Patient continues to improve clinically.
Vancomycin discontinued today. Plan to continue piperacillin-tazobactam until discharge.
Plan to start amoxicillin-clavulanate p.o. antibiotics upon discharge.
Continue to monitor temperature curve, CBC, BMP.
Plan for discharge to home tomorrow.
Assessment / Plan
Assessment / Plan
#Diabetic foot ulcer
�Vancomycin discontinued today
�Continue piperacillin�tazobactam (day#3) until discharge
�Plan to transition to amoxicillin-clavulanate 875 mg p.o. every 12 hours 14-day completion course upon discharge
�AFVSS, mildly elevated WBC
�Blood culture 12/12: NGTD
�Wound culture 12/12: GBS, Staph aureus, Enterococcus, diphtheroids
�Podiatry consulted: No surgical intervention; collagenase and gauze dressings
�Vascular surgery consulted: Likely no intervention necessary
�TBI's: Left 0.6, right 0.72
�MARY's: Unreliable due to noncompressible arteries bilaterally
#Diabetic neuropathy
#Type 2 diabetes
#Hyperglycemia
�Per diabetes management, resume metformin, sitagliptin, and dapagliflozin, as well as the following insulin regimen:
�Lantus 34 units at bedtime
�Novolog 4 units AC
�Aspart SSI
#Acute kidney injury
�Cr 1.1 today, elevated from 0.7 two days prior
�Vancomycin discontinued today
�Piperacillin-tazobactam to be discontinued upon discharge
�Monitor BMP
#Hypertension
�C/W lisinopril
#Hyperlipidemia
�C/W atorvastatin
#Acute anemia
�Hgb 12.9, clinically stable
�Monitor H&H
�Transfuse Hgb < 7
Disposition:
-CM: Home, no needs when stable
DVT PPx: Heparin
Anticipated Discharge: Within 24 hours
Subjective/Interval History
-
Date of Service: December 15, 2024
Patient seen at the bedside on hospital day #4. Nursing reports NAEO. Patient states he feels 'a little better.' He thinks his toe is healing, as he notices less swelling, no pain, no numbness. No current complaints.
Objective Data
-
Labs:
Laboratory Results
12/15/24
05:48
WBC 11.4 H
Hgb 12.9 L
Hct 38.4 L
Plt Count 408 H
Sodium 137
Potassium 4.2
Chloride 108 H
Carbon Dioxide 24
BUN 21 H
Creatinine 1.1
Glucose 197 H
Calcium 8.8
Vital Signs:
Vital Signs
Temp Pulse Resp BP Pulse Ox
97.9 F 73 17 136/76 98
12/15/24 15:00 12/15/24 15:00 12/15/24 15:00 12/15/24 15:00 12/15/24 15:00
I&O
12/14/24 12/15/24 12/16/24
06:59 06:59 06:59
Intake Total 600 / 600 2400 / 2400
Balance 600 / 600 2400 / 2400
Review of Systems
-
History Source: Patient
Constitutional: Denies Fever, Fatigue, Night Sweats or Chills
EENT: Reports No Symptoms Reported
Respiratory: Denies Cough or Trouble Breathing
Cardiac: Denies Chest Pain or Palpitations
Abdomen/GI: Denies Abdominal Pain, Nausea, Vomiting or Diarrhea
Genitourinary: Denies Dysuria or Difficulty Voiding
Musculoskeletal: Denies Edema
Skin: Reports Other (Improving ulcer on left great toe)
Neuro: Denies Headache, Weakness, Numbness or Lightheadedness
Physical Exam
-
General: No Apparent Distress and Comfortable
HEENT: Normocephalic and Atraumatic
Respiratory: Clear to Auscultation and Non Labored Respirations; Negative Wheezes or Crackles
Cardiac: Regular Rhythm, S1/S2 and Other (Extremity pulses intact); Negative Murmur, Rub or Gallop
GI: Soft, Nontender and Normal Bowel Sounds
Musculoskeletal: No Edema; Negative Cyanosis
Skin: Warm, Dry and Ulcers (Left great toe ulcer currently wrapped)
Neuro: AO x 3
Psych: Calm
[2024-12-15] MEDS: SANTYL OINTMENT 1 APPLIC TOPICAL (16:34)
[2024-12-15 17:49] LABS: Glucose - Point of Care 179 mg/dl (70-99)
[2024-12-15 19:00] VITALS: BP 158/88
[2024-12-15 21:50] LABS: Glucose - Point of Care 151 mg/dl (70-99)
[2024-12-15] MEDS: LANTUS 0.34 UNITS SC (22:37)
[2024-12-15 23:00] VITALS: BP 126/72
[2024-12-16] MEDS: ZOSYN 50 IV ×2 (04:46→10:07)
[2024-12-16 06:00] LABS: Hematocrit 37.1 % (39.0-52.0); Hemoglobin 12.7 g/dL (13.0-18.0); Mean Corp Hgb Conc. 34.2 g/dL (33.0-37.0); Mean Corpuscular Volume 85.9 fL (80.0-94.0); Nucleated Red Blood Cells % 0 % (-); Platelet Count 361 10^3/uL (130-400); Red Cell Dist. Width 12.1 % (11.5-14.5)
[2024-12-16 06:34] LABS: Blood Urea Nitrogen 16 mg/dl (9-20); Calcium 8.7 mg/dl (8.4-10.2); Carbon Dioxide 22 mmol/L (22-30); Chloride 108 mmol/L (98-107); Estimated Creatinine Clearance 86 ml/min; Glucose 116 mg/dl (70-99); Potassium 4.2 mmol/L (3.5-5.1); Sodium 137 mmol/L (135-145); eGFR > 60.00
--- NOTE | 2024-12-16 07:39 | PN.DE.MGMTRT ---
Insulin Management
- -
12/16/2024: Diabetes Management Follow up
Patient admitted 12/12 for increased pain and redness of L great toe non healing wound. PMH HTN, HCL, diabetes. Prior to admission was taking Jardiance 10 mg daily, Janumet 50-1000 BID, Basaglar 34 units @ hs. A1C from 11/26/2024 12.4%, cr .7,
eGFR > 60.
Patient is awake alert and oriented able to discuss diabetes care. States he has had diabetes 18+ years and is [facility]. Was just started on the insulin 2 weeks ago. He states he has a glucose monitor and supplies.
Currently receiving 34 units of Lantus @ hs, AC NovoLog 4 units, Farxiga 10 mg daily, metformin 1000 BID and Januvia 100 mg daily.
12/15 premeal range 179 to 202, required 1-2 units of additional corrective insulin with meals. HS glucose 151, FBG 116 V, 100 POC this AM.
Will increase AC NovoLog to 5 units, 1st dose with breakfast- discussed with Nurse
Cont Jardiance 10 mg daily, Januvia 100 mg daily and Metformin 1000 mg BID with 34 units Lantus @ HS.
Discussed with patient the need for AC NovoLog, and he was agreeable. Will cont to follow and adjust diabetes regimen if necessary.
Diabetes History
- -
Type of Diabetes: 2 requiring insulin
Pre-Admission Diabetes Regimen
12/16/24
05:37
Creatinine 1.1
Insulin Pump Settings
IP Diabetes Regimen
12/15/24 12/15/24 12/15/24
07:39 11:51 17:47
Glucose
POC Glucose 185 H 202 H 179 H
12/15/24 12/16/24
21:48 05:37
Glucose 116 H
POC Glucose 151 H
Meal type: Lunch
Meal type: Breakfast
Amount consumed: Patient refused
Patient Education
[2024-12-16 07:53] VITALS: BP 114/58
--- NOTE | 2024-12-16 07:53 | W.PN.UPDATE ---
Update Note
Progress Note Update
Noninvasive studies dated 12/14/[address] Lyle's full consultation note. Left TBI is 0.6, just mildly reduced. It is improved from the prior study at which time was 0.52. No significant stenosis is identified, and continuous
Doppler waveforms at the pedal level are multiphasic as well. Should be suggestive of adequacy for healing, although he may have small vessel disease. Will defer to podiatry regarding any needs for surgical debridement or toe amputation. He can
follow-up with us in the office. If continued nonhealing we can consider angiography for completeness sake.
[2024-12-16] MEDS: LIPITOR 40 MG PO (07:57)
[2024-12-16] MEDS: JANUVIA 100 MG PO (07:58)
[2024-12-16] MEDS: GLUCOPHAGE 1000 MG PO (07:58)
[2024-12-16] MEDS: FARXIGA 10 MG PO (07:58)
[2024-12-16] MEDS: SANTYL OINTMENT 1 APPLIC TOPICAL (07:58)
[2024-12-16] MEDS: ZESTRIL 2.5 MG PO (08:02)
[2024-12-16] MEDS: HEPARIN 5000 UNITS SC (08:04)
[2024-12-16 08:08] LABS: Glucose - Point of Care 100 mg/dl (70-99)
[2024-12-16] MEDS: NOVOLOG FLEXPEN-LOW RESISTANCE SC ×2 (08:08→12:07)
[2024-12-16] MEDS: NOVOLOG FLEXPEN SC (09:24)
--- NOTE | 2024-12-16 09:43 | W.PN.HOSP.TC ---
Addendum entered and electronically signed by Donell Nicolas MD 12/16/24 22:37:
Attending Addendum-
I saw and evaluated the patient. I reviewed the resident�s note and agree with findings and plan as documented in the resident�s note. Sub: NAEON, feels great. Denies pain in Left foot. Denies fevers chills. Full 12 point ROS reviewed and negative
except as documented Exam: Vitals reviewed in chart GEN-NAD heart RRR lugs clear abd soft LE left great toe bandaged faint b/l DP B/L
Plan:
# Diabetic foot ulcer- infected left great toe
-Lt Foot x-ray: soft tissue swelling of the great toe with a questionable soft tissue defect medially. There is no radiographic evidence of acute osteomyelitis.
-Wound Cx: poly microbial- MSSA, strep, diphtheroids, and enterococcus - sensi pend for strep
-appreciate Podiatry input- surgical shoe to left foot with heel weight bear
-vasc input appreciated- check MARY left TBI only mildly decreased 0.6
-ZOSYN/VANCO->transition to Augmentin on DC
-pain regimen
#DM II
- last HBa1c 11/2024-12.4
- BB insulin added after that
- uncontrolled add mealtime insulin
- AccuCheck AC & HS
- SSI
- continue Jardiance
- cont Janumet
- continue insulin glargine 34 q hs add 5u q ac
- ctm closely
- appreciate DM CUSTOMER QUALITY SPECIALIST input
#Hyperlipidemia
- continue atorvastatin
#hypertension
- continue lisinopril
Code status: full code
DVT prophylaxis: heparin sq
Dispo DC home
Time spent coordinating care, DC planning, review of DC plan of care with resident, transition of care, review of records, med rec/scripts sent electronically, consults, notes, d/w consultants, nursing, family, and CM� 32 mins >50% of this time was
devoted to counseling and coordination of care
Original Note:
Today's Communication/Plan
-
Improving left great toe diabetic foot ulcer. Monitor clinical status
Continue IV piperacillin-tazobactam until discharge. Transition to oral amoxicillin-clavulanate upon discharge for 14-day completion course.
Assessment / Plan
Assessment / Plan
#Diabetic foot ulcer
�Vancomycin discontinued 12/15
�Continue piperacillin�tazobactam (day#4) until discharge
�Plan to transition to amoxicillin-clavulanate 875 mg p.o. every 12 hours 14-day completion course upon discharge
�AFVSS, no leukocytosis
�Blood culture 12/12: NGTD
�Wound culture 12/12: GBS, Staph aureus, Enterococcus, diphtheroids
�Podiatry consulted: No surgical intervention; collagenase and gauze dressings
�Vascular surgery consulted: Deferred to podiatry for needs for surgical debridement or amputation; follow-up with vascular surgery outpatient, per Dr. Valente
�TBI's: Left 0.6, right 0.72
�MARY's: Unreliable due to noncompressible arteries bilaterally
#Diabetic neuropathy
#Type 2 diabetes
#Hyperglycemia
�Continue to monitor blood glucose levels: 100�202 last 24 hours
�Per diabetes management, continue metformin, sitagliptin, and dapagliflozin, as well as the following insulin regimen:
�Lantus 34 units at bedtime
�Novolog 4 units AC
�Aspart SSI
#Acute kidney injury
�Cr 1.1 today, stable from 1.1 yesterday
�Vancomycin discontinued 12/15
�Piperacillin-tazobactam to be discontinued upon discharge
�Monitor BMP
#Hypertension
�C/W lisinopril
#Hyperlipidemia
�C/W atorvastatin
#Acute anemia
�Hgb 12.7, clinically stable
�Monitor H&H
�Transfuse Hgb < 7
Disposition:
-Plan for discharge home today
-CM: Home, no needs when stable
DVT PPx: Heparin
Anticipated Discharge: Today
Subjective/Interval History
-
Date of Service: December 16, 2024
Patient is seen at bedside on hospital day #5. Patient states he is 'good, fine. A little better.' Patient thinks the ulcer on left toe is improving from yesterday. No current complaints. Amenable to discharge to home later today.
Objective Data
-
Labs:
Laboratory Results
12/16/24
05:37
WBC 10.8
Hgb 12.7 L
Hct 37.1 L
Plt Count 361
Sodium 137
Potassium 4.2
Chloride 108 H
Carbon Dioxide 22
BUN 16
Creatinine 1.1
Glucose 116 H
Calcium 8.7
Vital Signs:
Vital Signs
Temp Pulse Resp BP Pulse Ox
98.1 F 63 16 114/58 97
12/16/24 07:53 12/16/24 07:53 12/16/24 07:53 12/16/24 07:53 12/16/24 07:53
I&O
12/15/24 12/16/24 12/17/24
06:59 06:59 06:59
Intake Total 2400 / 2400
Balance 2400 / 2400
Review of Systems
-
History Source: Patient
Constitutional: Denies Fever, Fatigue or Chills
EENT: Reports No Symptoms Reported
Respiratory: Denies Cough or Trouble Breathing
Cardiac: Denies Chest Pain or Palpitations
Abdomen/GI: Denies Abdominal Pain, Nausea, Vomiting or Diarrhea
Genitourinary: Denies Dysuria or Difficulty Voiding
Skin: Reports Other (Denies pain, discharge in left great toe ulcer)
Neuro: Denies Headache, Weakness or Numbness
Physical Exam
-
General: No Apparent Distress and Comfortable
HEENT: Normocephalic and Atraumatic
Respiratory: Clear to Auscultation and Non Labored Respirations; Negative Wheezes or Crackles
Cardiac: Regular Rhythm and S1/S2; Negative Murmur, Rub or Gallop
GI: Soft, Nontender and Normal Bowel Sounds
Musculoskeletal: No Edema; Negative Cyanosis
Skin: Ulcers (Improving ulcer on left great toe plantar aspect, without discharge, foul smell, or tenderness to palpation on foot)
Neuro: AO x 3, No Motor Deficits and No Sensory Deficits
Psych: Calm
[2024-12-16] MEDS: NOVOLOG FLEXPEN 5 UNITS SC ×2 (10:02→13:16)
[2024-12-16] MEDS: FLUSH (NSS) 1 FLUSH IV (10:08)
[2024-12-16 11:57] LABS: Glucose - Point of Care 98 mg/dl (70-99)
--- NOTE | 2024-12-16 14:01 | CM ---
Plan: Discharge to home today; no needs
[2024-12-16 15:09] VITALS: BP 142/79
--- NOTE | 2024-12-16 16:00 | PTCARENOTE ---
patient denies complains, tolerating diet, independent, vss, for discharge to home
--- NOTE | 2024-12-16 20:48 | W.DCSUMMARY ---
Addendum entered and electronically signed by Donell Nicolas MD 12/16/24 22:38:
Read, reviewed, and agree. See same day progress note for additional details.
Dangelo Nicolas MD
Original Note:
Documented by User: Anatoliy Lee MD, Resident 12/16/24 21:12
Discharge Summary
Discharge Data
Date of Admission: 12/12/24
Date of Discharge: 12/16/24
-
Pending Results: No
Hospital Course
Discharging Physician : Anatoliy Lee MD; Donell Nicolas MD
Disposition : Home
Primary care physician : Femi Perez
Principal Discharge diagnosis : Infected diabetic ulcer on left great toe; acute kidney injury; anemia
Chronic Discharge diagnosis : Insulin-dependent type 2 diabetes; hyperlipidemia; hypertension
Hospital Course : Patient presented to the [facility] emergency department for evaluation of left great toe wound with progressive pain and erythema, which was beginning to migrate into his foot, ankle, and lower medial calf. Patient was
referred to the ER by the [facility]. Based on clinical and imaging findings, the patient was diagnosed with an infected diabetic ulcer on his left great toe, which necessitated treatment with antibiotics. Specifically, the patient's
wound culture showed polymicrobial growth with MSSA, diphtheroids, Enterococcus, and group B strep. The patient was administered vancomycin and piperacillin-tazobactam during his hospital course. The patient was seen by both podiatry and vascular
surgery, both of whom recommended nonsurgical management at this time. The patient improved clinically on IV antibiotics during his stay, with the pain, erythema, and foul smell of his ulcer improving over time. The patient was found to be mildly
anemic during his hospital stay, which is likely delusional in etiology. No signs of active bleeding were noted, and the patient remained clinically stable. The patient was also found to have mild creatinine elevations, with a peak value of 1.1.
The patient's treatment with vancomycin was stopped when creatinine elevations were seen and MSSA was identified. The patient was medically cleared for discharge to home on an antibiotic regimen of amoxicillin�clavulanate 875 mg p.o. every 12 hours
for 10 more days, which represents a 14-day completion course
The patient's chronic conditions were managed as follows:
Insulin-dependent type 2 diabetes: The patient was maintained on his home medications, as well as insulin aspart with meals and a low corrective insulin sliding scale during the hospital stay. The patient's blood sugars remained within an
acceptable range throughout the hospital course given the patient's history of uncontrolled diabetes (HgbA1c 12.4 in 11/2024). Diabetes management recommended the addition of insulin aspart 5 units with meals to the patient's insulin regimen. The
patient's prior diabetes home medications otherwise remained the same during hospital course.
Hyperlipidemia: Managed with home medication of atorvastatin.
Hypertension: Managed with home medication of lisinopril.
Important imaging findings :
Toe X-Ray - IMPRESSION: There is soft tissue swelling of the great toe with a questionable soft tissue defect medially. There is no radiographic evidence of acute osteomyelitis.
Peripheral arterial lower extremity ultrasound with MARY/TBI - IMPRESSION:
1. 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 Toe brachial indices are considered more reliable in this situation.
2. Left toe brachial index measures 0.6 (normal greater than 0.7), compared to 0.52 on prior. Scattered calcified plaque without focal significant large vessel stenosis demonstrated. Spectral Doppler waveforms are normal to the level of the ankle.
3. Right toe brachial index 0.72, compared to 0.81 on prior. Scattered calcified plaque without focal significant large vessel stenosis demonstrated. Spectral Doppler waveforms are normal to the level of the ankle.
Procedure findings : N/A
Discharge Plan
-
Patient Disposition: Home (Routine Discharge)
Discharge Diagnosis/Procedures: Infected diabetic foot ulcer
Condition: Good
Diet: As tolerated
Activity: As tolerated
Driving Restrictions: As prior to admission
Bathing Restrictions: None
Wound Care: Wound Care of Left Big Toe:
Clean wound with Saline daily, apply santyl ointment to area and cover with CLEAN 4x4 gauze, secure in place with markel wrap or bandage
Be sure to bear weight on the HEEL for TWO WEEKS, avoiding pressure to Left Big Toe until seen by Vascular Surgeon or Dr. Perez
Activity Restrictions/Additional Instructions:
Follow up with vascular surgery (Dr. Azar Valente) in one month
Repeat BMP in one week, and follow up with PCP (Dr. Femi Perez)
Instructions: Wound Care (DC)
Referrals:
Femi Guzman MD [Family Provider, [facility]]
Referral Note: within 1 week
Azar Valente MD [Active, Vascular Surgery] - in one month
Referral Note: Please call the office for follow up within 1 month
Additional Discharge Medication Instructions: Begin oral antibiotics on discharge, as follows:
Amoxicillin-clavulanate 875 mg by mouth every 12 hours for 10 more days (20 total pills) for 14-day completion course
Diabetes medication change, as follows:
Insulin aspart 5 units subcutaneous injection with meals
Prescriptions:
New
amoxicillin-pot clavulanate 875-125 mg tablet
1 tab PO Q12H 10 Days Qty: 20 0RF
insulin aspart U-100 100 unit/mL (3 mL) Insulin Pen
5 unit SC AC 90 Days Qty: 13.5 0RF
Santyl 250 unit/gram Ointment
1 applic topical DAILY Qty: 250 0RF
Continued
atorvastatin [Lipitor] 40 mg Tablet
40 mg PO DAILY
lisinopril 2.5 mg Tablet
2.5 mg PO DAILY
Janumet 50-1,000 mg Tablet
1 tab PO BID
insulin glargine [Basaglar KwikPen U-100 Insulin] 100 unit/mL (3 mL) Insulin Pen
34 unit SC HS
cholecalciferol (vitamin D3) [Vitamin D3] 50 mcg (2,000 unit) Capsule
50 mcg PO DAILY
Jardiance 10 mg Tablet
10 mg PO DAILY
Discharge Orders:
Discharge Patient (As Directed); Ordered 12/16/24
Ordered By: Uriel Ennis
Discharge Date and Time
Discharge Date/Time: 12/16/24 17:29
Print Language: FAROESE

Documented by User: Donell Nicolas MD 12/16/24 22:34
Discharge Summary
Discharge Data
Date of Admission: 12/12/24
Date of Discharge: 12/16/24
Discharge Plan
-
Patient Disposition: Home (Routine Discharge)
Discharge Diagnosis/Procedures: Infected diabetic foot ulcer
Condition: Good
Diet: As tolerated
Activity: As tolerated
Driving Restrictions: As prior to admission
Bathing Restrictions: None
Wound Care: Wound Care of Left Big Toe:
Clean wound with Saline daily, apply santyl ointment to area and cover with CLEAN 4x4 gauze, secure in place with markel wrap or bandage
Be sure to bear weight on the HEEL for TWO WEEKS, avoiding pressure to Left Big Toe until seen by Vascular Surgeon or Dr. Perez
Activity Restrictions/Additional Instructions:
Follow up with vascular surgery (Dr. Azar Valente) in one month
Repeat BMP in one week, and follow up with PCP (Dr. Femi Perez)
Instructions: Wound Care (DC)
Referrals:
Femi Guzman MD [Family Provider, Family Practice]
Referral Note: within 1 week
Azar Valente MD [Active, Vascular Surgery] - in one month
Referral Note: Please call the office for follow up within 1 month
Additional Discharge Medication Instructions: Begin oral antibiotics on discharge, as follows:
Amoxicillin-clavulanate 875 mg by mouth every 12 hours for 10 more days (20 total pills) for 14-day completion course
Diabetes medication change, as follows:
Insulin aspart 5 units subcutaneous injection with meals
Prescriptions:
New
amoxicillin-pot clavulanate 875-125 mg tablet
1 tab PO Q12H 10 Days Qty: 20 0RF
insulin aspart U-100 100 unit/mL (3 mL) Insulin Pen
5 unit SC AC 90 Days Qty: 13.5 0RF
Santyl 250 unit/gram Ointment
1 applic topical DAILY Qty: 250 0RF
Continued
atorvastatin [Lipitor] 40 mg Tablet
40 mg PO DAILY
lisinopril 2.5 mg Tablet
2.5 mg PO DAILY
Janumet 50-1,000 mg Tablet
1 tab PO BID
insulin glargine [Basaglar KwikPen U-100 Insulin] 100 unit/mL (3 mL) Insulin Pen
34 unit SC HS
cholecalciferol (vitamin D3) [Vitamin D3] 50 mcg (2,000 unit) Capsule
50 mcg PO DAILY
Jardiance 10 mg Tablet
10 mg PO DAILY
Discharge Orders:
Discharge Patient (As Directed); Ordered 12/16/24
Ordered By: Uriel Ennis
Discharge Date and Time
Discharge Date/Time: 12/16/24 17:29
Print Language: FAROESE
== END 2024-12-16 17:29 | disposition home or self-care (01) | DRG 638 ==
LOC: 3 WEST ACU 15:18
PROVIDERS: Nurse Practitioner Family; ADMITTING PHYSICIAN Internal Medicine; ATTENDING PHYSICIAN Family Medicine; CONSULT PHYSICIAN Podiatrist Foot & Ankle Surgery; EMERGENCY PHYSICIAN Emergency Medicine; FAMILY PHYSICIAN Family Medicine; OTHER PHYSICIAN Surgery
DX: E11.621 Type 2 diabetes mellitus with foot ulcer (principal); L03.116 Cellulitis of left lower limb; L97.528 Non-pressure chronic ulcer of other part of left foot with other specified severity; E11.40 Type 2 diabetes mellitus with diabetic neuropathy, unspecified; I10 Essential (primary) hypertension; E78.00 Pure hypercholesterolemia, unspecified; E11.65 Type 2 diabetes mellitus with hyperglycemia; B95.2 Enterococcus as the cause of diseases classified elsewhere; N17.9 Acute kidney failure, unspecified; B95.61 Methicillin susceptible Staphylococcus aureus infection as the cause of diseases classified elsewhere; B96.89 Other specified bacterial agents as the cause of diseases classified elsewhere; D64.9 Anemia, unspecified; Z79.4 Long term (current) use of insulin; Z79.84 Long term (current) use of oral hypoglycemic drugs
CPT/HCPCS: 73660; 80048; 80053; 82962; 85025; 85027; 85652; 86140; 87040; 87070; 87077; 87147; 87186; 87205; 93922; 93925; 99285

== ENCOUNTER → 2024-12-16 17:14 | Outpatient (REF) | payer OTHER, SELFPAY ==
[2024-12-16 17:59] LABS: ALT (SGPT) 27 U/L (0-50); AST (SGOT) 28 U/L (17-59); Albumin 4.0 g/dl (3.5-5.0); Alkaline Phosphatase 94 U/L (38-126); Blood Urea Nitrogen 16 mg/dl (9-20); Calcium 9.2 mg/dl (8.4-10.2); Carbon Dioxide 24 mmol/L (22-30); Chloride 106 mmol/L (98-107); Glucose 184 mg/dl (70-99); Potassium 4.1 mmol/L (3.5-5.1); Sodium 136 mmol/L (135-145); Total Protein 7.3 g/dl (6.3-8.2); eGFR > 60.00
== END ==
LOC: REG 17:14
PROVIDERS: ATTENDING PHYSICIAN Nurse Practitioner Adult Health
DX: E11.65 Type 2 diabetes mellitus with hyperglycemia (principal); R80.9 Proteinuria, unspecified
CPT/HCPCS: 36415; 80053

== ENCOUNTER → 2024-12-28 17:12 | Outpatient (REF) | payer OTHER, SELFPAY ==
[2024-12-28 17:50] LABS: Blood Urea Nitrogen 18 mg/dl (9-20); Calcium 9.3 mg/dl (8.4-10.2); Carbon Dioxide 25 mmol/L (22-30); Chloride 104 mmol/L (98-107); Glucose 364 mg/dl (70-99); Potassium 4.2 mmol/L (3.5-5.1); Sodium 137 mmol/L (135-145); eGFR > 60.00
== END ==
LOC: CLINIC 17:12
PROVIDERS: ATTENDING PHYSICIAN Nurse Practitioner Adult Health
DX: E11.65 Type 2 diabetes mellitus with hyperglycemia (principal)
CPT/HCPCS: 36415; 80048

== ENCOUNTER 2025-01-23 22:22 | Inpatient (IN) | payer OTHER, SELFPAY ==
[2025-01-23 16:40] VITALS: BP 150/100
[2025-01-23 17:25] LABS: ALT (SGPT) 26 U/L (0-50); AST (SGOT) 20 U/L (17-59); Albumin 4.1 g/dl (3.5-5.0); Alkaline Phosphatase 122 U/L (38-126); Blood Urea Nitrogen 27 mg/dl (9-20); Calcium 9.2 mg/dl (8.4-10.2); Carbon Dioxide 27 mmol/L (22-30); Chloride 98 mmol/L (98-107); Glucose 354 mg/dl (70-99); Potassium 4.6 mmol/L (3.5-5.1); Sodium 133 mmol/L (135-145); Total Protein 7.9 g/dl (6.3-8.2); eGFR > 60.00
[2025-01-23 17:51] LABS: Hematocrit 41.8 % (39.0-52.0); Hemoglobin 13.6 g/dL (13.0-18.0); Mean Corp Hgb Conc. 32.5 g/dL (33.0-37.0); Mean Corpuscular Volume 86.5 fL (80.0-94.0); Nucleated Red Blood Cells % 0 % (-); Red Cell Dist. Width 11.8 % (11.5-14.5)
[2025-01-23 20:50] VITALS: BP 133/71
[2025-01-23 20:51] VITALS: BMI 29.1
--- NOTE | 2025-01-23 21:29 | ED.GENMED ---
History of Present Illness
General
Chief Complaint: Skin Problem
Time Seen by Provider: 01/23/25 21:21
Nursing documentation reviewed up to this point in time: agreed with
History of Present Illness
History of Present Illness:
49-year-old male presents to the ER for further evaluation of wound on his left great toe which has been present for a long time, however acutely worsening over the past week. Patient has been taking his prescribed Augmentin without any
improvement. He states that his blood sugars have been [id number] sugar was reportedly 169 this morning. Patient denies any fevers or chills. No cough or cold symptoms. He denies any pain associated with this wound. He was seen at
his doctor's office today and referred to the ER for admission and further care.
Past History
Past History
ED Past Medical History: NIDDM
Social History
Tobacco: Non-smoker
Alcohol: Occasional
Drug: None
Personal:
Living: with family
Employment: Employed
Phy Exam
Physical Exam
Physical Exam:
Patient is awake, alert, appears no acute distress, head is normocephalic atraumatic, mucous memories moist, conjunctiva pink, heart regular rate and rhythm without murmurs or ectopy, lungs are clear to auscultation without wheezes rales or rhonchi,
abdomen is soft and nontender, left foot with 2+ DP pulse present, left great toe with a 1 cm penetrating ulcer on the medial plantar aspect of the digit, there is surrounding thick callus along with erythema and foul odor, there is lymphangitic
streaking up the dorsum of the foot to the anterior ankle, GCS is 15
Course
Orders/Labs/Results
Orders:
Orders
01/23/25 16:42
CR Foot - Left Min 3 Views Urgent
Comment:
Reason For Exam: diabetic ulcer
01/23/25 16:56
Complete Blood Count/With Diff Urgent
Comprehensive Metabolic Panel Urgent
Lactate Level [Lactic Acid] Q4H
Blood Culture Urgent
VÍCTOR Source: Blood/Venous
Specimen Description:
01/23/25 21:26
Piperacillin/Tazo 4.5 Gram [Zosyn] 4.5 gram in 100 ml IV NOW
01/23/25 21:27
Bedside Glucose- Treatment ONCE
Wound Culture [Wound/Abscess/Other Culture] Urgent
VÍCTOR Source: Toe
Specimen Description:
Date Specimen was Collected: 01/23/25
Time Specimen was Collected: 21:29
01/23/25 21:31
Vancomycin [Vancocin] 2,000 mg 0.9% Sodium Chloride 500 ml [Nss] 500 ml IV NOW
01/23/25 21:34
Blood Culture Urgent
VÍCTRO Source: Blood/Venous
Specimen Description:
Abnormal Lab Results
01/23/25
16:56
WBC 13.2 H 10^3/uL
(4.8-10.8)
MCHC 32.5 L g/dL
(33.0-37.0)
Abs Immat Gran (auto) 0.2 H 10^3/uL
(0-0.05)
Absolute Neuts (auto) 9.0 H 10^3/uL
(1.4-6.5)
Absolute Monos (auto) 0.9 H 10^3/uL
(0.1-0.6)
Immature Gran % 1.3 H %
(0-0.5)
Sodium 133 L mmol/L
(135-145)
BUN 27 H mg/dl
(9-20)
Glucose 354 H mg/dl
(70-99)
01/23/25 16:56
01/23/25 16:56
Mild elevation white blood count to 13,000, glucose is elevated at 354, kidney function preserved
Vital Signs
Initial and Last Documented VS:
Initial Vital Signs
Temp Pulse Resp BP Pulse Ox
97.8 F 88 20 150/100 100
01/23/25 16:40 01/23/25 16:40 01/23/25 16:40 01/23/25 16:40 01/23/25 16:40
Last Documented Vital Signs
Temp Pulse Resp BP Pulse Ox
97.8 F 88 20 133/71 97
01/23/25 16:40 01/23/25 16:40 01/23/25 16:40 01/23/25 20:50 01/23/25 21:33
MDM/Problems Addressed
Differential Diagnosis Includes:
Differential diagnosis to consider but not limited to osteomyelitis, failed outpatient treatment of cellulitis, diabetic foot wound with failure of outpatient treatment along with other etiologies considered
Chronic conditions affecting care:
Diabetes, hypertension, high cholesterol
*Radiology
Radiology exam reviewed: preliminary read by ED provider (I independently viewed and interpreted x-ray of the left foot showing degenerative change at the proximal phalanx of the great toe) and radiology read reviewed ( Radiographic findings
compatible with osteomyelitis involving the proximal and distal phalanges of the left great toe.)
*Pulse Oximetry
SaO2: 97
Oxygen Mode of Delivery: Room air
Patient hypoxic: no
*Critical Care Note
Total Time (30-74mins, 75-104mins- exclusive of procedures): Not Applicable
Data Reviewed
Review of Other/Old Records Reveals: Records (I reviewed discharge summary from Dr. Lee dated 12/16/2024-patient had been admitted for treatment of infected diabetic ulcer on left great toe, also with acute kidney injury and anemia. In the notes
he was treated with Zosyn and Vanco during hospitalization)
Update Note
Update Note:
Broad-spectrum antibiotics are ordered. Will repeat blood sugar for further treatment, no indication for DKA at current time. Full patient presentation reviewed with the hospitalist who accepts patient for admission for further care
ED Attending Note
-
Portions of this chart may have been created with voice recognition software.� Occasional wrong word or��sound alike� substitutions may have occurred due to the inherent limitations of voice recognition software.
Discharge Plan
Departure
Patient Disposition: Admit
Date of Disposition: 01/23/25
Time of Disposition: 21:43
Presentation/result/management discussed w/ accepting MD/DO: Hospitalist
Discharge Problem:
Diabetic foot infection, Cellulitis of foot, left, Uncontrolled diabetes mellitus
Prescriptions:
No Action
atorvastatin [Lipitor] 40 mg Tablet
40 mg PO DAILY
lisinopril 2.5 mg Tablet
2.5 mg PO DAILY
Janumet 50-1,000 mg Tablet
1 tab PO BID
insulin glargine [Basaglar KwikPen U-100 Insulin] 100 unit/mL (3 mL) Insulin Pen
34 unit SC HS
cholecalciferol (vitamin D3) [Vitamin D3] 50 mcg (2,000 unit) Capsule
50 mcg PO DAILY
Jardiance 10 mg Tablet
10 mg PO DAILY
amoxicillin-pot clavulanate 875-125 mg tablet
1 tab PO Q12H 10 Days Qty: 20 0RF
insulin aspart U-100 100 unit/mL (3 mL) Insulin Pen
5 unit SC AC 90 Days Qty: 13.5 0RF
Santyl 250 unit/gram Ointment
1 applic topical DAILY Qty: 250 0RF
Referrals:
NONE,* [Family Provider, Internal Medicine]
Interventions
Interventions:
*Risk Screen - Suicide Last Done: 01/23/25 20:51
*General Assessment Last Done: 01/23/25 20:51
*Neglect/Abuse Screening Last Done: 01/23/25 20:51
*ED- Fall Risk Assessment Last Done: 01/23/25 20:51
*ED COVID-19 Vaccine History Last Done: 01/23/25 20:51
Discharge Date and Time
Print Language: MACANESE
--- NOTE | 2025-01-23 21:42 | HPS.HSE ---
Family Physician
-
Family Physician: * NONE
Chief Complaint
-
Left great toe drainage, erythema
History of Present Illness
49-year-old male with history of uncontrolled diabetes, hypertension, hyperlipidemia, chronic left great toe wound x 1 year who reports his left great toe has had increased swelling with pus like drainage from the plantar wounds over the past week
despite oral Augmentin. He has some mild erythema to the foot with possible streaking up the anterior part of the foot. He was admitted in the beginning of December treated for chronic left great toe diabetic wound with nonsurgical management
vancomycin/Zosyn then outpatient Augmentin.
He has past medical history of uncontrolled DM2, HTN, HLD, chronic left great toe diabetic wound/ulcers, wound culture December 2024 growing MSSA, diphtheroids, Enterococcus and group B strep.
Medical History
Past Medical History
Past Medical History: Reports Other
Additional Past Medical History:
uncontrolled DM2
HTN
HLD
chronic left great toe diabetic wound/ulcers, wound culture December 2024 growing MSSA, diphtheroids, Enterococcus and group B strep.
Past Surgical History: Reports Other
Additional Past Surgical History:
Debridement left foot wound
Social History
Tobacco: Non-smoker
Alcohol: Occasional (2-3 beers a week)
Personal:
Living: With Family
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
Family History
Family History: Not pertinent
Allergies / Home Medications
Allergies reflects when Allergies were last updated in [facility].
Home Medications with original date entered in [facility]
Allergy/Medication List:
Allergies
Allergy/AdvReac Type Severity Reaction Status Date / Time
No Known Allergies Allergy Verified 12/12/24 11:11
Home Medications
atorvastatin 40 mg tablet (Lipitor) 40 mg PO DAILY 12/12/24
cholecalciferol (vitamin D3) 50 mcg (2,000 unit) capsule (Vitamin D3) 50 mcg PO DAILY 12/12/24
empagliflozin 10 mg tablet (Jardiance) 10 mg PO DAILY 12/12/24
insulin glargine 100 unit/mL (3 mL) subcutaneous pen (Basaglar KwikPen U-100 Insulin) 34 unit SC HS 12/12/24
lisinopril 2.5 mg tablet 2.5 mg PO DAILY 12/12/24
sitagliptin phosphate 50 mg-metformin 1,000 mg tablet (Janumet) 1 tab PO BID 12/12/24
amoxicillin 875 mg-potassium clavulanate 125 mg tablet 1 tab PO Q12H 10 days #20 tabs 12/15/24
collagenase clostridium histo. 250 unit/gram topical ointment (Santyl) 1 applic topical DAILY #250 grams 12/16/24
insulin aspart U-100 100 unit/mL (3 mL) subcutaneous pen 5 unit (0.05 mL) SC AC Diabetes 90 days #13.5 mL 12/16/24
Review of Systems
-
History Source: Patient
A 12 point ROS was completed and negative except as noted: Yes
Constitutional: Denies Fever or Chills
EENT: Denies Sore Throat or Runny Nose
Respiratory: Denies Cough or Trouble Breathing
Cardiac: Denies Chest Pain, Diaphoresis, Palpitations or Syncope
Abdomen/GI: Denies Abdominal Pain, Nausea, Vomiting, Diarrhea, Constipated or Bloody Stools
: Denies Dysuria, Frequency, Flank Pain or Incontinence
Musculoskeletal: Reports Joint Pain (Left great toe), Edema (Left great toe) and Other (Left great toe chronic plantar ulceration using serous drainage, dorsal part of foot with slight erythema/tracking)
Skin: Denies Itching or Rash
Neurological: Denies Dizzy or Headache
Endocrine: Reports No Symptoms
Hematologic/Lymphatic: Reports No Symptoms
Psych: Reports Calm
Physical Exam
Vital Signs
Vital Signs
Temp Pulse Resp BP Pulse Ox
97.8 F 88 20 133/71 97
01/23/25 16:40 01/23/25 16:40 01/23/25 16:40 01/23/25 20:50 01/23/25 21:33
Physical Exam
General: Pain; No Fever or Chills
HEENT: NormoCephalic, Anicteric, Moist mucous membranes, [place] Conjunctivae and No Ptosis
Respiratory: Clear; No Wheezes, Rales or Rhonchi
Cardiac: S1/S2 and Regular Rhythm; No Murmur, Rub, Gallop or Peripheral Edema
Breast: Deferred by me
GI: Soft, Non Tender, Non Distended and Normal Bowel Sounds
Rectal: Deferred by Provider
Genito-urinary: Deferred by me
Musculoskeletal: No Clubbing, No Cyanosis and Edema, Left Lower Extremity (Left great toe chronic plantar ulceration using serous drainage, dorsal part of foot with slight erythema/tracking); No Edema, Left Upper Extremity, Edema, Right Upper
Extremity or Edema, Right Lower Extremity
Skin: Warm and Dry; No Rash
Neuro: AO x 3, No Motor Deficits, Nonfocal/grossly intact, Cranial Nerves Intact and No Sensory Deficits; No Slurred Speech, Facial Droop, Tremors or Sedated
Psych: Calm
Laboratory Results
-
01/23/25 16:56
01/23/25 16:56
Laboratory Results
Lactic Acid Cancelled 01/23/25 20:45
Total Bilirubin 1.0 mg/dl (0.2-1.3) 01/23/25 16:56
AST 20 U/L (17-59) 01/23/25 16:56
ALT 26 U/L (0-50) 01/23/25 16:56
Alkaline Phosphatase 122 U/L (38-126) 01/23/25 16:56
Impression/Plan
-
Impression/plan:
Admit to MedSurg
#Nonhealing left great toe diabetic wound with osteomyelitis failure outpatient ABX
#Recent wound culture [place] growing MSSA, diphtheroids, Enterococcus and group B strep
#Recent infection was treated with nonsurgical with vancomycin/Zosyn then Augmentin
- WBC 13.2 no shift, afebrile 97.8F
-Consult Podiatry
-Consult ID
- Hold on antibiotics
-MRI left foot
- Follow CBC, CMP
X-ray left foot:Radiographic findings compatible with osteomyelitis involving the proximal and distal phalanges of the left great toe
Arterial ultrasound 12/14/2024
Peripheral arterial lower extremity ultrasound with MARY/TBI
1. 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
Toe brachial indices are considered more reliable in this situation.
2. Left toe brachial index measures 0.6 (normal greater than 0.7), compared to 0.52 on prior. Scattered calcified plaque without focal significant large vessel stenosis demonstrated.
Spectral Doppler waveforms are normal to the level of the ankle.
3. Right toe brachial index 0.72, compared to 0.81 on prior. Scattered calcified plaque without focal significant large vessel stenosis demonstrated. Spectral Doppler waveforms are normal to the level of the ankle.
#DM 2�poorly controlled
Blood sugar 354 recent HgbA1c 12.46 2024
Accu-Cheks with SSI, check HgbA1c
-Continue Janumet, Jardiance
-Continue Basaglar 34 units SQ at bedtime
-Continue insulin aspart 5 units with meals that was added to his regimen on last admission
#HTN
BP 133/71
-Continue lisinopril
#HLD
Continue atorvastatin
DVT prophylaxis
Subcu heparin
Full code
--- NOTE | 2025-01-23 21:56 | W.PN.UPDATE ---
Update Note
Progress Note Update
Patient seen in conjunction with GUSTAVO. I agree with her findings on history and physical. I concur with assessment and plan unless stated otherwise.
This is a 49-year-old male with past medical history of insulin-dependent diabetes, history of left great toe diabetic foot ulcer status post management here a few weeks ago who now presents with increasing drainage and discomfort in the left lower
extremity great toe.
When patient was admitted at that time he was not found to have osteomyelitis, the wound was treated with broad-spectrum antibiotics initially including Vanco and Zosyn and then narrowed to Augmentin at time of discharge. He is superficial cultures
did grew polymicrobial with MSSA, E faecalis and strep agalactiae. He completed course of antibiotics.
On examination of the wound in comparison to prior it appears to be about the same degree of opening and ulceration. There is surrounding erythema with some streaking erythema to the ankle on the on the dorsum of the foot. He has not had any
fevers or chills.
In the emergency department, blood pressure was 183/70 with a pulse rate of 88 and temperature of 97.8.
X-ray shows radiographic findings compatible with osteomyelitis involving the proximal and distal phalanges of the left great toe.
White count of 13.2, CBC otherwise unremarkable, electrolytes BUN/creatinine normal. Glucose elevated at 354.
Assessment and plan
Diabetic foot infection with likely osteomyelitis involving the distal phalanx of the left great toe. No systemic signs of infection.
-Admit to [facility]
-MRI foot
-Podiatry consult, ID consult
- was seen by vascular on prior admission and felt not to require vascular intervention at that time
-Will hold off on antibiotics pending surgical evaluation, blood cultures febrile and then start antibiotics
-Pain control
Uncontrolled Diabetes - non compliant
- Continue management with Lantus, aspart ac and sliding scale insulin
- Continue oral Jardiance/sitagliptin/metformin
DVT PPX - lovenox ppx
Code status - Full Code
[2025-01-23] MEDS: PERCOCET 5/325 1 TABLET PO (22:33)
[2025-01-23 22:47] LABS: Glucose - Point of Care 341 mg/dl (70-99)
[2025-01-23 23:17] VITALS: BP 121/80
[2025-01-24 00:20] VITALS: BP 134/80; BMI 28.0
[2025-01-24 00:26] LABS: Glucose - Point of Care 281 mg/dl (70-99)
[2025-01-24 07:00] VITALS: BP 126/79
[2025-01-24 07:08] LABS: Glucose - Point of Care 222 mg/dl (70-99)
--- NOTE | 2025-01-24 08:01 | W.PN.UPDATE ---
Update Note
Progress Note Update
49M w/ Left hallux cellulitis and likely OM
- will obtain MRI and janki
- discussed treatment options with patient, at this time would rather pursue suppressive abx vs hallux amputation (possibly )
- continue abx
- nwb LLE
[2025-01-24] MEDS: HEPARIN 5000 UNITS SC ×2 (08:27→20:46)
[2025-01-24 09:00] LABS: Glycohemoglobin (HgbA1c) 11.0 % (4.0-5.6)
[2025-01-24] MEDS: NOVOLOG FLEXPEN-LOW RESISTANCE 2 UNITS SC (09:04)
[2025-01-24 09:41] LABS: Hematocrit 37.8 % (39.0-52.0); Hemoglobin 12.7 g/dL (13.0-18.0); Mean Corp Hgb Conc. 33.6 g/dL (33.0-37.0); Mean Corpuscular Volume 85.9 fL (80.0-94.0); Nucleated Red Blood Cells % 0 % (-); Platelet Count 401 10^3/uL (130-400); Red Cell Dist. Width 11.9 % (11.5-14.5)
[2025-01-24 09:51] VITALS: BP 132/67; PULSE 72; O2SAT 99
--- NOTE | 2025-01-24 10:00 | PTOTSP ---
Pt is able to get OOB and ambulate in room maintaining heel weightbearing LLE. No skilled PT needed at this time. Will sign off. Re-consult if pt to have surgery and/or nonweightbearing at [facility].
[2025-01-24 10:31] LABS: ALT (SGPT) 25 U/L (0-50); AST (SGOT) 17 U/L (17-59); Albumin 3.8 g/dl (3.5-5.0); Alkaline Phosphatase 138 U/L (38-126); Blood Urea Nitrogen 21 mg/dl (9-20); Calcium 9.1 mg/dl (8.4-10.2); Carbon Dioxide 26 mmol/L (22-30); Chloride 103 mmol/L (98-107); Estimated Creatinine Clearance 109 ml/min; Glucose 219 mg/dl (70-99); Potassium 4.4 mmol/L (3.5-5.1); Sodium 136 mmol/L (135-145); Total Protein 7.3 g/dl (6.3-8.2); eGFR > 60.00
--- NOTE | 2025-01-24 10:40 | PHA.VAN.IN ---
Assessment
- Assessment
Renal Function: Appears similar to baseline
Concomitant Antimicrobials: piperacillin/tazobactam
AUC Dosing Plan
- Dosing Variables
Dosing Weight (kg): 84
Dosing CrCl (ml/min): 109
Vd coefficient (L/kg): 0.7
- Empiric Dosing
Initial / Loading Dose: 2000mg - administration pending
Maintenance Regimen: Vanc 1250mg Q12H starting 01/25 600
Estimated AUC (mcg*h/mL): 480
Estimated Peak (mcg*h/mL): 31
Estimated Trough (mcg/ml): 11.6
Estimated Half Life (H): 7.3
- Monitoring
No levels ordered at this time: consider levels in next few days
Pharmacokinetics Vancomycin I
- -
Patient Age: 49
Patient Sex: Male
Vancomycin Day #: 1
Indication: Diabetic Foot
Requesting Provider: Dr. Lua
Pertinent Antimicrobial Allergies:
NKDA
Height / Weight:
Height 5 ft 8 in
Actual Weight 83.659 kg
Pertinent Past Medical History: DM2
- Vital Signs / Lab Results
Temp Pulse Resp BP Pulse Ox
98.3 F 74 16 126/79 96
01/24/25 07:00 01/24/25 07:00 01/24/25 07:00 01/24/25 07:00 01/24/25 07:00
Lab Results - Hematology
01/23/25 01/24/25
16:56 06:22
WBC 13.2 H 15.0 H
Lab Results - Chemistry
01/23/25 01/24/25 01/24/25
16:56 06:22 09:17
BUN 27 H Cancelled 21 H
Creatinine 1.1 Cancelled 0.8
Estimated Creat Clear Cancelled 109
Albumin 4.1 Cancelled 3.8
01/23/25 01/23/25
16:56 20:45
Lactic Acid 1.7 Cancelled
Microbiology Results
01/23/25 21:43 Gram Stain - Preliminary
Toe
[2025-01-24] MEDS: VANCOCIN 540 MG IV (10:47)
[2025-01-24 11:48] LABS: Glucose - Point of Care 294 mg/dl (70-99)
[2025-01-24] MEDS: NOVOLOG FLEXPEN-LOW RESISTANCE 3 UNITS SC (12:40)
[2025-01-24] MEDS: ZOSYN 50 IV ×3 (12:40→23:01)
--- NOTE | 2025-01-24 13:44 | CON.ID ---
Consultation
-
Date/Time Consultation Requested: January 23, 20258
Date/Time Consultation Performed: January 24, 2025 1345
Requesting Provider: GUSTAVO Ferguson
Performing Provider: Dr. Esperanza Garnett
Reason for Consultation: Left great toe osteomyelitis
Chief Complaint / Past History
Chief Complaint
Left great toe swelling and red
History of Present Illness
49-year-old male with history of diabetes mellitus who presented to the ED yesterday due to draining. He has chronic left great toe nonhealing ulcer and recently hospitalized December 12 to December 16 with foul-smelling left great toe infected wound.
Foot x-ray showed soft tissue swelling. He was seen by podiatry and vascular surgeon who recommended no surgical intervention. He received 4 days of cefepime in the hospital and discharged to home on 10 days of Augmentin. However he had
recurrence of left great toe swelling, redness, wound drainage. He denies fevers or chills he was placed on Augmentin outpatient without improvement. He was therefore sent to the ER. Afebrile in the ER. White count 13.2 increased to 15. Foot
x-ray now shows osteomyelitis of the proximal and distal phalanges. He is currently on vancomycin and Zosyn. Hemoglobin A1c 11.
Past History
Additional Past Medical History:
Diabetes mellitus
Dyslipidemia
HTN
Chronic left great toe diabetic ulcer
Allergy History:
No Known Allergies Allergy (Verified 12/12/24 11:11)
Medications Reviewed: Yes
Current Antibiotics:
Vancomycin
Zosyn
Social History
Tobacco: Non-Smoker
Alcohol: Occasional
Drug: None
Personal:
Living: With Family
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
Family History
Family History: Not Pertinent
Review of Systems
Review of Systems
General: Negative Fever, Chills or Change in Appetite
HEENT: Negative Sinus Problems or Headache
Cardiovascular: Negative Chest Pain or Dyspnea
Respiratory: Negative Dyspnea or Cough
Gasteroenterology: Negative Nausea, Vomiting or Diarrhea
Genital / Urological: Negative Dysuria or Flank Pain
Endocrine: Negative Weakness
All systems: All other systems were reviewed and were negative
Vital Signs
Temp Pulse Resp BP Pulse Ox
98.3 F 74 16 126/79 96
01/24/25 07:00 01/24/25 07:00 01/24/25 07:00 01/24/25 07:00 01/24/25 09:15
Physical Exam
Physical Exam
Constitutional: No Acute Distress
Eyes: No Conjunctival Hemorrhage and Sclera Anicteric
Cardiovascular: Regular Rate and S1/S2
Pulmonary: Clear
Gastrointestinal: Soft, Non Tender, Non Distended and Normal Bowel Sounds
Genito-Urinary: Negative CVA Tenderness
Extremities: Negative Edema
Wound: Other (Left 1st toe + edema, +wound distally with small amt purulent drainage; plantar side with large wound. )
Lab / Diagnostic Study Results
01/24/25 06:22
01/24/25 09:17
Abs Immat Gran (auto) 0.2 10^3/uL (0-0.05) H 01/24/25 06:22
Absolute Neuts (auto) 10.7 10^3/uL (1.4-6.5) H 01/24/25 06:22
Absolute Lymphs (auto) 2.4 10^3/uL (1.2-3.4) 01/24/25 06:22
Absolute Monos (auto) 1.3 10^3/uL (0.1-0.6) H 01/24/25 06:22
Absolute Basos (auto) 0.1 10^3/uL (0-0.2) 01/24/25 06:22
Immature Gran % 1.0 % (0-0.5) H 01/24/25 06:22
Neutrophils % 71.5 % (42.2-75.2) 08/19/25 06:22
Lymphocytes % 16.1 % (20.5-51.1) L 01/24/25 06:22
Monocytes % 8.9 % (1.7-9.3) 01/24/25 06:22
Eosinophils % 1.9 % (0-6) 01/24/25 06:22
Basophils % 0.6 % (0-2) 01/24/25 06:22
Lactic Acid Cancelled 01/23/25 20:45
Microbiology Results
Micro:
01/23/25 21:43 Wound Culture - Pending
Toe Gram Stain - Preliminary
01/24/25 00:57 MRSA Screen - Pending
Nose
01/23/25 21:43 Blood Culture - Pending
Blood/Venous
01/23/25 16:56 Blood Culture - Pending
Blood/Venous
01/23/25 left foot XRAY: Radiographic findings compatible with osteomyelitis involving the proximal and distal phalanges of the left great toe.
Assessment / Plan
# Left great to subacute osteomyelitis
# Chronic non-healing left hallux diabetic ulcer, now infected
# Leukocytosis
# Uncontrolled DM, HBA1c 11
- For MRI
- I discussed with patient management options. I recommend toe amputation for surgical cure. There is high failure rate w/ conservative management with 6 weeks IV abx alone.
- Continue Zosyn.
- DC Vancomycin.
-Follow wbc
- Discussed importance of glycemic control.
--- NOTE | 2025-01-24 14:50 | W.PN.HOSP.TC ---
Today's Communication/Plan
-
Started antibiotics, Lantus, lisinopril, atorvastatin
Assessment / Plan
Assessment / Plan
Diabetic foot infection with likely osteomyelitis involving the distal phalanx of the left great toe. No systemic signs of infection.
-MRI foot pending
-Podiatry consult, ID consult
Resume vancomycin and Zosyn
-Pain control
Uncontrolled Diabetes - non compliant
- Start Lantus, aspart ac and sliding scale insulin
- Hold oral Jardiance/sitagliptin/metformin inpatient
HTN
BP controlled
-Stop lisinopril
HLD
*Atorvastatin
DVT PPX -HSQ
Code status - Full C
Anticipated Discharge: > 48 hours
Subjective/Interval History
-
Date of Service: January 24, 2025
Patient feeling well denies issues overnight
Objective Data
-
Labs:
Laboratory Results
01/24/25 01/24/25
06:22 09:17
WBC 15.0 H
Hgb 12.7 L
Hct 37.8 L
Plt Count 401 H
Sodium Cancelled 136
Potassium Cancelled 4.4
Chloride Cancelled 103
Carbon Dioxide Cancelled 26
BUN Cancelled 21 H
Creatinine Cancelled 0.8
Glucose Cancelled 219 H
Calcium Cancelled 9.1
Total Bilirubin Cancelled 1.2
AST Cancelled 17
ALT Cancelled 25
Alkaline Phosphatase Cancelled 138 H
Vital Signs:
Vital Signs
Temp Pulse Resp BP Pulse Ox
98.3 F 74 16 126/79 96
01/24/25 07:00 01/24/25 07:00 01/24/25 07:00 01/24/25 07:00 01/24/25 09:15
Review of Systems
-
All other systems: Reviewed and negative
Physical Exam
-
General: No Apparent Distress
HEENT: Moist Mucous Membranes, Anicteric and PERRLA
Respiratory: Clear to Auscultation; Negative Wheezes, Rales or Rhonchi
Cardiac: Regular Rhythm and S1/S2; Negative Murmur, Rub or Gallop
GI: Soft, Nontender, Nondistended and Normal Bowel Sounds
Musculoskeletal: No Edema and Other (Left foot wrapped in gauze)
Skin: Warm and Dry; Negative Rash, Ulcers or Lesions
Neuro: Awake and AO x 3
Hematologic / Lymphatic: No Lymphadenopathy
Psych: Calm
Data Reviewed
-
CT Scan: Report Reviewed by me
Labs: Labs Reviewed by me and Discussed with Patient
[2025-01-24 15:00] VITALS: BP 137/64
--- NOTE | 2025-01-24 16:58 | CM ---
Alert awake oriented patient who speaks some Chinese and French He lives with his Lexy in a 1 story home with 3 step to enter.He is independent in driving and in all activities of daily living.He was offered VN he declined need.He said he has
no insurance .LM with [facility].
No VN hx / No SNF history
Pharmacy [facility]
PCP Paris Samuel
PLAN Home Declined VN
[2025-01-24 17:06] LABS: Glucose - Point of Care 180 mg/dl (70-99)
[2025-01-24] MEDS: NOVOLOG FLEXPEN-LOW RESISTANCE 1 UNITS SC (17:12)
[2025-01-24] MEDS: NOVOLOG FLEXPEN 5 UNITS SC (17:12)
[2025-01-24] MEDS: LIPITOR 20 MG PO (17:12)
[2025-01-24] MEDS: ROXICODONE 5 MG PO (20:45)
[2025-01-24 21:18] LABS: Glucose - Point of Care 192 mg/dl (70-99)
[2025-01-24] MEDS: LANTUS SC (22:32)
[2025-01-24] MEDS: LANTUS 0.1 UNITS SC (22:52)
[2025-01-24 23:41] VITALS: BP 107/72
[2025-01-25] VITALS (9 sets, daily range): BP systolic 95–138; BP diastolic 55–77
--- NOTE | 2025-01-25 02:49 | DOWNTIME ---
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 Downtime documentation of patient's care, including medication administrations, has been reconciled in the electronic record per guidelines. Refer to the
patient's paper chart under the miscellaneous tab to see printed paper medication records and downtime forms.
[2025-01-25] MEDS: ZOSYN 50 IV ×4 (05:58→23:33)
[2025-01-25 06:03] LABS: Glucose - Point of Care 166 mg/dl (70-99)
[2025-01-25] MEDS: NOVOLOG FLEXPEN-LOW RESISTANCE 1 UNITS SC ×2 (06:30→11:57)
[2025-01-25 07:30] LABS: Hematocrit 41.3 % (39.0-52.0); Hemoglobin 13.6 g/dL (13.0-18.0); Mean Corp Hgb Conc. 32.9 g/dL (33.0-37.0); Mean Corpuscular Volume 86.4 fL (80.0-94.0); Nucleated Red Blood Cells % 0 % (-); Platelet Count 430 10^3/uL (130-400); Red Cell Dist. Width 11.8 % (11.5-14.5)
[2025-01-25 08:08] LABS: ALT (SGPT) 22 U/L (0-50); AST (SGOT) 20 U/L (17-59); Albumin 3.4 g/dl (3.5-5.0); Alkaline Phosphatase 125 U/L (38-126); Blood Urea Nitrogen 19 mg/dl (9-20); Calcium 9.0 mg/dl (8.4-10.2); Carbon Dioxide 25 mmol/L (22-30); Chloride 101 mmol/L (98-107); Estimated Creatinine Clearance 97 ml/min; Glucose 159 mg/dl (70-99); Potassium 4.2 mmol/L (3.5-5.1); Sodium 135 mmol/L (135-145); Total Protein 6.7 g/dl (6.3-8.2); eGFR > 60.00
[2025-01-25] MEDS: HEPARIN 5000 UNITS SC ×2 (08:26→19:33)
[2025-01-25] MEDS: NOVOLOG FLEXPEN SC ×3 (08:26→16:43)
[2025-01-25] MEDS: ZESTRIL 2.5 MG PO (08:27)
--- NOTE | 2025-01-25 10:56 | CM ---
Continues on IV antibiotics.
LM with [facility] no insurance.
PCP is Paris Smallman Virgil
PLAN Home with no anticipated needs
[2025-01-25 11:57] LABS: Glucose - Point of Care 152 mg/dl (70-99)
--- NOTE | 2025-01-25 12:00 | W.PN.HOSP.TC ---
Today's Communication/Plan
-
OR with podiatry
Antibiotics with ID
Assessment / Plan
Assessment / Plan
Osteomyelitis L great toe
Diabetic foot infection
-MRI foot: Osteomyelitis of the entire first proximal phalanx and first distal phalanx. Septic arthritis of the first interphalangeal joint, which appears contiguous with a wound of the medial first toe at the level of the interphalangeal joint.
-Podiatry consult, ID consult
Cont Zosyn per ID
Going to OR with podiatry today
-Pain control
Uncontrolled Diabetes - non compliant
- Start Lantus, aspart ac and sliding scale insulin. rec'd 10 units last night as was NPO
- Hold oral Jardiance/sitagliptin/metformin inpatient
BG better controlled today, resume lantus 20 untis qhs
HTN
BP controlled
-Stop lisinopril
HLD
Atorvastatin
DVT PPX -HSQ
Code status - Full C
Anticipated Discharge: > 48 hours
Subjective/Interval History
-
Date of Service: January 25, 2025
Patient feeling well and denies any acute issues overnight. He is going to the OR today
Objective Data
-
Labs:
Laboratory Results
01/25/25
06:22
WBC 13.4 H
Hgb 13.6
Hct 41.3
Plt Count 430 H
Sodium 135
Potassium 4.2
Chloride 101
Carbon Dioxide 25
BUN 19
Creatinine 0.9
Glucose 159 H
Calcium 9.0
Total Bilirubin 1.0
AST 20
ALT 22
Alkaline Phosphatase 125
Vital Signs:
Vital Signs
Temp Pulse Resp BP Pulse Ox
98.4 F 73 16 113/66 95
01/25/25 07:00 01/25/25 08:27 01/25/25 07:00 01/25/25 08:27 01/25/25 07:00
I&O
01/24/25 01/25/25 01/26/25
06:59 06:59 06:59
Intake Total 1608 / 1608
Balance 1608 / 1608
Review of Systems
-
All other systems: Reviewed and negative
Physical Exam
-
General: No Apparent Distress
HEENT: Moist Mucous Membranes, Anicteric and PERRLA
Respiratory: Clear to Auscultation; Negative Wheezes, Rales or Rhonchi
Cardiac: Regular Rhythm and S1/S2; Negative Murmur, Rub or Gallop
GI: Soft, Nontender, Nondistended and Normal Bowel Sounds
Musculoskeletal: No Edema and Other (Left foot wrapped in gauze)
Skin: Warm and Dry; Negative Rash, Ulcers or Lesions
Neuro: Awake and AO x 3
Hematologic / Lymphatic: No Lymphadenopathy
Psych: Calm
Data Reviewed
-
CT Scan: Report Reviewed by me
Labs: Labs Reviewed by me and Discussed with Patient
--- NOTE | 2025-01-25 13:59 | PTCARENOTE ---
Pt left the floor with transport to the OR for a procedure on his left great toe
--- NOTE | 2025-01-25 14:22 | W.PN.ID1 ---
Date of Service
Date of Service: January 25, 2025
Today's Communication
Recommend toe amputation.
Assessment / Plan
# Left great toe osteomyelitis
# Chronic non-healing left hallux diabetic ulcer
# Leukocytosis
# Uncontrolled DM, HBA1c 11
- Recommend toe amp; pt agreeable.
- Continue Zosyn.
-Trend WBC.
- Tight glycemic control.
Chief Complaint
-: Other (Osteo)
Subjective / Review of Systems
Going to surgery.
Vital Signs / Physical Exam
Vital Signs
Vital Signs
Temp Pulse Resp BP Pulse Ox
98.4 F 73 16 113/66 95
01/25/25 07:00 01/25/25 08:27 01/25/25 07:00 01/25/25 08:27 01/25/25 12:23
Physical Exam
Constitutional: No Acute Distress
Cardiovascular: Regular Rate and S1/S2
Pulmonary: Clear
Gastrointestinal: Soft, Non Tender and Non Distended
Neurological: AO x 3
Objective Data
Lab Data
Lab Results
01/25/25 06:22
01/25/25 06:22
Estimated Creat Clear 97 ml/min 01/25/25 06:22
Lactic Acid Cancelled 01/23/25 20:45
Total Bilirubin 1.0 mg/dl (0.2-1.3) 01/25/25 06:22
AST 20 U/L (17-59) 01/25/25 06:22
ALT 22 U/L (0-50) 01/25/25 06:22
Alkaline Phosphatase 125 U/L (38-126) 01/25/25 06:22
Most recent labs reviewed.
Micro Results:
01/23/25 21:43 Wound Culture - Preliminary
Toe Gram Stain - Preliminary
01/24/25 00:57 MRSA Screen - Final
Nose No Methicillin Resistant Staphylococcus aureus isolated.
01/23/25 21:43 Blood Culture - Preliminary
Blood/Venous No Growth in 24 hours- Final report to follow
01/23/25 16:56 Blood Culture - Preliminary
Blood/Venous No Growth in 24 hours- Final report to follow
01/24/25 MRI LLE: Osteomyelitis of the entire first proximal phalanx and first distal phalanx. Septic arthritis of the first interphalangeal joint, which appears contiguous with a wound of the medial first toe at the level of the interphalangeal
joint.
01/23/25 left foot XRAY: Radiographic findings compatible with osteomyelitis involving the proximal and distal phalanges of the left great toe.
--- NOTE | 2025-01-25 15:40 | CON.SURG ---
Surgical Consultation
-
CONSULTING PHYSICIAN: Mauri Larkin DPM
REFERRING PHYSICIAN: GUSTAVO Ferguson
DATE/TIME OF REQUEST: 01/23/2025 at 22:11
DATE/TIME OF CONSULTATION: 01/23/2025 at 22:11
SUBJECTIVE: The patient is a 49 year old male with past medical
history of uncontrolled diabetes, hypertension, hyperlipidemia, and
a chronic left great toe wound for one year. The patient states
that he has noticed increased drainage and discomfort to his left
big toe over the last several weeks. He had previously been on
antibiotics as well as recently hospitalized for left big toe
infection when he received antibiotics. He has noticed increased
purulent drainage and possible streaking to the anterior part of
his foot. He denies any past surgical management. Additionally adds
that he has seen a foot doctor in the past, but does not recall
their name or practice.
OBJECTIVE: The patient is in no acute distress, resting in bed
comfortably. Extremity exam left foot: DP pulse palpable. PT
nonpalpable. Sensation absent and stocking glove distribution.
There is rebirth to the left hallux. Does not dissipate with
elevation. Additionally swollen. There is an ulceration at the
plantar hallux measuring approximately 2.5 cm x 1.5 cm x 1.2 cm. It
does probe to bone. At the plantar and dorsal aspects of the 1st
distal phalanx, there is a sanguineous purulent drainage with
malodor. Gross motor function is intact to all pedal digits.
LABORATORY DATA: White blood count is downtrending today. It is
10.8. Hemoglobin is 12.7. Previous hemoglobin A1c 11% on 01/24/2025.
IMAGING: Radiographic examination left foot. There is cortical break
of the proximal and first distal phalanx. No soft tissue emphysema on
x-ray. Edema thought to increase soft tissue density through the
hallux.
MRI Left Foot: Osteomyelitis of the entire first proximal phalanx and first distal phalanx.
Septic arthritis of the first interphalangeal joint, which appears contiguous with a wound
of the medial first toe at the level of the interphalangeal joint.
ASSESSMENT: The patient is a 49 year old male without prior
amputation who is an uncontrolled diabetic with diabetic food
ulceration to the left hallux, confirmed for underlying
osteomyelitis as well as overlying cellulitis.
PLAN: Left foot MRI shows osteomyelitis of the hallux with septic arthritis
at the first IPJ. We discussed conservative and surgical treatment options,
however due to the extent of his infection, partial 1st ray amputation was
recommended. We did discuss his elevated HbA1c of 11% and his risk for
further infection, loss of limb, and loss of life. Plan for left partial 1st ray
amputation 01/25/2025.
--- NOTE | 2025-01-25 15:52 | W.PN.UPDATE ---
Update Note
Progress Note Update
49M s/p Left partial 1st ray amputation
- strict NWB LLE
- abx per ID, tissue culture and bone biopsy
- Dressings to remain C/D/I
- will reassess on AM rounds
[2025-01-25 16:00] LABS: Glucose - Point of Care 143 mg/dl (70-99)
[2025-01-25] MEDS: NOVOLOG FLEXPEN-LOW RESISTANCE SC (16:43)
[2025-01-25 17:23] LABS: Glucose - Point of Care 132 mg/dl (70-99)
[2025-01-25] MEDS: LIPITOR 20 MG PO (17:27)
[2025-01-25 21:35] LABS: Glucose - Point of Care 251 mg/dl (70-99)
[2025-01-25] MEDS: LANTUS 0.2 UNITS SC (21:50)
[2025-01-26 03:11] VITALS: BP 132/78
[2025-01-26] MEDS: ZOSYN 50 IV ×2 (06:03→11:24)
--- NOTE | 2025-01-26 07:17 | W.PN.UPDATE ---
Update Note
Progress Note Update
49M s/p Left partial 1st ray amputation, doing well this AM no pain
- strict NWB LLE
- transition to PO abx per ID recs, culture sent to micro
- Dressings to remain C/D/I
- may follow up in office
[2025-01-26 07:20] VITALS: BP 116/57
[2025-01-26 07:26] LABS: Hematocrit 36.8 % (39.0-52.0); Hemoglobin 12.2 g/dL (13.0-18.0); Mean Corp Hgb Conc. 33.2 g/dL (33.0-37.0); Mean Corpuscular Volume 85.6 fL (80.0-94.0); Nucleated Red Blood Cells % 0 % (-); Platelet Count 410 10^3/uL (130-400); Red Cell Dist. Width 11.7 % (11.5-14.5)
[2025-01-26 07:51] LABS: Glucose - Point of Care 168 mg/dl (70-99)
[2025-01-26 08:14] LABS: ALT (SGPT) 20 U/L (0-50); AST (SGOT) 16 U/L (17-59); Albumin 3.2 g/dl (3.5-5.0); Alkaline Phosphatase 129 U/L (38-126); Blood Urea Nitrogen 16 mg/dl (9-20); Calcium 8.4 mg/dl (8.4-10.2); Carbon Dioxide 26 mmol/L (22-30); Chloride 103 mmol/L (98-107); Estimated Creatinine Clearance 97 ml/min; Glucose 172 mg/dl (70-99); Potassium 4.2 mmol/L (3.5-5.1); Sodium 134 mmol/L (135-145); Total Protein 6.2 g/dl (6.3-8.2); eGFR > 60.00
[2025-01-26] MEDS: HEPARIN 5000 UNITS SC (09:30)
[2025-01-26] MEDS: NOVOLOG FLEXPEN 5 UNITS SC ×2 (09:31→13:55)
[2025-01-26] MEDS: NOVOLOG FLEXPEN-LOW RESISTANCE 1 UNITS SC ×2 (09:32→13:54)
[2025-01-26] MEDS: ROXICODONE 5 MG PO (09:51)
[2025-01-26 11:10] VITALS: BP 102/56
[2025-01-26] MEDS: TYLENOL 650 MG PO (11:24)
--- NOTE | 2025-01-26 11:26 | W.PN.ID1 ---
Date of Service
Date of Service: January 26, 2025
Today's Communication
- Can transition Zosyn to cephalexin 1000mg po q8h x 2 weeks.
Assessment / Plan
# Left great toe osteomyelitis
# Chronic non-healing left hallux diabetic ulcer
# Leukocytosis, improving
# Uncontrolled DM, HBA1c 11
- 01/25/25 s/p left first partial ray amp.
- Suspect surgical cure.
- Can transition Zosyn to cephalexin 1000mg po q8h x 2 weeks.
- Tight glycemic control.
Chief Complaint
-: Other (Osteo)
Subjective / Review of Systems
No complaints.
Vital Signs / Physical Exam
Vital Signs
Vital Signs
Temp Pulse Resp BP Pulse Ox
98.3 F 70 16 116/57 98
01/26/25 07:20 01/26/25 07:20 01/26/25 07:20 01/26/25 07:20 01/26/25 07:20
Physical Exam
Constitutional: No Acute Distress and Comfortable
Pulmonary: Clear
Gastrointestinal: Soft, Non Tender and Non Distended
Wound: Other (left foot dressing dry)
Neurological: AO x 3
Objective Data
Lab Data
Lab Results
01/26/25 06:30
01/26/25 06:30
Estimated Creat Clear 97 ml/min 01/26/25 06:30
Lactic Acid Cancelled 01/23/25 20:45
Total Bilirubin 0.8 mg/dl (0.2-1.3) 01/26/25 06:30
AST 16 U/L (17-59) L 01/26/25 06:30
ALT 20 U/L (0-50) 01/26/25 06:30
Alkaline Phosphatase 129 U/L (38-126) H 01/26/25 06:30
Most recent labs reviewed.
Micro Results:
01/23/25 21:43 Blood Culture - Preliminary
Blood/Venous No Growth in 48 hours- Final report to follow
01/25/25 15:41 Wound Culture - Pending
Toe Gram Stain - Preliminary
01/23/25 16:56 Blood Culture - Preliminary
Blood/Venous No Growth in 48 hours- Final report to follow
01/25/25 15:42 Anaerobic Culture - Pending
Toe
01/23/25 21:43 Wound Culture - Preliminary
Toe Gram Stain - Preliminary
01/24/25 00:57 MRSA Screen - Final
Nose No Methicillin Resistant Staphylococcus aureus isolated.
01/24/25 MRI LLE: Osteomyelitis of the entire first proximal phalanx and first distal phalanx. Septic arthritis of the first interphalangeal joint, which appears contiguous with a wound of the medial first toe at the level of the interphalangeal
joint.
01/23/25 left foot XRAY: Radiographic findings compatible with osteomyelitis involving the proximal and distal phalanges of the left great toe.
Care Review
Plan reviewed with: Physician (Dr. Lua)
[2025-01-26 11:56] LABS: Glucose - Point of Care 191 mg/dl (70-99)
--- NOTE | 2025-01-26 13:32 | CM ---
entered order for discharge.
Post op left hallax amputation yesterday.
Audra from [facility] saw patient for no insurance.
Spoke with María from [facility] aware of his dc today.
Spoke with Linda daleyt [phone] she will be driving pt home today.
Pt confirms he has accu check machine and insulin at home.
Pt NWB LLE as per Linda Pt has rolling walker and wheel chair to home. Instructed dgt to bring Walker in car .
Pt said [facility] said antibiotic $14.00 and he can afford .
notified pt needs OUT of Work script.
PLAN Home with no anticipated needs
--- NOTE | 2025-01-26 15:01 | W.DCSUMMARY ---
Discharge Summary
Discharge Data
Date of Admission: 01/23/25
Date of Discharge: 01/26/25
-
Pending Results: Yes (OR cultures)
Hospital Course
Attending physician on day of discharge:
Genevieve Lua MD
Admission diagnosis:
Diabetic foot infection
Discharge diagnosis:
Acute osteomyelitis/septic arthritis of left foot
Secondary diagnoses:
DM2
HTN
HLD
Consultations:
Podiatry
Infectious disease
Procedures:
Left partial 1st ray amputation
Hospital course:
49M with diabetes, HTN, HLD, noncompliant with meds, presented with left great toe pain and open wound with purulent drainage. He had MRI which showed Osteomyelitis of the entire first proximal phalanx and first distal phalanx. Septic arthritis of
the first interphalangeal joint, which appears contiguous with a wound of the medial first toe at the level of the interphalangeal joint. He was placed on empiric IV antibiotics with Zosyn, and then taken to operating room with Dr. Carr, he
underwent left partial first ray amputation. OR cultures are pending. He was discharged with strict NWB of LLE, rolling walker, and course of cephalexin as per ID. New prescriptions for Lantus, lispro, atorvastatin, metformin were sent as well.
His blood pressure was low when lisinopril was given, so this was stopped. He is to follow-up with a PCP, and podiatry.
Physical exam on discharge:
Gen: NAD
HEENT: PERRLA, EOMI, MMM, neck supple
Cards: RRR, no M/G/R
Resp: Lungs CTAB, no W/R/R
GI: soft, NT/ND/NABS
MSK: No edema
Skin: warm and dry, LLE in gauze, C/D/I
Heme: No LAD
Psych: Calm
Neuro: AAOx3
Discharge disposition:
Home
Discharge Plan
-
Patient Disposition: Home (Routine Discharge)
Discharge Diagnosis/Procedures: Osteomyelitis
Diet: Diabetic, Carb Controlled
Activity: Do not bear weight L leg and With Walker
Driving Restrictions: Not until seen by your Dr
Bathing Restrictions: Keep dressing clean, dry, and intact
Wound Care: Keep dressing clean, dry, and intact.
Activity Restrictions/Additional Instructions:
Do not put ANY weight on the left foot or leg. Use a walker or even a wheelchair to get around. Keep your dressing very clean. Follow up with your surgeon in the office. Finish the entire course of antibiotics. Start seeing a primary care physician
-You can go to [facility] again or try to call [facility], Address: [address] [place] [address] [address], [place] [address],
Instructions: Osteomyelitis in adults
Referrals:
[facility] [Outside] - in one to two weeks
[facility] [Outside] - in one week
Referral Note: Establish PCP
[facility] [Active, Orthopedics] - in one to two weeks
Prescriptions:
New
atorvastatin 20 mg Tablet
20 mg PO QPM Qty: 30 0RF
oxycodone 5 mg Tablet
5 mg PO Q4HPRN PRN (Reason: moderate pain) Qty: 30 0RF
(DME) Accu-Chek Guide test strips Strip
Qty: 100 0RF
Rx Instructions:
As Directed
(DME) lancets [Accu-Chek Softclix Lancets] Misc
Qty: 200 0RF
Rx Instructions:
As Directed
insulin lispro [Humalog KwikPen Insulin] 100 unit/mL Insulin Pen
5 unit SC AC Qty: 5 0RF
insulin glargine [Basaglar KwikPen U-100 Insulin] 100 unit/mL (3 mL) Insulin Pen
20 unit SC HS Qty: 5 0RF
(DME) blood-glucose meter [Accu-Chek Guide Glucose Meter] Misc
Qty: 1 0RF
Rx Instructions:
As Directed
cephalexin 500 mg capsule
1,000 mg PO Q8H 14 Days Qty: 84 0RF
(DME) Rolling walker
See Rx Instructions .ROUTE .MEDSUPPLY Qty: 1 0RF
Rx Instructions:
Dx: LLE osteomyelitis
Continued
metformin 1,000 mg Tablet
1,000 mg PO BID Qty: 60 0RF
Discontinued
atorvastatin [Lipitor] 40 mg Tablet
40 mg PO HS
lisinopril 2.5 mg Tablet
2.5 mg PO DAILY
Janumet 50-1,000 mg Tablet
1 tab PO BID
insulin glargine [Basaglar KwikPen U-100 Insulin] 100 unit/mL (3 mL) Insulin Pen
34 unit SC HS
cholecalciferol (vitamin D3) [Vitamin D3] 50 mcg (2,000 unit) Capsule
50 mcg PO DAILY
insulin aspart U-100 100 unit/mL (3 mL) Insulin Pen
5 unit SC AC 90 Days Qty: 13.5 0RF
Jardiance 25 mg Tablet
25 mg PO DAILY
Santyl 250 unit/gram ointment
1 applic topical DAILY
amoxicillin-pot clavulanate 875-125 mg tablet
1 tab PO Q12H
Discharge Orders:
Discharge Patient (As Directed); Ordered 01/26/25
Ordered By: Genevieve Lua
Discharge Date and Time
Print Language: PERSIAN
--- NOTE | 2025-01-26 23:16 | OR.RPT ---
Operative Report
Operative Report
Operative Report
Patient:�Chito Simmons
MRN:�[id number]
Date of Surgery:�01/25/2025
Surgeon:�Mauri Larkin DPM
Assistants:�Mauri Brunson DPM
Preoperative Diagnosis:
Chronic plantar hallux wound with purulent drainage, left foot
MRI-confirmed osteomyelitis involving the entire hallux, left foot
Postoperative Diagnosis:
Same as preoperative
Procedure Performed:
Partial first ray amputation, left foot CPT 54659
Anesthesia:�Monitored anesthesia care with local block ( 0.5% bupivacaine plain)
Estimated Blood Loss:�<50 cc
Specimens:
Left hallux and distal portion of first metatarsal sent for pathology and microbiology
Complications:�None
Indications for Procedure:
The patient is a 49 year-old male presenting with a chronic, draining plantar wound under the hallux. MRI demonstrated diffuse osteomyelitis throughout the hallux, extending to the proximal phalanx. Given the extent of infection and purulence,
conservative measures were unlikely to succeed. The risks, benefits, and alternatives of partial first ray amputation were discussed, including possible need for further proximal amputation. Informed consent was obtained.
Description of Procedure:
The patient was brought to the operating room, placed supine, and sedation was induced. After adequate anesthesia, the left foot was prepped and draped in the usual sterile fashion.
Attention was directed to the plantar medial aspect of the left hallux where a draining wound with purulence was present. An elliptical incision was planned to encompass the wound and extend dorsally and medially around the hallux. A full-thickness
incision was carried down through skin and subcutaneous tissue, and the hallux was disarticulated at the first metatarsophalangeal joint. Given MRI findings of osteomyelitis and intraoperative evidence of softened, nonviable bone, the distal portion
of the first metatarsal was also resected. The bone was cut in a beveled fashion using a sagittal saw to allow smooth contour and to facilitate closure.
All nonviable soft tissue and infected bone were excised until healthy bleeding bone and viable tissue were encountered. The surgical field was copiously irrigated with 3 liters of pulsatile normal saline solution. No further purulence was
identified after resection.
Hemostasis was achieved with electrocautery. The wound edges were then approximated without tension. Deep soft tissues were re-approximated using 3-0 Monocryl in an interrupted fashion, and the skin was closed with 3-0 Prolene simple interrupted
sutures. The surgical site appeared clean with good capillary refill to the remaining digits.
A sterile, compressive dressing was applied.
Disposition:
The patient tolerated the procedure well and was transferred to the recovery room in stable condition with intact vascular status to the remaining left foot.
== END 2025-01-26 15:03 | disposition home or self-care (01) | DRG 617 ==
LOC: 4 EAST ACU 22:22
PROVIDERS: Clinical Nurse Specialist Family Health; Student in an Organized Health Care Education/Training Program; ADMITTING PHYSICIAN Internal Medicine; ATTENDING PHYSICIAN Internal Medicine; CONSULT PHYSICIAN Internal Medicine Infectious Disease; EMERGENCY PHYSICIAN Emergency Medicine; OTHER PHYSICIAN Student in an Organized Health Care Education/Training Program
PROC: 0Y6Q0Z3 Detachment at Left 1st Toe, Low, Open Approach (ICD-10-PCS; 2025-01-26)
DX: E11.628 Type 2 diabetes mellitus with other skin complications (principal); L03.116 Cellulitis of left lower limb; M00.9 Pyogenic arthritis, unspecified; M86.172 Other acute osteomyelitis, left ankle and foot; Z16.12 Extended spectrum beta lactamase (ESBL) resistance; M19.072 Primary osteoarthritis, left ankle and foot; E78.5 Hyperlipidemia, unspecified; I10 Essential (primary) hypertension; B96.4 Proteus (mirabilis) (morganii) as the cause of diseases classified elsewhere; B95.1 Streptococcus, group B, as the cause of diseases classified elsewhere; E11.621 Type 2 diabetes mellitus with foot ulcer; E11.622 Type 2 diabetes mellitus with other skin ulcer; L97.529 Non-pressure chronic ulcer of other part of left foot with unspecified severity; Z79.4 Long term (current) use of insulin; Z79.84 Long term (current) use of oral hypoglycemic drugs; Z91.148 Patient's other noncompliance with medication regimen for other reason
CPT/HCPCS: 73630; 73720; 80053; 82962; 83036; 83605; 85025; 87040; 87070; 87075; 87077; 87147; 87186; 87205; 88305; 88311; 97116; 97162; 97164; 99285; A9575

== ENCOUNTER 2025-02-06 20:59 | Inpatient (IN) | payer OTHER, SELFPAY ==
[2025-02-06 17:24] VITALS: BP 136/78
--- NOTE | 2025-02-06 19:12 | ED.GENMED ---
History of Present Illness
General
Chief Complaint: Post Operative Problem(s)
Time Seen by Provider: 02/06/25 19:11
History of Present Illness
History of Present Illness:
FOCUSED PAST MEDICAL HISTORY
- The patient has a history of osteomyelitis, IDDM
REVIEW OF OLD RECORDS
- The patient had left first toe and partial first ray amputation (MRI confirmed osteomyelitis involving the entire hallux) with Dr. Fisher on 01/25/2025. There was septic arthritis of the first IP joint.
Note:
CHIEF COMPLAINT(S)
Fever and vomiting post-surgery.
HISTORY OF PRESENT ILLNESS
The patient is a 49-year-old male who underwent a partial foot amputation, including the first metatarsal bone and the big toe, approximately 10 days ago. Postoperatively, the patient reports experiencing fever, although he has not measured his
temperature. He has also been experiencing significant vomiting. The patient notes that wound care has been administered by family members, with a recent cleaning performed on the previous Thursday. The patient is experiencing reduced sensation at the
site of the surgery. An examination of the site revealed the wound appears worse than previously noted.
PAST MEDICAL AND SURIGICAL HISTORY
Recent partial foot amputation including the first metatarsal bone and the big toe performed approximately 10 days ago.
PHYSICAL EXAM
- General: Well appearing in no distress
- HEENT: Moist oral mucosa
- Cardiovascular: No murmurs, normal heart rate, regular rhythm, No chest wall tenderness
- Pulmonary: No respiratory distress, breath sounds are clear and equal
- Abdomen: Soft with no peritoneal signs, no tenderness
- Neurologic: Excellent strength all extremities, no coordination deficits, decree sensation at the surgical site
- Psychiatric: Appropriate mental status, normal insight and judgement
- Extremities: Nontender, no edema, moves all extremities equally
- Wound at the distal left foot: Inspection shows large maggot infestation at the recent surgical site at the left foot distally, foul-smelling odor however there is no significant warmth and there is no purulent drainage
PLAN
-Debrided the maggots
-Discussed with [facility] orthopedics
- Evaluate the wound site for signs of infection.
- Consider wound culture to guide antibiotic therapy if infection is suspected.
- Address the patients symptoms of fever and vomiting, evaluating for potential systemic infection or complications from surgery.
- Monitor and manage post-surgical recovery and wound healing, with re-evaluation for potential interventions such as debridement if required.
SUMMARY OF ENCOUNTER
The patient presented with fever and vomiting following a recent partial foot amputation conducted around 10 days ago. Post-surgical complications include wound deterioration and decreased sensation at the surgical site. Management focuses on
assessing for infection and addressing systemic symptoms.
DIFFERENTIAL DIAGNOSIS
The Differential Diagnosis includes, in no particular order and is not limited to:
- Maggot infestation
- Post-surgical wound infection
- Surgical site infection with possible osteomyelitis
- Systemic infection (e.g., sepsis)
- Non-infectious inflammation or hematoma
- Deep vein thrombosis
- Drug reaction or side effect
- Gastrointestinal infection unrelated to surgery
- Dehydration due to vomiting
- Fever due to other systemic causes (e.g., viral infection)
- Fever of unknown origin
DIAGNOSIS
- Maggot infestation of recent surgical wound
White count 12.9, chemistries unremarkable except glucose of 188
I communicated with cable tender, Dr. Brunson who recommends 'irrigate/soak foot with hydrogen peroxide, any remaining maggots should evacuate, n.p.o. for tomorrow, will take him for revision revision in the OR tomorrow'
Past History
Past History
ED Past Medical History: NIDDM
Social History
Tobacco: Non-smoker
Alcohol: Occasional
Drug: None
Personal:
Living: with family
Employment: Employed
Phy Exam
Physical Exam
Physical Exam:
See HPI
Course
Orders/Labs/Results
Orders:
Orders
02/06/25 19:47
Complete Blood Count/With Diff Urgent
Comprehensive Metabolic Panel Urgent
Wound Culture [Wound/Abscess/Other Culture] Urgent
VÍCTOR Source: Foot
Specimen Description: Left
Date Specimen was Collected: 02/06/25
Time Specimen was Collected: 19:43
02/06/25 20:35
Admit/Transfer Patient As Directed
Co-Sign Provider:
Level of Care: Inpatient admission
Assign to:: Medical/Surgical
Physician / Group: Meenakshi
Diagnosis: post operative wound
Reason for Hospitalization: post operative wound
Expected length of stay greater than two midnights?: Yes
ELOS- Estimated Length of Stay in days: 2
I certify the patient meets the requirements for IP care: Yes
PRN Pain Medication Management As Directed
May give lesser potent ordered pain med per pt: Yes
preference::
Protocol:: Medication orders for pain may be administered in a
manner that supports deferring to patient preference
when the pt is:
- Requesting an ordered lesser potent pain medication.
Least to most potent pain medications are defined
as: acetaminophen < NSAID < tramadol < opioids
(morphine, oxycodone, hydromorphone).
- Requesting a lesser dose of the same medication IF
ORDERED.
- Requesting a less intrusive route of administration
if both routes are prescribed by the provider (PO <
IV).
02/06/25 20:36
Code Status As Directed
Resuscitation Status: Full Code
Abnormal Lab Results
02/06/25
19:47
WBC 12.9 H 10^3/uL
(4.8-10.8)
RBC 4.17 L 10^6/uL
(4.70-6.10)
Hgb 11.7 L g/dL
(13.0-18.0)
Hct 34.7 L %
(39.0-52.0)
Plt Count 449 H 10^3/uL
(130-400)
Abs Immat Gran (auto) 0.1 H 10^3/uL
(0-0.05)
Absolute Neuts (auto) 9.5 H 10^3/uL
(1.4-6.5)
Absolute Monos (auto) 1.1 H 10^3/uL
(0.1-0.6)
Lymphocytes % 15.3 L %
(20.5-51.1)
BUN 23 H mg/dl
(9-20)
Glucose 188 H mg/dl
(70-99)
02/06/25 19:47
02/06/25 19:47
Vital Signs
Initial and Last Documented VS:
Initial Vital Signs
Temp Pulse Resp BP Pulse Ox
36.8 C 98 16 136/78 98
02/06/25 17:24 02/06/25 17:24 02/06/25 17:24 02/06/25 17:24 02/06/25 17:24
Last Documented Vital Signs
Temp Pulse Resp BP Pulse Ox
36.8 C 98 16 136/78 98
02/06/25 17:24 02/06/25 17:24 02/06/25 17:24 02/06/25 17:24 02/06/25 19:14
*Pulse Oximetry
SaO2: 98
Oxygen Mode of Delivery: Room air
Patient hypoxic: no
*Critical Care Note
Total Time (30-74mins, 75-104mins- exclusive of procedures): Not Applicable
ED Attending Note
-
Portions of this chart may have been created with voice recognition software.� Occasional wrong word or��sound alike� substitutions may have occurred due to the inherent limitations of voice recognition software.
Discharge Plan
Departure
Patient Disposition: Admit
Date of Disposition: 02/06/25
Time of Disposition: 20:17
Presentation/result/management discussed w/ accepting MD/DO: Hospitalist
Patient with high blood pressure during this ER visit?: Yes
Discharge Problem:
Maggot infestation
Interventions
Interventions:
*Risk Screen - Suicide Last Done: 02/06/25 17:24
*General Assessment Last Done: 02/06/25 19:45
*Neglect/Abuse Screening Last Done: 02/06/25 17:24
*ED- Fall Risk Assessment Last Done: 02/06/25 19:45
*ED COVID-19 Vaccine History Last Done: 02/06/25 19:45
ED-Skin Assessment Last Done: 02/06/25 19:45
[2025-02-06 19:59] LABS: Hematocrit 34.7 % (39.0-52.0); Hemoglobin 11.7 g/dL (13.0-18.0); Mean Corp Hgb Conc. 33.7 g/dL (33.0-37.0); Mean Corpuscular Volume 83.2 fL (80.0-94.0); Nucleated Red Blood Cells % 0 % (-); Platelet Count 449 10^3/uL (130-400); Red Cell Dist. Width 11.6 % (11.5-14.5)
[2025-02-06 20:16] LABS: ALT (SGPT) 21 U/L (0-50); AST (SGOT) 25 U/L (17-59); Albumin 3.7 g/dl (3.5-5.0); Alkaline Phosphatase 109 U/L (38-126); Blood Urea Nitrogen 23 mg/dl (9-20); Calcium 9.0 mg/dl (8.4-10.2); Carbon Dioxide 22 mmol/L (22-30); Chloride 105 mmol/L (98-107); Glucose 188 mg/dl (70-99); Potassium 4.6 mmol/L (3.5-5.1); Sodium 136 mmol/L (135-145); Total Protein 7.3 g/dl (6.3-8.2); eGFR > 60.00
--- NOTE | 2025-02-06 20:22 | W.PN.UPDATE ---
Update Note
Progress Note Update
49M s/p partial 1st ray amputation, with maggot infestation today
- NPO at midnight for OR debridement tomorrow
- NWB LLE
- full consult note to follow
--- NOTE | 2025-02-06 20:27 | HPS.HSE ---
Family Physician
-
Family Physician: NOT KNOW UNKNOWN - PT DOES
Chief Complaint
-
Left Foot wound complication with maggot infestation
History of Present Illness
This is a 49-year-old male with past medical history of insulin-dependent diabetes, history of left great toe diabetic foot ulcer/osteomyelitis who is postop day #11 status post first toe partial ray amputation now presenting to the emergency
department due to maggot filled wounds.
Patient was discharged on January 26 after hospital management. He was discharged on cephalexin 1 g every 8. Patient has been caring for the wound at home with daily dressings. He reported that his last change dressing yesterday. Prior to
that the wound had been healing well. However when to change dressing yesterday did notice a significant amount of maggot. Patient himself reported that he had 1 episode of nausea vomiting and felt feverish but no fevers were measured.
In the emergency department he was afebrile, blood pressure was 126/71 with a pulse rate of 98 was satting 98% on room air.
CBC shows a white count of 12.9, hemoglobin and platelets were normal. Electrolytes BUN and creatinine were normal. Glucose was 188
Medical History
Past Medical History
Past Medical History: Reports Other
Additional Past Medical History:
uncontrolled DM2
HTN
HLD
chronic left great toe diabetic wound/ulcers, wound culture December 2024 growing MSSA, diphtheroids, Enterococcus and group B strep.
Past Surgical History: Reports Other
Additional Past Surgical History:
Debridement left foot wound
Social History
Tobacco: Non-smoker
Alcohol: Occasional (2-3 beers a week)
Personal:
Living: With Family
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
Family History
Family History: Not pertinent
Allergies / Home Medications
Allergies reflects when Allergies were last updated in [facility].
Home Medications with original date entered in [facility]
Allergy/Medication List:
Allergies
Allergy/AdvReac Type Severity Reaction Status Date / Time
No Known Allergies Allergy Verified 12/12/24 11:11
Home Medications
atorvastatin 40 mg tablet (Lipitor) 40 mg PO DAILY 12/12/24
cholecalciferol (vitamin D3) 50 mcg (2,000 unit) capsule (Vitamin D3) 50 mcg PO DAILY 12/12/24
empagliflozin 10 mg tablet (Jardiance) 10 mg PO DAILY 12/12/24
insulin glargine 100 unit/mL (3 mL) subcutaneous pen (Basaglar KwikPen U-100 Insulin) 34 unit SC HS 12/12/24
lisinopril 2.5 mg tablet 2.5 mg PO DAILY 12/12/24
sitagliptin phosphate 50 mg-metformin 1,000 mg tablet (Janumet) 1 tab PO BID 12/12/24
amoxicillin 875 mg-potassium clavulanate 125 mg tablet 1 tab PO Q12H 10 days #20 tabs 12/15/24
collagenase clostridium histo. 250 unit/gram topical ointment (Santyl) 1 applic topical DAILY #250 grams 12/16/24
insulin aspart U-100 100 unit/mL (3 mL) subcutaneous pen 5 unit (0.05 mL) SC AC Diabetes 90 days #13.5 mL 12/16/24
Review of Systems
-
History Source: Patient
A 12 point ROS was completed and negative except as noted: Yes
Constitutional: Denies Fever or Chills
EENT: Denies Sore Throat or Runny Nose
Respiratory: Denies Cough or Trouble Breathing
Cardiac: Denies Chest Pain, Diaphoresis, Palpitations or Syncope
Abdomen/GI: Denies Abdominal Pain, Nausea, Vomiting, Diarrhea, Constipated or Bloody Stools
: Denies Dysuria, Frequency, Flank Pain or Incontinence
Musculoskeletal: Reports Joint Pain (Left great toe), Edema (Left great toe) and Other (Left great toe chronic plantar ulceration using serous drainage, dorsal part of foot with slight erythema/tracking)
Skin: Denies Itching or Rash
Neurological: Denies Dizzy or Headache
Endocrine: Reports No Symptoms
Hematologic/Lymphatic: Reports No Symptoms
Psych: Reports Calm
Physical Exam
Vital Signs
Vital Signs
Temp Pulse Resp BP Pulse Ox
98.3 F 98 16 136/78 98
02/06/25 17:24 02/06/25 17:24 02/06/25 17:24 02/06/25 17:24 02/06/25 19:14
Physical Exam
General: Pain; No Fever or Chills
HEENT: NormoCephalic, Anicteric, Moist mucous membranes, [place] Conjunctivae and No Ptosis
Respiratory: Clear; No Wheezes, Rales or Rhonchi
Cardiac: S1/S2 and Regular Rhythm; No Murmur, Rub, Gallop or Peripheral Edema
Breast: Deferred by me
GI: Soft, Non Tender, Non Distended and Normal Bowel Sounds
Rectal: Deferred by Provider
Genito-urinary: Deferred by me
Musculoskeletal: No Clubbing, No Cyanosis, No Edema and Other (Left great toe amputation, open wound which is currently soaked in hydrogen peroxide. There is mild surrounding erythema.); No Edema, Left Lower Extremity (Left great toe chronic
plantar ulceration using serous drainage, dorsal part of foot with slight erythema/tracking)
Skin: Warm and Dry; No Rash
Neuro: AO x 3 and Nonfocal/grossly intact
Psych: Calm
Laboratory Results
-
02/06/25 19:47
02/06/25 19:47
Laboratory Results
Total Bilirubin 0.8 mg/dl (0.2-1.3) 02/06/25 19:47
AST 25 U/L (17-59) 02/06/25 19:47
ALT 21 U/L (0-50) 02/06/25 19:47
Alkaline Phosphatase 109 U/L (38-126) 02/06/25 19:47
Data Reviewed
-
Lab Data: Labs Reviewed by me
Old Records: Reviewed
Impression/Plan
-
IMPRESSION:
49-year-old with insulin-dependent diabetes will has a recent diagnosis of left first toe osteomyelitis status post partial amputation on postop day #11 who presents to the emergency department with worsening wound which is now filled with maggots.
He has a leukocytosis but no fevers or chills. Wound possibly infected but no systemic signs of infection at this time.
Assessment and plan
Post operative wound complication - Maggot infested wound.
- admit to med/surg
- NPO after midnight
- application of hydrogen peroxide soak to evacuate maggot per podiatry
- OR tomorrow for revision
- continue pain control
- continue cephalexin 1g q8 for now
- wound care consult
- ortho ([facility]ann[facility]) consulted.
Diabetes -
- lantus 20 hs
- aspart 5 tidac
- sliding scale insulin
- metformin on hold fo
DVT PPX - lovenox sq
Code status - Full code
[2025-02-06 20:43] VITALS: BMI 30.4
[2025-02-06 22:13] VITALS: BP 124/69; BMI 27.7
--- NOTE | 2025-02-06 22:15 | PTCARENOTE ---
Pt arrived to room 421-01. Pt transferred from stretcher to bed. Pt AAOx3, VSS. Pt oriented to room, call hudson placed within reach.
[2025-02-06 22:20] LABS: Glucose - Point of Care 168 mg/dl (70-99)
[2025-02-06] MEDS: KEFLEX 1000 MG PO (22:35)
[2025-02-07] VITALS (8 sets, daily range): BP systolic 94–137; BP diastolic 66–86
[2025-02-07 05:57] LABS: Glucose - Point of Care 112 mg/dl (70-99)
[2025-02-07] MEDS: KEFLEX 1000 MG PO (06:10)
[2025-02-07] MEDS: NOVOLOG FLEXPEN-LOW RESISTANCE SC ×3 (07:34→17:00)
[2025-02-07] MEDS: STERILE WATER FOR INJECTION 20 ML IV ×2 (07:51→23:35)
[2025-02-07] MEDS: MERREM 1000 MG IV ×2 (07:52→23:36)
[2025-02-07 08:48] LABS: Hematocrit 35.0 % (39.0-52.0); Hemoglobin 11.3 g/dL (13.0-18.0); Mean Corp Hgb Conc. 32.3 g/dL (33.0-37.0); Mean Corpuscular Volume 85.2 fL (80.0-94.0); Platelet Count 487 10^3/uL (130-400); Red Cell Dist. Width 11.5 % (11.5-14.5)
[2025-02-07 08:55] LABS: INR 1.06; PT 14.1 Sec (11.4-14.6)
[2025-02-07 08:56] LABS: APTT 37.8 Sec (23.4-35.0)
[2025-02-07 09:53] LABS: Blood Urea Nitrogen 23 mg/dl (9-20); Calcium 9.3 mg/dl (8.4-10.2); Carbon Dioxide 24 mmol/L (22-30); Chloride 104 mmol/L (98-107); Estimated Creatinine Clearance 97 ml/min; Glucose 109 mg/dl (70-99); Magnesium 1.9 mg/dl (1.6-2.3); Potassium 4.5 mmol/L (3.5-5.1); Sodium 138 mmol/L (135-145); eGFR > 60.00
--- NOTE | 2025-02-07 10:07 | CON.SURG ---
Surgical Consultation
-
Chief Complaint
-
Left Foot wound complication with maggot infestation
History of Present Illness
This is a 49-year-old male with past medical history of insulin-dependent diabetes, history of left great toe diabetic foot ulcer/osteomyelitis who is postop day #11 status post first toe partial ray amputation now presenting to the emergency
department due to maggot infested wound. Patient was discharged on January 26 after hospital management. He was discharged on cephalexin 1 g every 8h. Patient has been caring for the wound at home with daily dressings. He reported that his
last change dressing yesterday with wet to dry dressings per free clinic recommendations. Prior to that the wound had been healing well. However when to change dressing yesterday did notice a significant amount of maggots. Patient himself reported
that he had 1 episode of nausea vomiting and felt feverish but no fevers were measured.
In the emergency department he was afebrile, blood pressure was 126/71 with a pulse rate of 98 was satting 98% on room air.
CBC shows a white count of 12.9 downtrending to 11.0, hemoglobin and platelets were normal. Electrolytes BUN and creatinine were normal. Glucose was 188
Medical History
Past Medical History
Past Medical History: Reports Other
Additional Past Medical History:
uncontrolled DM2
HTN
HLD
chronic left great toe diabetic wound/ulcers, wound culture December 2024 growing MSSA, diphtheroids, Enterococcus and group B strep.
Past Surgical History: Reports Other
Additional Past Surgical History:
Debridement left foot wound
Social History
Tobacco: Non-smoker
Alcohol: Occasional (2-3 beers a week)
Personal:
Living: With Family
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
Family History
Family History: Not pertinent
Allergies / Home Medications
Allergies reflects when Allergies were last updated in [facility].
Home Medications with original date entered in [facility]
Allergy/Medication List:
Allergies
Allergy/AdvReac Type Severity Reaction Status Date / Time
No Known Allergies Allergy Verified 12/12/24 11:11
Home Medications
atorvastatin 40 mg tablet (Lipitor) 40 mg PO DAILY 12/12/24
cholecalciferol (vitamin D3) 50 mcg (2,000 unit) capsule (Vitamin D3) 50 mcg PO DAILY 12/12/24
empagliflozin 10 mg tablet (Jardiance) 10 mg PO DAILY 12/12/24
insulin glargine 100 unit/mL (3 mL) subcutaneous pen (Basaglar KwikPen U-100 Insulin) 34 unit SC HS 12/12/24
lisinopril 2.5 mg tablet 2.5 mg PO DAILY 12/12/24
sitagliptin phosphate 50 mg-metformin 1,000 mg tablet (Janumet) 1 tab PO BID 12/12/24
amoxicillin 875 mg-potassium clavulanate 125 mg tablet 1 tab PO Q12H 10 days #20 tabs 12/15/24
collagenase clostridium histo. 250 unit/gram topical ointment (Santyl) 1 applic topical DAILY #250 grams 12/16/24
insulin aspart U-100 100 unit/mL (3 mL) subcutaneous pen 5 unit (0.05 mL) SC AC Diabetes 90 days #13.5 mL 12/16/24
Review of Systems
-
History Source: Patient
A 12 point ROS was completed and negative except as noted: Yes
Constitutional: Denies Fever or Chills
EENT: Denies Sore Throat or Runny Nose
Respiratory: Denies Cough or Trouble Breathing
Cardiac: Denies Chest Pain, Diaphoresis, Palpitations or Syncope
Abdomen/GI: Denies Abdominal Pain, Nausea, Vomiting, Diarrhea, Constipated or Bloody Stools
: Denies Dysuria, Frequency, Flank Pain or Incontinence
Musculoskeletal: Reports Joint Pain (Left great toe), Edema (Left great toe) and Other (Left great toe chronic plantar ulceration using serous drainage, dorsal part of foot with slight erythema/tracking)
Skin: Denies Itching or Rash
Neurological: Denies Dizzy or Headache
Endocrine: Reports No Symptoms
Hematologic/Lymphatic: Reports No Symptoms
Psych: Reports Calm
Physical Exam
Vital Signs
Vital Signs
Temp Pulse Resp BP Pulse Ox
98.3 F 98 16 136/78 98
02/06/25 17:24 02/06/25 17:24 02/06/25 17:24 02/06/25 17:24 02/06/25 19:14
Physical Exam
General: Pain; No Fever or Chills
HEENT: NormoCephalic, Anicteric, Moist mucous membranes, [place] Conjunctivae and No Ptosis
Respiratory: Clear; No Wheezes, Rales or Rhonchi
Cardiac: S1/S2 and Regular Rhythm; No Murmur, Rub, Gallop or Peripheral Edema
Breast: Deferred by me
GI: Soft, Non Tender, Non Distended and Normal Bowel Sounds
Rectal: Deferred by Provider
Genito-urinary: Deferred by me
Musculoskeletal: No Clubbing, No Cyanosis, No Edema and Other (Left great toe amputation, open wound which is currently soaked in hydrogen peroxide. There is mild surrounding erythema.); No Edema, Left Lower Extremity (Left great toe chronic
plantar ulceration using serous drainage, dorsal part of foot with slight erythema/tracking)
Skin: Warm and Dry; No Rash
Neuro: AO x 3 and Nonfocal/grossly intact
Psych: Calm
Left foot examination
-DP/PT pulses 2/4, capillary refill < 3 seconds
-Previous left partial 1st ray amputation
-Plantar flap with necrotic tissue and maggot infestation noted
-Mild erythema noted to dorsal flap
Laboratory Results
-
02/06/25 19:47
02/06/25 19:47
Laboratory Results
Total Bilirubin 0.8 mg/dl (0.2-1.3) 02/06/25 19:47
AST 25 U/L (17-59) 02/06/25 19:47
ALT 21 U/L (0-50) 02/06/25 19:47
Alkaline Phosphatase 109 U/L (38-126) 02/06/25 19:47
Data Reviewed
-
Lab Data: Labs Reviewed by me
Old Records: Reviewed
Impression/Plan
-
49-year-old with insulin-dependent diabetes will has a recent diagnosis of left first toe osteomyelitis status post partial amputation on postop day #11 who presents to the emergency department with worsening wound which is now infested with
maggots. He had leukocytosis, which is downtrending, but no fevers or chills. No signs of systemic infection at this time
-Patient NPO in preparation for OR today for partial 1st ray amputation revision
-Continue antibiotics and local wound care with hyodrgen peroxide for now
-Continue to monitor WBC (downtrending 12.9 -> 11.0)
-Rigid blood sugar control
-Strict NWB to LLE
--- NOTE | 2025-02-07 11:32 | W.PN.HOSP.TC ---
Today's Communication/Plan
-
see PN
complicated by absent insurance
Assessment / Plan
Assessment / Plan
49yo M with DM, HLD, recent L great toe OM s/p L 1st partial ray amputation on 01/25/25 came with worsening wound and magots in the wound. Managed for reidual diabeticwound infection. As per previous wound Cx switched to merrem upon admission.
Planned for I&D by podiatry on 02/07/25
A/P:
#DM wound infection
#Acute OM
as per resection pathology from 01/25/25: Acute osteomyelitis, extending to bone resection margin
previous wound Cx: Proteus vulgaris, Proteus Penneri, Klebsiella oxytoca ESBL, GBS - switched to Merrem pending further ID
Podiatry consult
#DM type 1
cont insulin Lantus 20units, Lipro 5units AC
Accuchecks, insulin SS
DM diet
hold metformin
DVT ppx lovenox
Full code
I have spent at least 58min reviewing chart, test results, communication with consultants and providing direct patient care
Anticipated Discharge: > 48 hours
Subjective/Interval History
-
Date of Service: February 07, 2025
Objective Data
-
Labs:
Laboratory Results
02/07/25
07:55
WBC 11.0 H
Hgb 11.3 L
Hct 35.0 L
Plt Count 487 H
PT 14.1
INR 1.06
APTT 37.8 H
Sodium 138
Potassium 4.5
Chloride 104
Carbon Dioxide 24
BUN 23 H
Creatinine 0.9
Glucose 109 H
Calcium 9.3
Vital Signs:
Vital Signs
Temp Pulse Resp BP Pulse Ox
98.4 F 67 18 131/77 95
02/07/25 07:00 02/07/25 07:00 02/07/25 07:00 02/07/25 07:00 02/07/25 07:00
I&O
02/06/25 02/07/25 02/08/25
06:59 06:59 06:59
Output Total 800 / 800
Balance -800 / -800
Review of Systems
-
History Source: Patient
All other systems: Reviewed and negative
Physical Exam
-
General: No Apparent Distress
HEENT: Normocephalic
Respiratory: Clear to Auscultation
GI: Soft, Nontender and Nondistended
Musculoskeletal: No Clubbing, No Cyanosis and No Edema
Skin: Warm
Neuro: Awake, Alert, Oriented and AO x 3
Psych: Calm
[2025-02-07 11:46] LABS: Glucose - Point of Care 97 mg/dl (70-99)
--- NOTE | 2025-02-07 13:04 | CM ---
site operations manager reviewed patient's chart and spoke with patient's spouse Lexy by phone, patient has no insurance, is being followed [facility], patient lives in a one story home with 3 steps to enter, patient is independent with adl's and uses a walker, w/c
with ambulation, Accu check machine in home. Patient is followed by the [facility].
Plan; Home when stable.
--- NOTE | 2025-02-07 13:34 | CON.ID ---
Consultation
-
Date/Time Consultation Requested: February 07, 2025 0716
Date/Time Consultation Performed: February 07, 2025 1330
Requesting Provider: Dr. Jack Vaughan
Performing Provider: Dr. Esperanza Garnett
Reason for Consultation: ESBL, diabetic wound
Chief Complaint / Past History
Chief Complaint
Left foot wound with maggots
History of Present Illness
49-year-old male with history of poorly controlled diabetes mellitus, recent left hallux osteo partial ray amputation (01/25/25), dc'd home 01/26 on cephalexin who returned to the ED yesterday when saw maggots on amp site during dressing changes.
Patient unsure how the maggots got into the wound. The toe was always covered. Had episode of chills the other night. He reports the amp site was healing well until yesterday. Podiatry is planning to take him to the OR today.
Past History
Additional Past Medical History:
Diabetes mellitus
Dyslipidemia
HTN
Left great toe osteo status post partial first ray amputation 01/25/2025
Allergy History:
No Known Allergies Allergy (Verified 12/12/24 11:11)
Medications Reviewed: Yes
Current Antibiotics:
meropenem
Social History
Tobacco: Non-Smoker
Alcohol: Occasional
Drug: None
Personal:
Living: With Family
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
Family History
Family History: Not Pertinent
Review of Systems
Review of Systems
General: Chills; Negative Change in Appetite
HEENT: Negative Sinus Problems or Headache
Cardiovascular: Negative Chest Pain or Dyspnea
Respiratory: Negative Dyspnea or Cough
Gasteroenterology: Negative Nausea, Vomiting or Diarrhea
Genital / Urological: Negative Dysuria or Flank Pain
Endocrine: Negative Weakness
All systems: All other systems were reviewed and were negative
Vital Signs
Temp Pulse Resp BP Pulse Ox
98.4 F 67 18 131/77 95
02/07/25 07:00 02/07/25 07:00 02/07/25 07:00 02/07/25 07:00 02/07/25 07:00
Physical Exam
Physical Exam
Constitutional: No Acute Distress and Comfortable
Eyes: No Conjunctival Hemorrhage and Sclera Anicteric
Cardiovascular: Regular Rate and S1/S2
Pulmonary: Clear
Gastrointestinal: Soft, Non Tender, Non Distended and Normal Bowel Sounds
Genito-Urinary: Negative CVA Tenderness
Extremities: Negative Edema
Wound: Other (left foot dressing in place)
Neurological: AO x 3
Lab / Diagnostic Study Results
02/07/25 07:55
02/07/25 07:55
Abs Immat Gran (auto) 0.1 10^3/uL (0-0.05) H 02/06/25 19:47
Absolute Neuts (auto) 9.5 10^3/uL (1.4-6.5) H 02/06/25 19:47
Absolute Lymphs (auto) 2.0 10^3/uL (1.2-3.4) 02/06/25 19:47
Absolute Monos (auto) 1.1 10^3/uL (0.1-0.6) H 02/06/25 19:47
Absolute Basos (auto) 0.1 10^3/uL (0-0.2) 02/06/25 19:47
Immature Gran % 0.5 % (0-0.5) 02/06/25 19:47
Neutrophils % 73.4 % (42.2-75.2) 02/06/25 19:47
Lymphocytes % 15.3 % (20.5-51.1) L 02/06/25 19:47
Monocytes % 8.4 % (1.7-9.3) 02/06/25 19:47
Eosinophils % 1.9 % (0-6) 02/06/25 19:47
Basophils % 0.5 % (0-2) 02/06/25 19:47
PT 14.1 Sec (11.4-14.6) 02/07/25 07:55
INR 1.06 02/07/25 07:55
Microbiology Results
Micro:
02/06/25 22:29 MRSA Screen - Pending
Nose
02/06/25 19:47 Wound Culture - Pending
Foot - Left Gram Stain - Pending
Assessment / Plan
# Left great toe osteomyelitis s/p partial ray amputation 01/25/25.
Of note bone path: Acute osteomyelitis extending to bone resection margin -> did not achieve surgical cure
# Left first toe amputation site with maggot infestation
# Leukocytosis, improving
# Uncontrolled DM, HBA1c
- Agree with meropenem based on previous OR cx's
- To OR today for left hallux partial ray amp revision.
Spoke to Podiatry regarding further bone resection to achieve surgical cure this time.
- Follow wbc.
Care Review
Plan reviewed with: Physician (Dr. Larkin)
[2025-02-07] MEDS: STERILE WATER FOR INJECTION IV (16:24)
[2025-02-07] MEDS: MERREM IV (16:24)
--- NOTE | 2025-02-07 16:42 | W.PN.SURGUPD ---
Surgical Update
Surgical Update
49 yo M s/p L partial ray amputation revision with extensive debridement packed open
-Plan for return to OR 02/09 for 2nd toe amputation vs transmetatarsal amputation
-Dressings can be reinforced as needed
-Continue IV antibiotics per ID recs
-1x pathology 1x culture obtained
-Strict NWB to LLE
[2025-02-07 16:50] LABS: Glucose - Point of Care 94 mg/dl (70-99)
--- NOTE | 2025-02-07 17:27 | WOUNDNOTE ---
ROXY RN NOTE: Confirmed with Dr. Larkin can cancel wound care consult.
[2025-02-07] MEDS: LOVENOX 40 MG SC (17:52)
[2025-02-07] MEDS: LIPITOR 20 MG PO (17:52)
[2025-02-07] MEDS: NOVOLOG FLEXPEN 5 UNITS SC (18:07)
[2025-02-07] MEDS: ROXICODONE 5 MG PO ×2 (18:38→23:35)
[2025-02-07 21:25] LABS: Glucose - Point of Care 104 mg/dl (70-99)
[2025-02-07] MEDS: LANTUS 0.2 UNITS SC (21:49)
[2025-02-07] MEDS: TYLENOL 650 MG PO (21:49)
[2025-02-08] MEDS: ROXICODONE 5 MG PO ×4 (04:10→21:14)
[2025-02-08 07:00] VITALS: BP 128/76
[2025-02-08 08:20] LABS: Glucose - Point of Care 119 mg/dl (70-99)
--- NOTE | 2025-02-08 08:20 | W.PN.UPDATE ---
Update Note
Progress Note Update
49 yo M s/p L partial ray amputation revision with extensive debridement packed open. doing well this AM, anticipated postop pain, no strikethrough on dressing, calves soft/supple/nontender
-Plan for return to OR 02/09 for 2nd toe amputation vs transmetatarsal amputation
-Dressings can be reinforced as needed
-Continue IV antibiotics per ID recs
-1x pathology 1x culture obtained
-Strict NWB to LLE
[2025-02-08] MEDS: NOVOLOG FLEXPEN-LOW RESISTANCE SC (08:27)
[2025-02-08] MEDS: STERILE WATER FOR INJECTION 20 ML IV (08:35)
[2025-02-08] MEDS: NOVOLOG FLEXPEN 5 UNITS SC ×3 (08:42→16:51)
[2025-02-08] MEDS: MERREM 1000 MG IV (08:43)
--- NOTE | 2025-02-08 11:20 | W.PN.HOSP.TC ---
Today's Communication/Plan
-
cont merrem pending further MGMT
Assessment / Plan
Assessment / Plan
49yo M with DM, HLD, recent L great toe OM s/p L 1st partial ray amputation on 01/25/25 came with worsening wound and magots in the wound. Managed for reidual diabeticwound infection. As per previous wound Cx switched to merrem upon admission.
Planned for I&D by podiatry on 02/07/25
A/P:
#DM wound infection
#Acute OM
as per resection pathology from 01/25/25: Acute osteomyelitis, extending to bone resection margin
previous wound Cx: Proteus vulgaris, Proteus Penneri, Klebsiella oxytoca ESBL, GBS - switched to Merrem pending further ID
Podiatry consult: s/p I&D on 02/08/25. Plan for OR 02/09/25 for toe and transmetatarsal amputation
#DM type 1
cont insulin Lantus 20units, Lipro 5units AC
Accuchecks, insulin SS
DM diet
hold metformin
DVT ppx lovenox
Full code
I have spent at least 58min reviewing chart, test results, communication with consultants and providing direct patient care
Anticipated Discharge: > 48 hours
Subjective/Interval History
-
Date of Service: February 08, 2025
Objective Data
-
Vital Signs:
Vital Signs
Temp Pulse Resp BP Pulse Ox
98.5 F 87 16 128/76 95
02/08/25 07:00 02/08/25 07:00 02/08/25 07:00 02/08/25 07:00 02/08/25 07:00
I&O
02/07/25 02/08/25 02/09/25
06:59 06:59 06:59
Intake Total 1320 / 1320
Output Total 800 / 800 1475 / 1475
Balance -800 / -800 -155 / -155
Review of Systems
-
History Source: Patient
All other systems: Reviewed and negative
Physical Exam
-
General: Well Developed and Well Nourished
Neuro: Awake, Alert, Oriented and AO x 3
Psych: Calm
[2025-02-08 11:46] LABS: Glucose - Point of Care 169 mg/dl (70-99)
[2025-02-08] MEDS: NOVOLOG FLEXPEN-LOW RESISTANCE 1 UNITS SC ×2 (12:01→16:52)
--- NOTE | 2025-02-08 12:38 | CM ---
CM reviewed chart, patient for OR tomorrow, 02/09/25 for toe and transmetatarsal amputation. Patient currently uninsured, followed by [facility]. CM will continue to follow for all discharge planning needs.
Plan; OR 02/09/25, dependent on medical progress/further recommendations
[2025-02-08 15:00] VITALS: BP 133/75
--- NOTE | 2025-02-08 15:14 | W.PN.ID1 ---
Date of Service
Date of Service: February 08, 2025
Today's Communication
Continue meropenem.
Assessment / Plan
# Left great toe osteomyelitis s/p partial ray amputation 01/25/25.
Of note bone path: Acute osteomyelitis extending to bone resection margin -> did not achieve surgical cure
# Left first toe amputation site with maggot infestation
# Leukocytosis, improving
# Uncontrolled DM, HBA1c
- 02/07 s/p left hallux partial ray revision and debridement
- To OR tomorrow for 2nd toe amp vs TMA
- Continue meropenem.
Chief Complaint
-: Other (foot infection)
Subjective / Review of Systems
No complaints.
Vital Signs / Physical Exam
Vital Signs
Vital Signs
Temp Pulse Resp BP Pulse Ox
98.5 F 87 16 128/76 95
02/08/25 07:00 02/08/25 07:00 02/08/25 07:00 02/08/25 07:00 02/08/25 07:00
Physical Exam
Constitutional: No Acute Distress
Cardiovascular: Regular Rate and S1/S2
Pulmonary: Clear
Gastrointestinal: Soft, Non Tender and Non Distended
Genito-Urinary: Negative CVA Tenderness
Extremities: Negative Edema
Wound: Other (left foot dressing dry)
Objective Data
Lab Data
Lab Results
02/07/25 07:55
02/07/25 07:55
PT 14.1 Sec (11.4-14.6) 02/07/25 07:55
INR 1.06 02/07/25 07:55
APTT 37.8 Sec (23.4-35.0) H 02/07/25 07:55
Estimated Creat Clear 97 ml/min 02/07/25 07:55
Total Bilirubin 0.8 mg/dl (0.2-1.3) 02/06/25 19:47
AST 25 U/L (17-59) 02/06/25 19:47
ALT 21 U/L (0-50) 02/06/25 19:47
Alkaline Phosphatase 109 U/L (38-126) 02/06/25 19:47
Most recent labs reviewed.
Micro Results:
02/07/25 16:16 Wound Culture - Preliminary
Foot - Left Gram Stain - Preliminary
02/07/25 16:16 Anaerobic Culture - Preliminary
Foot - Left Culture pending. Anaerobic cultures are examined after 3
days incubation. Additional information to follow.
02/06/25 19:47 Wound Culture - Preliminary
Foot - Left Gram Stain - Preliminary
02/06/25 22:29 MRSA Screen - Final
Nose No Methicillin Resistant Staphylococcus aureus isolated.
[2025-02-08 16:40] LABS: Glucose - Point of Care 165 mg/dl (70-99)
[2025-02-08] MEDS: MERREM 500 MG IV ×2 (16:48→21:13)
[2025-02-08] MEDS: STERILE WATER FOR INJECTION 10 ML IV ×2 (16:49→21:14)
[2025-02-08] MEDS: LIPITOR 20 MG PO (16:51)
[2025-02-08] MEDS: LOVENOX 40 MG SC (16:52)
[2025-02-08 21:13] LABS: Glucose - Point of Care 267 mg/dl (70-99)
[2025-02-08] MEDS: LANTUS 0.2 UNITS SC (21:13)
[2025-02-08] MEDS: SENOKOT-S 1 TABLET PO (21:14)
--- NOTE | 2025-02-08 21:58 | OR.RPT ---
Operative Report
Operative Report
Operative Report
Patient Name: Chito Simmons

Date of Surgery: 02/07/2025
Surgeon: Marui Larkin DPM
Assistants: Mauri Brunson DPM
Preoperative Diagnosis:
Maggot infestation (myiasis) of left foot surgical site
Soft tissue infection of prior left partial first ray amputation
Postoperative Diagnosis:
Same as preoperative
Procedure Performed:
Excisional debridement of left partial first ray amputation surgical site, including skin, subcutaneous tissue, and necrotic soft tissue and bone
Anesthesia: Monitored anesthesia care with local infiltration of 20ccs of 1% lidocaine plain
Estimated Blood Loss: <10 mL
Specimens Sent: Wound cultures obtained from surgical site, pathology 1st metatarsal bone
Complications: None
Indications for Procedure:
The patient is a [age]-year-old male with a history of partial left first ray amputation performed on 01/25/2025. He presented to the emergency department on 02/06/2025 with foul odor, drainage, and visible maggot infestation at the amputation
site. Examination revealed soft tissue infection, necrotic debris, and myiasis. Operative debridement was indicated to remove devitalized tissue, eradicate infestation, and control infection.
Procedure in Detail:
After informed consent was obtained, the patient was taken to the operating room and placed supine on the operating table. Following administration of monitored anesthesia care, local anesthetic 20ccs of 1% lidocaine plain was infiltrated around
the left forefoot. The left foot was then prepped and draped in standard sterile fashion.
On inspection, there were no residual maggots upon arrival in the operating room. The wound demonstrated maceration, necrotic soft tissue, and purulent drainage.
Sharp excisional debridement of the wound was then carried out using a scalpel and rongeur, removing all nonviable skin, subcutaneous tissue, and necrotic fascia until healthy, bleeding soft tissue was encountered. The exposed 1st metatarsal bone
was then excised with a sagittal saw and sent for pathologic inspection. Deep tissue cultures were obtained and sent for microbiological analysis. Necrotic tissue tracked lateral along the plantar aspect of his forefoot and early necrosis was noted
of the left 2nd toe. All residual necrotic tissue was debrided and removed with a rongeur.
The wound was irrigated extensively with 3 liters of pulsatile lavage using sterile normal saline mixed with antibiotic solution. Hemostasis was achieved with direct pressure and electrocautery as needed. The wound was left open and packed with
betadine moist gauze to allow for drainage. A sterile dressing was applied.
The patient tolerated the procedure well and was transported to the recovery area in stable condition. Will continue antibiotics and closely monitor wound. Anticipate return to operating room on 02/09 for further amputation of left 2nd toe vs
transmetatarsal amputation.
[2025-02-08 23:00] VITALS: BP 148/82
[2025-02-09] MEDS: ROXICODONE 5 MG PO ×4 (01:19→21:43)
[2025-02-09] MEDS: TYLENOL 650 MG PO ×2 (01:19→05:19)
[2025-02-09] MEDS: MERREM 500 MG IV ×4 (04:49→21:44)
[2025-02-09] MEDS: STERILE WATER FOR INJECTION 10 ML IV ×4 (04:49→21:44)
--- NOTE | 2025-02-09 05:00 | PTCARENOTE ---
pt has been npo since midnight - chg bath given . periop teaching
[2025-02-09 06:24] LABS: Glucose - Point of Care 171 mg/dl (70-99)
[2025-02-09 07:00] VITALS: BP 121/75
[2025-02-09 07:21] LABS: Glucose - Point of Care 153 mg/dl (70-99)
[2025-02-09] MEDS: NOVOLOG FLEXPEN SC ×2 (07:28→12:16)
[2025-02-09] MEDS: NOVOLOG FLEXPEN-LOW RESISTANCE SC ×2 (07:28→12:17)
[2025-02-09 08:39] LABS: Hematocrit 34.8 % (39.0-52.0); Hemoglobin 11.1 g/dL (13.0-18.0); Mean Corp Hgb Conc. 31.9 g/dL (33.0-37.0); Mean Corpuscular Volume 85.7 fL (80.0-94.0); Nucleated Red Blood Cells % 0 % (-); Platelet Count 476 10^3/uL (130-400); Red Cell Dist. Width 11.5 % (11.5-14.5)
[2025-02-09 09:08] LABS: ALT (SGPT) 15 U/L (0-50); AST (SGOT) 15 U/L (17-59); Albumin 3.3 g/dl (3.5-5.0); Alkaline Phosphatase 118 U/L (38-126); Blood Urea Nitrogen 18 mg/dl (9-20); Calcium 9.2 mg/dl (8.4-10.2); Carbon Dioxide 30 mmol/L (22-30); Chloride 101 mmol/L (98-107); Estimated Creatinine Clearance 97 ml/min; Glucose 158 mg/dl (70-99); Potassium 4.6 mmol/L (3.5-5.1); Sodium 138 mmol/L (135-145); Total Protein 6.9 g/dl (6.3-8.2); eGFR > 60.00
--- NOTE | 2025-02-09 10:05 | W.PN.HOSP.TC ---
Today's Communication/Plan
-
pending further podiatry mgmt and subsequent tissue path and Cx
cont merrem
Assessment / Plan
Assessment / Plan
49yo M with DM, HLD, recent L great toe OM s/p L 1st partial ray amputation on 01/25/25 came with worsening wound and magots in the wound. Managed for reidual diabeticwound infection. As per previous wound Cx switched to merrem upon admission.
Planned for I&D by podiatry on 02/07/25
A/P:
#DM wound infection
#Acute OM
as per resection pathology from 01/25/25: Acute osteomyelitis, extending to bone resection margin
previous wound Cx: Proteus vulgaris, Proteus Penneri, Klebsiella oxytoca ESBL, GBS - switched to Merrem pending further ID
Podiatry consult: s/p I&D on 02/08/25. Plan for OR 02/09/25 for toe and transmetatarsal amputation
#DM type 1
cont insulin Lantus 20units, Lipro 5units AC
Accuchecks, insulin SS
DM diet
hold metformin
DVT ppx lovenox
Full code
I have spent at least 58min reviewing chart, test results, communication with consultants and providing direct patient care
Anticipated Discharge: > 48 hours
Subjective/Interval History
-
Date of Service: February 09, 2025
Objective Data
-
Labs:
Laboratory Results
02/09/25
07:30
WBC 9.5
Hgb 11.1 L
Hct 34.8 L
Plt Count 476 H
Sodium 138
Potassium 4.6
Chloride 101
Carbon Dioxide 30
BUN 18
Creatinine 0.9
Glucose 158 H
Calcium 9.2
Total Bilirubin 0.7
AST 15 L
ALT 15
Alkaline Phosphatase 118
Vital Signs:
Vital Signs
Temp Pulse Resp BP Pulse Ox
98.6 F 63 20 121/75 96
02/09/25 07:00 02/09/25 07:00 02/09/25 07:00 02/09/25 07:00 02/09/25 07:00
I&O
02/08/25 02/09/25 02/10/25
06:59 06:59 06:59
Intake Total 1320 / 1320
Output Total 1475 / 1475 1725 / 1725
Balance -155 / -155 -1725 / -1725
Review of Systems
-
History Source: Patient
All other systems: Reviewed and negative
Physical Exam
-
General: No Apparent Distress
HEENT: Normocephalic
Respiratory: Clear to Auscultation
GI: Soft, Nontender and Nondistended
Neuro: Awake, Alert, Oriented and AO x 3
Psych: Calm
--- NOTE | 2025-02-09 11:41 | W.PN.ID1 ---
Date of Service
Date of Service: February 09, 2025
Today's Communication
Continue meropenem
Assessment / Plan
# Left great toe osteomyelitis s/p partial ray amputation 01/25/25.
Of note bone path: Acute osteomyelitis extending to bone resection margin -> did not achieve surgical cure
# Left first toe amputation site with maggot infestation
# Leukocytosis, resolved
# Uncontrolled DM, HBA1c
- 02/07 s/p left hallux partial ray revision and debridement
OR cx Proteus, GNR
- To OR today for 2nd toe amp vs TMA
- Continue meropenem.
Chief Complaint
-: Other (foot infection)
Vital Signs / Physical Exam
Vital Signs
Vital Signs
Temp Pulse Resp BP Pulse Ox
98.6 F 63 20 121/75 96
02/09/25 07:00 02/09/25 07:00 02/09/25 07:00 02/09/25 07:00 02/09/25 07:00
Physical Exam
Constitutional: No Acute Distress
Cardiovascular: Regular Rate and S1/S2
Pulmonary: Clear
Gastrointestinal: Soft, Non Tender and Non Distended
Genito-Urinary: Negative CVA Tenderness
Extremities: Negative Edema
Wound: Other (left foot dressing dry)
Objective Data
Lab Data
Lab Results
02/09/25 07:30
02/09/25 07:30
PT 14.1 Sec (11.4-14.6) 02/07/25 07:55
INR 1.06 02/07/25 07:55
APTT 37.8 Sec (23.4-35.0) H 02/07/25 07:55
Estimated Creat Clear 97 ml/min 02/09/25 07:30
Total Bilirubin 0.7 mg/dl (0.2-1.3) 02/09/25 07:30
AST 15 U/L (17-59) L 02/09/25 07:30
ALT 15 U/L (0-50) 02/09/25 07:30
Alkaline Phosphatase 118 U/L (38-126) 02/09/25 07:30
Most recent labs reviewed.
Micro Results:
02/06/25 19:47 Wound Culture - Preliminary
Foot - Left Proteus species
Gram negative bacilli
Gram Stain - Preliminary
02/07/25 16:16 Wound Culture - Preliminary
Foot - Left Proteus species
Gram negative bacilli
Gram Stain - Preliminary
02/07/25 16:16 Anaerobic Culture - Preliminary
Foot - Left Culture pending. Anaerobic cultures are examined after 3
days incubation. Additional information to follow.
02/06/25 22:29 MRSA Screen - Final
Nose No Methicillin Resistant Staphylococcus aureus isolated.
[2025-02-09 11:51] LABS: Glucose - Point of Care 155 mg/dl (70-99)
[2025-02-09 13:11] LABS: Glucose - Point of Care 125 mg/dl (70-99)
[2025-02-09 13:31] VITALS: BP 111/76; BP 121/75
[2025-02-09 13:45] VITALS: BP 113/78
[2025-02-09 14:00] VITALS: BP 116/81
[2025-02-09 15:05] VITALS: BP 115/80
--- NOTE | 2025-02-09 15:33 | W.PN.SURGUPD ---
Surgical Update
Surgical Update
49 yo M s/p L 2nd toe amputation and debridement/washout of left foot
-1x pathology, 1x post washout culture
-Dressings can be changed daily starting POD#2
-Plan for return to OR on 02/13 for TMA vs closure
-Continue IV antibiotics
-Strict NWB to LLE
[2025-02-09 15:44] LABS: Glucose - Point of Care 156 mg/dl (70-99)
[2025-02-09] MEDS: NOVOLOG FLEXPEN 5 UNITS SC (15:44)
[2025-02-09] MEDS: NOVOLOG FLEXPEN-LOW RESISTANCE 1 UNITS SC (15:45)
[2025-02-09] MEDS: LOVENOX 40 MG SC (17:01)
[2025-02-09] MEDS: LIPITOR 20 MG PO (17:01)
[2025-02-09 21:29] LABS: Glucose - Point of Care 250 mg/dl (70-99)
[2025-02-09] MEDS: LANTUS 0.2 UNITS SC (21:43)
--- NOTE | 2025-02-09 22:07 | OR.RPT ---
Operative Report
Operative Report
Operative Report
Patient Name: Chito Simmons

Date of Surgery: 02/09/2025
Surgeon: Mauri Larkin DPM
Anesthesia: MAC with local anesthesia with 10 cc of 1% lidocaine plain
Preoperative Diagnosis:
Left 2nd toe osteomyelitis and forefoot skin and soft tissue infection
Postoperative Diagnosis:
Same as preoperative.
Procedures Performed:
Left 2nd toe amputation.
Excisional debridement and washout of plantar forefoot tissues.
Specimens:
Left 2nd toe sent for surgical pathology.
Post-washout tissue culture obtained.
Estimated Blood Loss: <20 mL
Complications: None
Drains: None
Indications for Procedure:
The patient is status post left open partial 1st ray amputation with wide debridement on 02/07/2025. He was found to have extensive forefoot necrosis from severe infection and the 2nd toe had evidence of acute infection. They returned with worsening
tissue viability and signs of persistent infection involving the right 2nd toe and plantar forefoot tissues. After discussion of risks, benefits, and alternatives, the patient consented to proceed with surgical amputation of the 2nd toe and repeat
debridement and washout of the plantar forefoot.
Procedure in Detail:
After proper identification of the patient and surgical site, the left foot was prepped and draped in the usual sterile fashion. MAC anesthesia was initiated. Local anesthesia was obtained with 10 cc of 1% lidocaine plain, infiltrated in a digital
block fashion around the 2nd toe and extended into the plantar forefoot as needed for complete anesthesia.
Attention was directed to the left 2nd toe. An incision was made circumferentially at the level of the proximal phalanx, carried down through skin and subcutaneous tissues. The toe was disarticulated at the metatarsophalangeal joint. The specimen
was passed off the field and sent to pathology for permanent section. Hemostasis was achieved with electrocautery.
Attention was then directed to the plantar forefoot wound. Sharp excisional debridement of all non-viable tissue was carried out using scalpel and rongeur down to muscle until healthy bleeding soft tissue margins were encountered. All fascial planes
were explored and there was no purulence encountered. The wound was copiously irrigated with several liters of normal saline using pulsatile lavage. A post-washout deep tissue culture was obtained and sent to microbiology. Following debridement and
irrigation, residual soft tissue appeared viable.
The surgical site was then packed with betadine soaked gauze and dressed with gauze, followed by dry dressings and a compressive wrap. The patient tolerated the procedure well without complication and was transferred to the recovery area in stable
condition. Patient will continue IV antibiotics and his open wound will be closed monitored. Will plan for return to the operating room for possible delayed primary closure vs transmetatarsal amputation next week.
[2025-02-09 23:03] VITALS: BP 141/78
[2025-02-10] MEDS: STERILE WATER FOR INJECTION 10 ML IV ×4 (04:48→21:34)
[2025-02-10] MEDS: MERREM 500 MG IV ×4 (04:48→21:33)
[2025-02-10 07:07] VITALS: BP 114/75
--- NOTE | 2025-02-10 07:53 | W.PN.UPDATE ---
Update Note
Progress Note Update
49 yo M s/p L 2nd toe amputation and debridement/washout of left foot. doing well this AM, anticipated postop pain. operative site with anticipated drainage. calves soft supple nontedner to touch
-1x pathology, 1x post washout culture
-Redressed today : skin edges painted with Betadine, Betadine dilute saline packing, dsd, markel
-Plan for return to OR on 02/13 for TMA vs closure
-Continue IV antibiotics
-Strict NWB to LLE
[2025-02-10 08:54] LABS: Glucose - Point of Care 186 mg/dl (70-99)
[2025-02-10] MEDS: ROXICODONE 5 MG PO ×2 (09:39→21:32)
[2025-02-10] MEDS: NOVOLOG FLEXPEN 5 UNITS SC ×3 (09:43→17:43)
[2025-02-10] MEDS: NOVOLOG FLEXPEN-LOW RESISTANCE 1 UNITS SC (09:44)
--- NOTE | 2025-02-10 10:46 | W.PN.HOSP.TC ---
Today's Communication/Plan
-
cont Abx pending plan for return to OR on 02/13 for TMA vs closure
Assessment / Plan
Assessment / Plan
49yo M with DM, HLD, recent L great toe OM s/p L 1st partial ray amputation on 01/25/25 came with worsening wound and magots in the wound. Managed for residual diabetic wound infection. As per previous wound Cx switched to merrem upon admission. I&D
done by podiatry on 02/07/25, then on 02/09/25 s/p toe and TMT amputation, pending Plan for return to OR on 02/13 for TMA vs closure, while on Abx as per ID
A/P:
#DM wound infection
#Acute OM
as per resection pathology from 01/25/25: Acute osteomyelitis, extending to bone resection margin
previous wound Cx: Proteus vulgaris, Proteus Penneri, Klebsiella oxytoca ESBL, GBS - switched to Merrem pending further ID
Podiatry consult: s/p I&D on 02/08/25. 02/09/25 s/p toe and transmetatarsal amputation, now plan for return to OR on 02/13 for TMA vs closure
#DM type 1
cont insulin Lantus 20units, Lipro 5units AC
Accuchecks, insulin SS
DM diet
hold metformin
DVT ppx lovenox
Full code
I have spent at least 58min reviewing chart, test results, communication with consultants and providing direct patient care
Anticipated Discharge: > 48 hours
Subjective/Interval History
-
Date of Service: February 10, 2025
Objective Data
-
Vital Signs:
Vital Signs
Temp Pulse Resp BP Pulse Ox
98.4 F 78 14 114/75 93
02/10/25 07:07 02/10/25 07:07 02/10/25 07:07 02/10/25 07:07 02/10/25 07:07
I&O
02/09/25 02/10/25 02/11/25
06:59 06:59 06:59
Intake Total 790 / 790
Output Total 1725 / 1725 1175 / 1175
Balance -1725 / -1725 -385 / -385
Review of Systems
-
History Source: Patient
All other systems: Reviewed and negative
Physical Exam
-
General: Well Developed, Well Nourished and No Apparent Distress
Neuro: Awake, Alert, Oriented and AO x 3
Psych: Calm
[2025-02-10 12:28] LABS: Glucose - Point of Care 236 mg/dl (70-99)
[2025-02-10] MEDS: NOVOLOG FLEXPEN-LOW RESISTANCE 2 UNITS SC ×2 (12:30→17:44)
[2025-02-10] MEDS: TYLENOL 650 MG PO (12:40)
--- NOTE | 2025-02-10 14:32 | CM ---
CM reviewed chart, plan for return to OR 02/13 for TMA vs closure. Patient remains on IV antibiotics. CM will continue to follow for all discharge planning needs.
Plan; return to OR 02/13
--- NOTE | 2025-02-10 14:40 | W.PN.ID1 ---
Date of Service
Date of Service: February 10, 2025
Today's Communication
Continue meropnem.
Assessment / Plan
# Left foot hallux residual osteo and wound infection with recent maggot infestation
. 01/07/25 Left great toe osteomyelitis s/p partial ray amputation 01/25/25.
bone path: Acute osteomyelitis extending to bone resection margin -> did not achieve surgical cure
. 02/07 s/p left hallux partial ray revision and debridement
OR cx Proteus, MDR ESBL-Klebsiella
Path pending
# Left 2nd toe osteo
. 02/09 s/p L 2nd toe amputation and debridement/washout of left foot
. OR cx and path pending
# Leukocytosis, resolved
# Uncontrolled DM, HBA1c
Plan:
- To OR Thursday for TMA vs closure per Podiatry
- Continue meropenem
- Continue contact isolation
Chief Complaint
-: Other (foot infection)
Subjective / Review of Systems
no pain
Vital Signs / Physical Exam
Vital Signs
Vital Signs
Temp Pulse Resp BP Pulse Ox
98.4 F 78 14 114/75 93
02/10/25 07:07 02/10/25 07:07 02/10/25 07:07 02/10/25 07:07 02/10/25 07:07
Physical Exam
Constitutional: No Acute Distress
Cardiovascular: Regular Rate and S1/S2
Pulmonary: Clear
Gastrointestinal: Soft, Non Tender and Non Distended
Genito-Urinary: Negative CVA Tenderness
Extremities: Negative Edema
Wound: Other (left foot dressing dry)
Neurological: AO x 3
Objective Data
Lab Data
Lab Results
02/09/25 07:30
02/09/25 07:30
PT 14.1 Sec (11.4-14.6) 02/07/25 07:55
INR 1.06 02/07/25 07:55
APTT 37.8 Sec (23.4-35.0) H 02/07/25 07:55
Estimated Creat Clear 97 ml/min 02/09/25 07:30
Total Bilirubin 0.7 mg/dl (0.2-1.3) 02/09/25 07:30
AST 15 U/L (17-59) L 02/09/25 07:30
ALT 15 U/L (0-50) 02/09/25 07:30
Alkaline Phosphatase 118 U/L (38-126) 02/09/25 07:30
Most recent labs reviewed.
Micro Results:
02/07/25 16:16 Anaerobic Culture - Preliminary
Foot - Left Culture pending. Anaerobic cultures are examined after 3
days incubation. Additional information to follow.
02/09/25 13:29 Anaerobic Culture - Preliminary
Foot - Left Culture pending. Anaerobic cultures are examined after 3
days incubation. Additional information to follow.
02/09/25 13:29 Wound Culture - Preliminary
Foot - Left Gram Stain - Preliminary
02/06/25 19:47 Wound Culture - Final
Foot - Left Proteus vulgaris
Klebsiella oxytoca - ESBL
Gram Stain - Final
02/07/25 16:16 Wound Culture - Preliminary
Foot - Left Proteus vulgaris
Klebsiella oxytoca - ESBL
Gram Stain - Preliminary
02/06/25 22:29 MRSA Screen - Final
Nose No Methicillin Resistant Staphylococcus aureus isolated.
[2025-02-10 17:40] LABS: Glucose - Point of Care 226 mg/dl (70-99)
[2025-02-10] MEDS: LIPITOR 20 MG PO (17:44)
[2025-02-10] MEDS: LOVENOX 40 MG SC (17:44)
[2025-02-10 17:56] VITALS: BP 114/71
[2025-02-10 21:31] LABS: Glucose - Point of Care 179 mg/dl (70-99)
[2025-02-10] MEDS: LANTUS 0.2 UNITS SC (21:33)
[2025-02-10 23:43] VITALS: BP 128/74
[2025-02-11] MEDS: STERILE WATER FOR INJECTION 10 ML IV ×4 (03:09→21:36)
[2025-02-11] MEDS: MERREM 500 MG IV ×4 (03:10→21:36)
[2025-02-11 07:00] VITALS: BP 167/86
[2025-02-11 07:18] LABS: Glucose - Point of Care 180 mg/dl (70-99)
[2025-02-11] MEDS: NOVOLOG FLEXPEN 5 UNITS SC ×3 (07:38→16:24)
[2025-02-11] MEDS: NOVOLOG FLEXPEN-LOW RESISTANCE 1 UNITS SC (07:39)
--- NOTE | 2025-02-11 07:40 | W.PN.HOSP.TC ---
Today's Communication/Plan
-
Increase Insulin for better glucose control in the setting of infection
See plan
Assessment / Plan
Assessment / Plan
Physical Exam
General: Well Developed, Well Nourished and No Apparent Distress
Cardiovascular: Regular Rate and S1/S2
Pulmonary: Clear
Gastrointestinal: Soft, Non Tender and Non Distended
Extremities: Left foot dressing dry
Neuro: AAOx3
Psych: Calm
Assessment/Plan
49 y/o male with past medical history of DM, HLD, recent left great toe OM s/p L 1st partial ray amputation on 01/25/25 came with worsening wound and magots in the wound. Managed for residual diabetic wound infection. As per previous wound Cx
switched to merrem upon admission. I&D done by podiatry on 02/07/25, then on 02/09/25 s/p toe and TMT amputation, pending Plan for return to OR on 02/13 for TMA vs closure, while on Abx as per ID
#DM wound infection
#Acute OM
as per resection pathology from 01/25/25: Acute osteomyelitis, extending to bone resection margin
previous wound Cx: Proteus vulgaris, Proteus Penneri, Klebsiella oxytoca ESBL, GBS - switched to Merrem pending further ID
Podiatry consult: s/p I&D on 02/08/25. 02/09/25 s/p toe and transmetatarsal amputation, now plan for return to OR on 02/13 for TMA vs closure
#DM type 1
cont insulin Lantus 20units increased to 22 units, Lipro 5units AC increased to 8 units given hyperglycemia
Accuchecks, insulin SS
DM diet
hold metformin
DVT ppx lovenox
Full code
Anticipated Discharge: > 48 hours
Subjective/Interval History
-
Date of Service: February 11, 2025
Patient was seen and examined. He reported some pain in his left foot, but no other complaints.
Objective Data
-
Vital Signs:
Vital Signs
Temp Pulse Resp BP Pulse Ox
97.9 F 73 18 128/74 96
02/10/25 23:43 02/10/25 23:43 02/10/25 23:43 02/10/25 23:43 02/10/25 23:43
I&O
02/10/25 02/11/25 02/12/25
06:59 06:59 06:59
Intake Total 790 / 790 600 / 600
Output Total 1175 / 1175
Balance -385 / -385 600 / 600
[2025-02-11 11:54] LABS: Glucose - Point of Care 248 mg/dl (70-99)
[2025-02-11] MEDS: NOVOLOG FLEXPEN-LOW RESISTANCE 2 UNITS SC ×2 (11:58→16:25)
[2025-02-11 15:00] VITALS: BP 149/80
[2025-02-11 16:21] LABS: Glucose - Point of Care 222 mg/dl (70-99)
[2025-02-11] MEDS: LOVENOX 40 MG SC (16:27)
[2025-02-11] MEDS: LIPITOR 20 MG PO (16:27)
[2025-02-11] MEDS: LANTUS 0.22 UNITS SC (21:36)
[2025-02-11 21:37] LABS: Glucose - Point of Care 232 mg/dl (70-99)
[2025-02-11 21:58] LABS: Hematocrit 32.1 % (39.0-52.0); Hemoglobin 10.8 g/dL (13.0-18.0); Mean Corp Hgb Conc. 33.6 g/dL (33.0-37.0); Mean Corpuscular Volume 85.1 fL (80.0-94.0); Platelet Count 492 10^3/uL (130-400); Red Cell Dist. Width 11.4 % (11.5-14.5)
[2025-02-11 23:33] VITALS: BP 140/78
[2025-02-12] MEDS: MERREM 500 MG IV ×4 (03:40→21:06)
[2025-02-12] MEDS: STERILE WATER FOR INJECTION 10 ML IV ×4 (03:41→21:07)
[2025-02-12 06:27] LABS: Blood Urea Nitrogen 15 mg/dl (9-20); Calcium 9.0 mg/dl (8.4-10.2); Carbon Dioxide 28 mmol/L (22-30); Chloride 103 mmol/L (98-107); Estimated Creatinine Clearance > 125 ml/min; Glucose 169 mg/dl (70-99); Potassium 4.5 mmol/L (3.5-5.1); Sodium 137 mmol/L (135-145); eGFR > 60.00
[2025-02-12 07:55] VITALS: BP 143/88
[2025-02-12 08:18] LABS: Glucose - Point of Care 160 mg/dl (70-99)
[2025-02-12] MEDS: NOVOLOG FLEXPEN 8 UNITS SC ×3 (09:13→17:48)
[2025-02-12] MEDS: NOVOLOG FLEXPEN-LOW RESISTANCE 1 UNITS SC (09:14)
[2025-02-12 11:46] LABS: Glucose - Point of Care 245 mg/dl (70-99)
[2025-02-12] MEDS: NOVOLOG FLEXPEN-LOW RESISTANCE 2 UNITS SC (12:56)
[2025-02-12 15:00] VITALS: BP 135/80
--- NOTE | 2025-02-12 15:08 | W.PN.HOSP.TC ---
Today's Communication/Plan
-
NPO after midnight for surgery tomorrow
Insulin doses to be reduced given NPO status after midnight
Assessment / Plan
Assessment / Plan
Physical Exam
General: Well Developed, Well Nourished and No Apparent Distress
Cardiovascular: Regular Rate and S1/S2
Pulmonary: Clear
Gastrointestinal: Soft, Non Tender and Non Distended
Extremities: Left foot dressing dry
Neuro: AAOx3
Psych: Calm
Assessment/Plan
49 y/o male with past medical history of DM, HLD, recent left great toe OM s/p L 1st partial ray amputation on 01/25/25 came with worsening wound and magots in the wound. Managed for residual diabetic wound infection. As per previous wound Cx
switched to merrem upon admission. I&D done by podiatry on 02/07/25, then on 02/09/25 s/p toe and TMT amputation, pending Plan for return to OR on 02/13 for TMA vs closure, while on Abx as per ID
#DM wound infection
#Acute OM
as per resection pathology from 01/25/25: Acute osteomyelitis, extending to bone resection margin
previous wound Cx: Proteus vulgaris, Proteus Penneri, Klebsiella oxytoca ESBL, GBS - switched to Merrem pending further ID
Podiatry consult: s/p I&D on 02/08/25. 02/09/25 s/p toe and transmetatarsal amputation, now plan for return to OR on 02/13 for TMA vs closure
NPO after midnight
#DM type 1
Insulin Lantus 20units increased (on 02/11/25) to 22 units, Lipro 5units AC increased (on 02/11/25) to 8 units given hyperglycemia
Given patient will be NPO after midnight, will reduce Insulin dose for tonight. Hold premeal Insulin after today.
Accuchecks, insulin SS
DM diet
hold metformin
DVT ppx lovenox
Full code
Anticipated Discharge: > 48 hours
Subjective/Interval History
-
Date of Service: February 12, 2025
Patient was seen and examined. He denied any significant pain or any other symptoms or complaints.
Objective Data
-
Labs:
Laboratory Results
02/12/25
04:54
Sodium 137
Potassium 4.5
Chloride 103
Carbon Dioxide 28
BUN 15
Creatinine 0.6 L
Glucose 169 H
Calcium 9.0
Vital Signs:
Vital Signs
Temp Pulse Resp BP Pulse Ox
98.3 F 68 16 143/88 98
02/12/25 07:55 02/12/25 07:55 02/12/25 07:55 02/12/25 07:55 02/12/25 11:21
I&O
02/11/25 02/12/25 02/13/25
06:59 06:59 06:59
Intake Total 600 / 600 1440 / 1440
Output Total 600 / 600
Balance 600 / 600 840 / 840
[2025-02-12 17:49] LABS: Glucose - Point of Care 265 mg/dl (70-99)
[2025-02-12] MEDS: NOVOLOG FLEXPEN-LOW RESISTANCE 3 UNITS SC (17:49)
[2025-02-12] MEDS: LOVENOX 40 MG SC (17:50)
[2025-02-12] MEDS: LIPITOR 20 MG PO (17:50)
[2025-02-12 21:10] LABS: Glucose - Point of Care 145 mg/dl (70-99)
[2025-02-12] MEDS: LANTUS 0.17 UNITS SC (22:50)
[2025-02-12 23:40] VITALS: BP 155/62
[2025-02-13] VITALS (25 sets, daily range): BP systolic 88–127; BP diastolic 63–74
[2025-02-13] MEDS: STERILE WATER FOR INJECTION 10 ML IV ×4 (04:04→22:41)
[2025-02-13] MEDS: MERREM 500 MG IV ×4 (04:04→22:41)
[2025-02-13 05:35] LABS: Glucose - Point of Care 157 mg/dl (70-99)
[2025-02-13 07:54] LABS: Glucose - Point of Care 148 mg/dl (70-99)
[2025-02-13] MEDS: NOVOLOG FLEXPEN-LOW RESISTANCE SC ×2 (07:55→12:35)
[2025-02-13 08:04] LABS: Hematocrit 35.0 % (39.0-52.0); Hemoglobin 11.5 g/dL (13.0-18.0); Mean Corp Hgb Conc. 32.9 g/dL (33.0-37.0); Mean Corpuscular Volume 84.7 fL (80.0-94.0); Platelet Count 527 10^3/uL (130-400); Red Cell Dist. Width 11.5 % (11.5-14.5)
[2025-02-13 08:17] LABS: Blood Urea Nitrogen 19 mg/dl (9-20); Calcium 9.0 mg/dl (8.4-10.2); Carbon Dioxide 27 mmol/L (22-30); Chloride 104 mmol/L (98-107); Estimated Creatinine Clearance 125 ml/min; Glucose 145 mg/dl (70-99); Potassium 4.5 mmol/L (3.5-5.1); Sodium 138 mmol/L (135-145); eGFR > 60.00
--- NOTE | 2025-02-13 10:52 | W.PN.ID1 ---
Date of Service
Date of Service: February 13, 2025
Today's Communication
Continue meropenem.
Assessment / Plan
# Left foot hallux residual osteo and wound infection with recent maggot infestation
. 01/07/25 Left great toe osteomyelitis s/p partial ray amputation 01/25/25.
bone path: Acute osteomyelitis extending to bone resection margin -> did not achieve surgical cure
. 02/07 s/p left hallux partial ray revision and debridement
OR cx Proteus, MDR ESBL-Klebsiella
Path: left first metatarsal acute osteo
# Left 2nd toe osteo
. 02/09 s/p L 2nd toe amputation and debridement/washout of left foot
. OR cx Proteus
. path pending
# Leukocytosis, resolved
# Uncontrolled DM, HBA1c
Plan:
- To OR today for TMA vs closure per Podiatry
Hoping for surgical cure
- Continue meropenem
- Continue contact isolation
Chief Complaint
-: Other (foot infection)
Subjective / Review of Systems
No complaints.
Vital Signs / Physical Exam
Vital Signs
Vital Signs
Temp Pulse Resp BP Pulse Ox
98.0 F 66 16 127/74 98
02/13/25 07:00 02/13/25 07:00 02/13/25 07:00 02/13/25 07:00 02/13/25 07:00
Physical Exam
Constitutional: No Acute Distress
Cardiovascular: Regular Rate and S1/S2
Pulmonary: Clear
Gastrointestinal: Soft, Non Tender and Non Distended
Genito-Urinary: Negative CVA Tenderness
Extremities: Negative Edema
Wound: Other (left foot dressing dry)
Neurological: AO x 3
Objective Data
Lab Data
Lab Results
02/13/25 07:23
02/13/25 07:23
PT 14.1 Sec (11.4-14.6) 02/07/25 07:55
INR 1.06 02/07/25 07:55
APTT 37.8 Sec (23.4-35.0) H 02/07/25 07:55
Estimated Creat Clear 125 ml/min 02/13/25 07:23
Total Bilirubin 0.7 mg/dl (0.2-1.3) 02/09/25 07:30
AST 15 U/L (17-59) L 02/09/25 07:30
ALT 15 U/L (0-50) 02/09/25 07:30
Alkaline Phosphatase 118 U/L (38-126) 02/09/25 07:30
Most recent labs reviewed.
Micro Results:
02/09/25 13:29 Anaerobic Culture - Preliminary
Foot - Left NO ANAEROBES ISOLATED
02/09/25 13:29 Wound Culture - Preliminary
Foot - Left Proteus vulgaris
Gram Stain - Preliminary
02/07/25 16:16 Wound Culture - Final
Foot - Left Proteus vulgaris
Klebsiella oxytoca - ESBL
Gram Stain - Final
02/07/25 16:16 Anaerobic Culture - Final
Foot - Left NO ANAEROBES ISOLATED
02/06/25 19:47 Wound Culture - Final
Foot - Left Proteus vulgaris
Klebsiella oxytoca - ESBL
Gram Stain - Final
02/06/25 22:29 MRSA Screen - Final
Nose No Methicillin Resistant Staphylococcus aureus isolated.
[2025-02-13 12:09] LABS: Glucose - Point of Care 143 mg/dl (70-99)
--- NOTE | 2025-02-13 14:23 | W.PN.UPDATE ---
Update Note
Progress Note Update
49 yo M s/p L Delayed Primary Closure with metatarsal 1/2 resection revision
- Strict NWB LLE, will order darco offloading shoe
- transition to PO abx
- Dressing changes M/W/F algenate DSD, markel
- will reassess on AM rounds
[2025-02-13 14:32] LABS: Glucose - Point of Care 128 mg/dl (70-99)
[2025-02-13 16:56] LABS: Glucose - Point of Care 154 mg/dl (70-99)
--- NOTE | 2025-02-13 17:25 | CM ---
For OR today.
Pt has wc walker in home.
Pt is a patient of [facility].
[facility] saw patient .
PLAN Home no needs
[2025-02-13] MEDS: LOVENOX 40 MG SC (17:45)
[2025-02-13] MEDS: LIPITOR 20 MG PO (17:45)
[2025-02-13] MEDS: NOVOLOG FLEXPEN-LOW RESISTANCE 1 UNITS SC (17:46)
--- NOTE | 2025-02-13 20:28 | W.PN.HOSP.TC ---
Today's Communication/Plan
-
See plan
Assessment / Plan
Assessment / Plan
Physical Exam
General: Well Developed, Well Nourished and No Apparent Distress
Cardiovascular: Regular Rate and S1/S2
Pulmonary: Clear
Gastrointestinal: Soft, Non Tender and Non Distended
Extremities: Left foot dressing dry
Neuro: AAOx3
Psych: Calm
Assessment/Plan
49 y/o male with past medical history of DM, HLD, recent left great toe OM s/p L 1st partial ray amputation on 01/25/25 came with worsening wound and magots in the wound. Managed for residual diabetic wound infection. As per previous wound Cx
switched to merrem upon admission. I&D done by podiatry on 02/07/25, then on 02/09/25 s/p toe and TMT amputation, pending Plan for return to OR on 02/13 for TMA vs closure, while on Abx as per ID
#DM wound infection
#Acute OM
#Left foot hallux residual osteo and wound infection with recent maggot infestation
01/07/25 Left great toe osteomyelitis s/p partial ray amputation 01/25/25 -- bone path: Acute osteomyelitis extending to bone resection margin -> did not achieve surgical cure
02/07 s/p left hallux partial ray revision and debridement; OR cx Proteus, MDR ESBL-Klebsiella; Path: left first metatarsal acute osteo
previous wound Cx: Proteus vulgaris, Proteus Penneri, Klebsiella oxytoca ESBL, GBS - continue Meropenem
Podiatry consult: s/p I&D on 02/08/25. 02/09/25 s/p toe and transmetatarsal amputation, on 02/13/25 surgery: Left foot metatarsal 1 and 2 partial resection as well as delayed primary closure
Resume diabetic diet post-op
# Left 2nd toe osteomyelitis
-02/09 s/p L 2nd toe amputation and debridement/washout of left foot; OR culture showed Proteus
-On 02/13/25 surgery: Left foot metatarsal 1 and 2 partial resection as well as delayed primary closure
#DM type 1
Resume Diabetic Diet post-op 02/13/25
Based on patient's glucose trends, will adjust Insulin
Accuchecks, insulin SS
DM diet
hold metformin
DVT ppx lovenox
Full code
Anticipated Discharge: > 48 hours
Subjective/Interval History
-
Date of Service: February 13, 2025
Patient was seen and examined. He denied any complaints.
Objective Data
-
Vital Signs:
Vital Signs
Temp Pulse Resp BP Pulse Ox
97.9 F 74 16 103/68 95
02/13/25 20:00 02/13/25 20:00 02/13/25 20:00 02/13/25 20:00 02/13/25 20:00
I&O
02/12/25 02/13/25 02/14/25
06:59 06:59 06:59
Intake Total 1440 / 1440 1680 / 1680 750 / 750
Output Total 600 / 600 500 / 500
Balance 840 / 840 1180 / 1180 750 / 750
[2025-02-13 21:40] LABS: Glucose - Point of Care 326 mg/dl (70-99)
[2025-02-13] MEDS: LANTUS 0.17 UNITS SC (22:39)
[2025-02-14] VITALS (9 sets, daily range): BP systolic 104–124; BP diastolic 63–72; PULSE 70; O2SAT 98
[2025-02-14] MEDS: MERREM 500 MG IV ×2 (04:36→10:38)
[2025-02-14] MEDS: STERILE WATER FOR INJECTION 10 ML IV ×2 (04:36→10:38)
[2025-02-14 08:02] LABS: Glucose - Point of Care 186 mg/dl (70-99)
[2025-02-14] MEDS: NOVOLOG FLEXPEN-LOW RESISTANCE 2 UNITS SC (08:04)
[2025-02-14 08:13] LABS: Hematocrit 32.5 % (39.0-52.0); Hemoglobin 10.8 g/dL (13.0-18.0); Mean Corp Hgb Conc. 33.2 g/dL (33.0-37.0); Mean Corpuscular Volume 84.6 fL (80.0-94.0); Platelet Count 556 10^3/uL (130-400); Red Cell Dist. Width 11.5 % (11.5-14.5)
--- NOTE | 2025-02-14 08:54 | W.PN.UPDATE ---
Update Note
Progress Note Update
49 yo M s/p L Delayed Primary Closure with metatarsal 1/2 resection revision. Doing well this AM, no pain. no tenderness to palpation of calves, CFT wnl, motor function intact to toes.
- Strict NWB LLE, darco offloading shoe LLE
- transition to PO abx, per ID recs
- Dressings to be changed M/W/F betadine paint to incision, algenate DSD, markel
- patient may follow up in office
[2025-02-14 09:32] LABS: Blood Urea Nitrogen 26 mg/dl (9-20); Calcium 8.9 mg/dl (8.4-10.2); Carbon Dioxide 24 mmol/L (22-30); Chloride 105 mmol/L (98-107); Estimated Creatinine Clearance 125 ml/min; Glucose 171 mg/dl (70-99); Potassium 4.7 mmol/L (3.5-5.1); Sodium 137 mmol/L (135-145); eGFR > 60.00
[2025-02-14 11:24] LABS: Glucose - Point of Care 295 mg/dl (70-99)
[2025-02-14] MEDS: NOVOLOG FLEXPEN-LOW RESISTANCE 3 UNITS SC (11:33)
--- NOTE | 2025-02-14 12:09 | W.PN.ID1 ---
Date of Service
Date of Service: February 14, 2025
Today's Communication
Transition meropenem to Bactrim DS 1 tab po bid x 7 more days.
ID will sign off.
Assessment / Plan
# Left foot hallux residual osteo and wound infection with recent maggot infestation
. 01/07/25 Left great toe osteomyelitis s/p partial ray amputation 01/25/25.
bone path: Acute osteomyelitis extending to bone resection margin -> did not achieve surgical cure
. 02/07 s/p left hallux partial ray revision and debridement
OR cx Proteus, MDR ESBL-Klebsiella
Path: left first metatarsal acute osteo
# Left 2nd toe osteo
. 02/09 s/p L 2nd toe amputation and debridement/washout of left foot
. OR cx Proteus
. path pending
# Leukocytosis, post-op
# Uncontrolled DM, HBA1c
Plan:
- 02/13/25 s/p L first and second metatarsal partial resection and delayed primary closure
Suspect surgical cure
- Transition meropenem to Bactrim DS 1 tab po bid x 7 more days.
- Continue contact isolation
ID will sign off.
Chief Complaint
-: Other (foot infection)
Subjective / Review of Systems
Ambulated well.
Vital Signs / Physical Exam
Vital Signs
Vital Signs
Temp Pulse Resp BP Pulse Ox
98.0 F 68 20 124/72 100
02/14/25 11:30 02/14/25 11:30 02/14/25 11:30 02/14/25 11:30 02/14/25 11:30
Physical Exam
Constitutional: No Acute Distress
Cardiovascular: Regular Rate and S1/S2
Pulmonary: Clear
Gastrointestinal: Soft, Non Tender and Non Distended
Genito-Urinary: Negative CVA Tenderness
Extremities: Negative Edema
Wound: Other (left foot dressing dry)
Neurological: AO x 3
Objective Data
Lab Data
Lab Results
02/14/25 07:23
02/14/25 07:23
PT 14.1 Sec (11.4-14.6) 02/07/25 07:55
INR 1.06 02/07/25 07:55
APTT 37.8 Sec (23.4-35.0) H 02/07/25 07:55
Estimated Creat Clear 125 ml/min 02/14/25 07:23
Total Bilirubin 0.7 mg/dl (0.2-1.3) 02/09/25 07:30
AST 15 U/L (17-59) L 02/09/25 07:30
ALT 15 U/L (0-50) 02/09/25 07:30
Alkaline Phosphatase 118 U/L (38-126) 02/09/25 07:30
Most recent labs reviewed.
Micro Results:
02/09/25 13:29 Anaerobic Culture - Preliminary
Foot - Left NO ANAEROBES ISOLATED
02/09/25 13:29 Wound Culture - Preliminary
Foot - Left Proteus vulgaris
Gram Stain - Preliminary
02/07/25 16:16 Wound Culture - Final
Foot - Left Proteus vulgaris
Klebsiella oxytoca - ESBL
Gram Stain - Final
02/07/25 16:16 Anaerobic Culture - Final
Foot - Left NO ANAEROBES ISOLATED
02/06/25 19:47 Wound Culture - Final
Foot - Left Proteus vulgaris
Klebsiella oxytoca - ESBL
Gram Stain - Final
02/06/25 22:29 MRSA Screen - Final
Nose No Methicillin Resistant Staphylococcus aureus isolated.
--- NOTE | 2025-02-14 12:36 | W.PN.HOSP.TC ---
Today's Communication/Plan
-
See plan and disposition details below
Assessment / Plan
Assessment / Plan
Physical Exam
General: Well Developed, Well Nourished and No Apparent Distress
Cardiovascular: Regular Rate and S1/S2
Pulmonary: Clear
Gastrointestinal: Soft, Non Tender and Non Distended
Extremities: Left foot dressing dry
Neuro: AAOx3
Psych: Calm
Assessment/Plan
49 y/o male with past medical history of DM, HLD, recent left great toe OM s/p L 1st partial ray amputation on 01/25/25 came with worsening wound and magots in the wound. Managed for residual diabetic wound infection. As per previous wound Cx
switched to merrem upon admission. I&D done by podiatry on 02/07/25, then on 02/09/25 s/p toe and TMT amputation, pending Plan for return to OR on 02/13 for TMA vs closure, while on Abx as per ID
#DM wound infection
#Acute OM
#Left foot hallux residual osteo and wound infection with recent maggot infestation
01/07/25 Left great toe osteomyelitis s/p partial ray amputation 01/25/25 -- bone path: Acute osteomyelitis extending to bone resection margin -> did not achieve surgical cure
02/07 s/p left hallux partial ray revision and debridement; OR cx Proteus, MDR ESBL-Klebsiella; Path: left first metatarsal acute osteo
previous wound Cx: Proteus vulgaris, Proteus Penneri, Klebsiella oxytoca ESBL, GBS - Transition meropenem to Bactrim DS 1 tab po bid x 7 more days (Day 1 is 02/14/25)
Podiatry consult: s/p I&D on 02/08/25. 02/09/25 s/p toe and transmetatarsal amputation, on 02/13/25 surgery: Left foot metatarsal 1 and 2 partial resection as well as delayed primary closure
Continue Diabetic Diet
# Left 2nd toe osteomyelitis
-02/09 s/p L 2nd toe amputation and debridement/washout of left foot; OR culture showed Proteus
-On 02/13/25 surgery: Left foot metatarsal 1 and 2 partial resection as well as delayed primary closure
#DM type 1
Resume Diabetic Diet post-op 02/13/25 -- patient says he is eating and drinking very well
Accuchecks, insulin SS
DM diet
hold metformin
DVT ppx lovenox
Full code
Disposition: I had an extensive discussion with case management today, patient does not have insurance and can get other kinds of funding for wound care supplies and treatment with home visiting nurse, tomorrow will need to discuss with Cora
Efrain (case management assistant), Deanna Morrison (case management assistant), wound/ostomy nurse and podiatry team (Dr. Larkin and Dr. Brunson) about the little details of what kind of supplies, for what duration and exact method of wound care. Patient stated that he
has no problem affording the Bactrim.
Anticipated Discharge: 24 - 48 hours
Subjective/Interval History
-
Date of Service: February 14, 2025
Patient was seen and examined. He denied any complaints.
Objective Data
-
Labs:
Laboratory Results
02/14/25
07:23
WBC 15.6 H
Hgb 10.8 L
Hct 32.5 L
Plt Count 556 H
Sodium 137
Potassium 4.7
Chloride 105
Carbon Dioxide 24
BUN 26 H
Creatinine 0.7
Glucose 171 H
Calcium 8.9
Vital Signs:
Vital Signs
Temp Pulse Resp BP Pulse Ox
98.0 F 68 20 124/72 100
02/14/25 11:30 02/14/25 11:30 02/14/25 11:30 02/14/25 11:30 02/14/25 11:30
I&O
02/13/25 02/14/25 02/15/25
06:59 06:59 06:59
Intake Total 1680 / 1680 750 / 750
Output Total 500 / 500 300 / 300
Balance 1180 / 1180 450 / 450
[2025-02-14] MEDS: BACTRIM DS 800 MG/160 MG 1 TABLET PO ×2 (14:07→21:36)
--- NOTE | 2025-02-14 15:26 | CM ---
CM reviewed pt with attending- medically ready for dc
Pt will need wound care M/W/F, he was a WC and WW already
Call with [employer]- pt not eligible for MA as he is over-resourced (approx $3200 monthly)
Bedside visit with pt
He plans to dc to ex-'s house at [address] [place] [id number]
Ex- and dtr/25 y/o Linda will assist with wound care
He noted during last discharge, he went to a friend's house and returned to work quickly
He is aware he will not be able to return to work as he is NWB LLE
Pt will need 7 days of oral Bactrim BID per ID note, call to [employer] and pt able to afford nixon [employer] (approx $10)
He is not able to afford wound care supplies and private pay visiting nurse as he is out of work and without income stream currently
Call with out wound center- no immediate availability to service until next week
Conference call with [facility] music manager/María Downing and [facility] liaison
Referral made to [facility] with request with [facility] to be payor source for visits- awaiting determination
[facility] will be PCP
Pt will also need wound care supplies to be covered- may need VIA funding
CM will continue to follow for dc planning
Discharge Disposition- home with VN ( possibly [facility] and VIA funds for wound supplies)
--- NOTE | 2025-02-14 15:49 | VNURNOTE ---
Addendum entered by María Booker RN 02/15/25 11:46:
Spoke with Catherine Downing from [facility]. She stated now unsure of billing /payor coverage for VN. She confirmed that [facility] has made appt for pt with Dr Woodward 02/21. They will reach out to wound care center to schedule an
appt with him. Per Catherine Wang, he has appt with V[facility] Dr tomorrow. Daughter Linda willing to learn wound care and will be available to do at home. HARITHA Hernandes will show her wound care process prior to DC today.
[facility] happy to take on patient if billing process clarified/confirmed w/ [facility]. They have [facility] medical billing coordinator contact.
Hydro Mechanic Karey Mcgraw and EVAN Tolbert updated.
No referral sent at this time.
Original Note:
Chart reviewed. Not [employer] eligible, no insurance. No PCP. Discussed case with [facility] transportation department supervisor Karey. Was advised pt has to sign financial consent to pay for VN visits: $227/visit.
Was updated that pt unable to pay for VN visits or wound care supplies.
He is known to [facility]. Spoke with Catherine Downing at clinic who stated they will be payor for VN costs. Per Catherine, she will clarify Dr to oversee VN. Per [facility] transportation department supervisor, [facility] needs add'l info on billing before proceeding.
Awaiting details from [facility]: Which Dr to sign for VN services and billing clarification for VN services. (Can contact [facility] medical billing coordinator Markie Anne directly)
PM-VN referral in SAVED status.
[2025-02-14 17:02] LABS: Glucose - Point of Care 177 mg/dl (70-99)
[2025-02-14] MEDS: LIPITOR 20 MG PO (17:20)
[2025-02-14] MEDS: LOVENOX 40 MG SC (17:20)
[2025-02-14] MEDS: NOVOLOG FLEXPEN-LOW RESISTANCE 1 UNITS SC (17:21)
[2025-02-14 20:56] LABS: Glucose - Point of Care 224 mg/dl (70-99)
[2025-02-14 22:13] LABS: Glucose - Point of Care 252 mg/dl (70-99)
[2025-02-14] MEDS: LANTUS 0.2 UNITS SC (22:13)
[2025-02-15 07:10] VITALS: BP 127/73
[2025-02-15 07:20] LABS: Glucose - Point of Care 130 mg/dl (70-99)
[2025-02-15 07:26] LABS: Hematocrit 32.6 % (39.0-52.0); Hemoglobin 10.6 g/dL (13.0-18.0); Mean Corp Hgb Conc. 32.5 g/dL (33.0-37.0); Mean Corpuscular Volume 85.6 fL (80.0-94.0); Platelet Count 493 10^3/uL (130-400); Red Cell Dist. Width 11.7 % (11.5-14.5)
[2025-02-15] MEDS: BACTRIM DS 800 MG/160 MG 1 TABLET PO (07:26)
[2025-02-15] MEDS: NOVOLOG FLEXPEN-LOW RESISTANCE SC (07:28)
[2025-02-15 08:14] LABS: Blood Urea Nitrogen 20 mg/dl (9-20); Calcium 8.9 mg/dl (8.4-10.2); Carbon Dioxide 27 mmol/L (22-30); Chloride 106 mmol/L (98-107); Estimated Creatinine Clearance 109 ml/min; Glucose 123 mg/dl (70-99); Potassium 4.4 mmol/L (3.5-5.1); Sodium 139 mmol/L (135-145); eGFR > 60.00
--- NOTE | 2025-02-15 08:52 | W.PN.HOSP.TC ---
Today's Communication/Plan
-
Discharge today
Assessment / Plan
Assessment / Plan
Physical Exam
General: Well Developed, Well Nourished and No Apparent Distress
Cardiovascular: Regular Rate and S1/S2
Pulmonary: Clear to Auscultation Bilaterally
Gastrointestinal: Soft, Non Tender and Non Distended. Positive bowel sounds.
Extremities: Left foot dressing dry
Neuro: AAOx3
Psych: Calm
Assessment/Plan
49 y/o male with past medical history of DM, HLD, recent left great toe OM s/p L 1st partial ray amputation on 01/25/25 came with worsening wound and magots in the wound. Managed for residual diabetic wound infection. As per previous wound Cx
switched to merrem upon admission. I&D done by podiatry on 02/07/25, then on 02/09/25 s/p toe and TMT amputation, pending Plan for return to OR on 02/13 for TMA vs closure, while on Abx as per ID
#DM wound infection
#Acute OM
#Left foot hallux residual osteo and wound infection with recent maggot infestation
01/07/25 Left great toe osteomyelitis s/p partial ray amputation 01/25/25 -- bone path: Acute osteomyelitis extending to bone resection margin -> did not achieve surgical cure
02/07 s/p left hallux partial ray revision and debridement; OR cx Proteus, MDR ESBL-Klebsiella; Path: left first metatarsal acute osteo
previous wound Cx: Proteus vulgaris, Proteus Penneri, Klebsiella oxytoca ESBL, GBS - Transition meropenem to Bactrim DS 1 tab po bid x 7 more days (Day 1 is 02/14/25)
Podiatry consult: s/p I&D on 02/08/25. 02/09/25 s/p toe and transmetatarsal amputation, on 02/13/25 surgery: Left foot metatarsal 1 and 2 partial resection as well as delayed primary closure
Continue Diabetic Diet
Continue M/W/F wound care
Activity: Strict NWB LLE, darco offloading shoe LLE
# Left 2nd toe osteomyelitis
-02/09 s/p L 2nd toe amputation and debridement/washout of left foot; OR culture showed Proteus
-On 02/13/25 surgery: Left foot metatarsal 1 and 2 partial resection as well as delayed primary closure
#DM type 1
Resume Diabetic Diet post-op 02/13/25 -- patient says he is eating and drinking very well
Accuchecks, insulin SS
DM diet
hold metformin for now
DVT Prophylaxis: Lovenox
Code Status: Full code
Disposition
-On 02/14/25, I had an extensive discussion with case management, patient does not have insurance and can get other kinds of funding for wound care supplies and treatment with home visiting nurse, tomorrow will need to discuss with Cora Zuniga
(counseling case manager), Deanna Morrison (counseling case manager), wound/ostomy nurse and podiatry team (Dr. Larkin and Dr. Brunson) about the little details of what kind of supplies, for what duration and exact method of wound care. Patient stated that he has no
problem affording the Bactrim.
-On 02/15/25, I had an extensive discussion with case management, patient's nurse, patient, patient's daughter Linda and patient's clay pigeon setter, Dr. Brunson. Patient's daughter Linda stated that patient's can do the wound care at home.
Nurse Cecilio showed patient and his daughter Linda how to do dressing changes. Wound care supplies will be provided. Patient and his daughter Linda grateful for care and looking for patient to be discharged today.
More than 30 minutes spent in discharge including
Final examination of the patient
Summarizing hospital stay
Instructions for continuing care to all relevant caregivers
Preparation of discharge records, prescriptions, and referral forms
Total time spent (in minutes): 45
Anticipated Discharge: Today
Subjective/Interval History
-
Date of Service: February 15, 2025
Patient was seen and examined. He denied any fever, any significant pain or any other complaints.
Objective Data
-
Labs:
Laboratory Results
02/15/25
06:56
WBC 10.7
Hgb 10.6 L
Hct 32.6 L
Plt Count 493 H
Sodium 139
Potassium 4.4
Chloride 106
Carbon Dioxide 27
BUN 20
Creatinine 0.8
Glucose 123 H
Calcium 8.9
Vital Signs:
Vital Signs
Temp Pulse Resp BP Pulse Ox
98.2 F 95 18 127/73 99
02/15/25 07:10 02/15/25 07:10 02/15/25 07:10 02/15/25 07:10 02/15/25 07:10
I&O
02/14/25 02/15/25 02/16/25
06:59 06:59 06:59
Intake Total 750 / 750 300 / 300
Output Total 300 / 300
Balance 450 / 450 300 / 300
[2025-02-15 11:22] LABS: Glucose - Point of Care 178 mg/dl (70-99)
--- NOTE | 2025-02-15 11:22 | WOUNDNOTE ---
ROXY RN NOTE: Confirmed with nurse Hernandes that he is comfortable with teaching family wound care. Dressing orders already received from [employer], states nurse. Dr. Collins and Dr. Brunson agree with the above, can cancel wound consult.
--- NOTE | 2025-02-15 12:40 | CM ---
Addendum entered by Ana Flores 02/15/25 14:41:
Patient seen bedside with daughter, provided with supplies for wound care, provided $25 for additional supplies.
Original Note:
CM reviewed chart, reviewed with Hospitalist, Nurse, [facility] Liaison. Patient seen bedside with Daughter, Daughter comfortable with learning wound care, Nurse to provide teaching. Supplies provided to patient/daughter for wound care. Patient scheduled
for follow up appointment 02/[address] Bustillo. [facility] liaison and CM spoke with Catherine Downing from [facility], unsure how billing would be covered for VN, will confirm with wound care center when patient is scheduled for wound care
appointment. Daughter confirms she will provide transportation home, mother will also assist with wound care. No additional questions from patient/daughter (Linda) at this time. CM will continue to follow for all discharge planning needs.
Plan; home with family support, follow up with [facility], wound care supplies provided
[2025-02-15] MEDS: NOVOLOG FLEXPEN-LOW RESISTANCE 1 UNITS SC (12:44)
--- NOTE | 2025-02-15 13:39 | W.PN.UPDATE ---
Update Note
Progress Note Update
49 yo M s/p L Delayed Primary Closure with metatarsal 1/2 resection revision. Doing well this AM, no pain. no tenderness to palpation of calves, CFT wnl, motor function intact to toes. Sutures in place, no drainage, no erythema
- Strict NWB LLE, darco offloading shoe LLE
- transition to PO abx, per ID recs
- Dressings to be changed M/W/F betadine paint to incision, algenate DSD, markel
- Dressings changed today
- patient may follow up in office
--- NOTE | 2025-02-15 14:43 | W.DCSUMMARY ---
Discharge Summary
Discharge Data
Date of Admission: 02/06/25
Date of Discharge: 02/15/25
Total time spent discharging patient (in min): 45
-
Pending Results: Yes
Additional Pending Results:
Pathology/Biopsy results from hospitalization
Hospital Course
49-year-old male with past medical history of insulin-dependent diabetes mellitus, history of left great toe diabetic foot ulcer/osteomyelitis status post first toe partial ray amputation presented to the emergency department due to maggot filled
wounds. Patient was discharged on January 26, 2025 after hospital management, and discharged on antibiotics. Patient had been caring for the wound at home with daily dressings. When patient's went to change dressing on the day before
presentation, she did notice a significant amount of maggot. Patient himself reported that he had 1 episode of nausea vomiting and felt feverish but no fevers were measured. Patient was continued on his existing antibiotic regimen. Podiatry and
infectious disease were consulted. Patient's wound care was continued. Infectious Disease was consulted and antibiotics was changed to Meropenem. On 02/07/25, patient had excisional debridement of left partial first ray amputation surgical site,
including skin, subcutaneous tissue, and necrotic soft tissue and bone for his Maggot infestation (myiasis) of left foot surgical site and soft tissue infection of prior left partial first ray amputation. On 02/09/25, patient had left 2nd toe
amputation and excisional debridement and washout of plantar forefoot tissues, for his left 2nd toe osteomyelitis and forefoot skin and soft tissue infection. Patient's Insulin regimen was increased for better control of hyperglycemia. On 02/13/25,
patient had left foot metatarsal 1 and 2 partial resection as well as delayed primary closure for his left foot osteomyelitis. Patient's Meropenem was able to be transitioned to Bactrim based on the cultures. As patient did not have insurance, wound
care supplies had to be arranged with case management and patient's family said they could do wound care at home for the patient, as long as supplies were provided. Patient was stable for discharge.
Discharge Plan
-
Patient Disposition: Home (Routine Discharge)
Discharge Diagnosis/Procedures: #Diabetic wound infection
#Left foot hallux residual osteomyelitis and wound infection with recent maggot infestation
#Left 2nd toe osteomyelitis
#Status post left foot metatarsal 1 and 2 partial resection as well as delayed primary closure
#Type 1? Diabetes Mellitus
Condition: Good
Diet: Low Fat, Low Cholesterol and Diabetic, Carb Controlled
Activity: Other activity
Additional Activity: Strict NWB LLE, darco offloading shoe LLE
Driving Restrictions: No driving
Other Services: VN
Activity Restrictions/Additional Instructions:
ACTIVITY:
Strict NWB LLE, darco offloading shoe LLE

WOUND CARE:
You will need betadine, 4x4 gauze pads, ABDs, kerlix or gabo, and RG wrap applied to your left foot today 3x per week (Mondays, Wednesdays and Fridays), and you need to continue this wound care for about 1 month. Follow the wound care instructions
as shown by your nurse. Dr. Brunson also asked you to take a video of exactly how to do wound care and dressing change.

A work note has been provided to you to have off from work through at least March 01, 2025. 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
Instructions: Sulfamethoxazole and Trimethoprim
Referrals:
Med Brunson DPM [Active, Orthopedics] - in one to two weeks
Referral Note: Surgery/hospitalization follow-up. Please contact patient or his authorized contacts to set up an appointment.
Additional Discharge Medication Instructions: Continue Sulfamethoxazole-Trimethoprim antibiotics through February 20, 2025
Prescriptions:
New
sulfamethoxazole-trimethoprim 800-160 mg Tablet
1 tab PO BID Qty: 11 0RF
Rx Instructions:
First dose on February 15, 2025 evening
Continued
atorvastatin 20 mg Tablet
20 mg PO QPM Qty: 30 0RF
oxycodone 5 mg Tablet
5 mg PO Q4HPRN PRN (Reason: moderate pain) Qty: 30 0RF
(DME) Accu-Chek Guide test strips Strip
Qty: 100 0RF
Rx Instructions:
As Directed
(DME) lancets [Accu-Chek Softclix Lancets] Misc
Qty: 200 0RF
Rx Instructions:
As Directed
insulin lispro [Humalog KwikPen Insulin] 100 unit/mL Insulin Pen
5 unit SC AC Qty: 5 0RF
insulin glargine [Basaglar KwikPen U-100 Insulin] 100 unit/mL (3 mL) Insulin Pen
20 unit SC HS Qty: 5 0RF
(DME) blood-glucose meter [Accu-Chek Guide Glucose Meter] Misc
Qty: 1 0RF
Rx Instructions:
As Directed
(DME) Rolling walker
See Rx Instructions .ROUTE .MEDSUPPLY Qty: 1 0RF
Rx Instructions:
Dx: LLE osteomyelitis
Held
metformin 1,000 mg Tablet
1,000 mg PO BID Qty: 60 0RF
Hold Instructions: Resume on 04/12/25. Discuss with your outpatient primary care physician as to when you should resume this medication.
Discontinued
cephalexin 500 mg capsule
1,000 mg PO Q8H 14 Days Qty: 84 0RF
Discharge Orders:
Discharge Patient (As Directed); Ordered 02/15/25
Ordered By: Shady Collins
Discharge Date and Time
Discharge Date/Time: 02/15/25 15:57
Print Language: MAURITANIAN
[2025-02-15 15:40] VITALS: BP 122/68
== END 2025-02-15 15:57 | disposition home or self-care (01) | DRG 464 ==
LOC: 4 WEST ACU 20:59
PROVIDERS: Internal Medicine; Student in an Organized Health Care Education/Training Program; ADMITTING PHYSICIAN Internal Medicine; ATTENDING PHYSICIAN Hospitalist; EMERGENCY PHYSICIAN Emergency Medicine; OTHER PHYSICIAN Internal Medicine Infectious Disease; OTHER PHYSICIAN Student in an Organized Health Care Education/Training Program
PROC: 0QBP0ZZ Excision of Left Metatarsal, Open Approach (ICD-10-PCS; 2025-02-08)
PROC: 0Y6S0Z0 Detachment at Left 2nd Toe, Complete, Open Approach (ICD-10-PCS; 2025-02-09)
PROC: 0JBR0ZZ Excision of Left Foot Subcutaneous Tissue and Fascia, Open Approach (ICD-10-PCS; 2025-02-09)
DX: T87.89 Other complications of amputation stump (principal); E11.52 Type 2 diabetes mellitus with diabetic peripheral angiopathy with gangrene; I96 Gangrene, not elsewhere classified; M00.872 Arthritis due to other bacteria, left ankle and foot; Z16.12 Extended spectrum beta lactamase (ESBL) resistance; M86.172 Other acute osteomyelitis, left ankle and foot; T87.44 Infection of amputation stump, left lower extremity; L76.82 Other postprocedural complications of skin and subcutaneous tissue; B87.1 Wound myiasis; R50.9 Fever, unspecified; L08.89 Other specified local infections of the skin and subcutaneous tissue; B96.1 Klebsiella pneumoniae [K. pneumoniae] as the cause of diseases classified elsewhere; B96.4 Proteus (mirabilis) (morganii) as the cause of diseases classified elsewhere; E11.65 Type 2 diabetes mellitus with hyperglycemia; E11.69 Type 2 diabetes mellitus with other specified complication; I10 Essential (primary) hypertension; E78.5 Hyperlipidemia, unspecified; Y83.5 Amputation of limb(s) as the cause of abnormal reaction of the patient, or of later complication, without mention of misadventure at the time of the procedure; Y92.009 Unspecified place in unspecified non-institutional (private) residence as the place of occurrence of the external cause; Z89.432 Acquired absence of left foot; Z79.84 Long term (current) use of oral hypoglycemic drugs; Z79.4 Long term (current) use of insulin; Z79.2 Long term (current) use of antibiotics
CPT/HCPCS: 80048; 80053; 82962; 83735; 85025; 85027; 85610; 85730; 87070; 87071; 87075; 87077; 87147; 87186; 87205; 88304; 88305; 88311; 97162; 97165; 99284; J2185

== ENCOUNTER 2025-04-25 08:13 | Outpatient (REF) | payer OTHER, SELFPAY | END 2025-04-25 23:59 | disposition home or self-care (01) | LOC: WOUND 08:13 | PROVIDERS: ATTENDING PHYSICIAN Surgery; FAMILY PHYSICIAN Nurse Practitioner Adult Health | DX: T81.31XA Disruption of external operation (surgical) wound, not elsewhere classified, initial encounter (principal); Y83.8 Other surgical procedures as the cause of abnormal reaction of the patient, or of later complication, without mention of misadventure at the time of the procedure; L97.522 Non-pressure chronic ulcer of other part of left foot with fat layer exposed; E11.65 Type 2 diabetes mellitus with hyperglycemia; Z86.31 Personal history of diabetic foot ulcer; M86.9 Osteomyelitis, unspecified; E11.51 Type 2 diabetes mellitus with diabetic peripheral angiopathy without gangrene | CPT/HCPCS: 11042; 99203 ==

== ENCOUNTER → 2025-04-27 13:33 | Outpatient (REF) | payer OTHER, SELFPAY | LOC: RAD 13:33 | PROVIDERS: ATTENDING PHYSICIAN Registered Nurse; FAMILY PHYSICIAN Nurse Practitioner Adult Health | DX: E11.621 Type 2 diabetes mellitus with foot ulcer (principal); I70.209 Unspecified atherosclerosis of native arteries of extremities, unspecified extremity | CPT/HCPCS: 93922 ==

== ENCOUNTER → 2025-05-02 09:07 | Outpatient (REF) | payer OTHER, SELFPAY ==
[2025-05-02 10:28] LABS: Glycohemoglobin (HgbA1c) 6.7 % (4.0-5.9)
[2025-05-02 10:34] LABS: ALT (SGPT) 18 U/L (0-50); AST (SGOT) 18 U/L (17-59); Albumin 4.3 g/dl (3.5-5.0); Alkaline Phosphatase 101 U/L (38-126); Blood Urea Nitrogen 20 mg/dl (9-20); Calcium 9.5 mg/dl (8.4-10.2); Carbon Dioxide 30 mmol/L (22-30); Chloride 102 mmol/L (98-107); Glucose 146 mg/dl (70-99); HDL Cholesterol 44 mg/dl; LDL Cholesterol, Calculated 77 mg/dl; Potassium 4.3 mmol/L (3.5-5.1); Sodium 138 mmol/L (135-145); Total Protein 7.3 g/dl (6.3-8.2); Very Low Density Lipoprotein 17 mg/dl (0-30); eGFR > 60.00
[2025-05-02 10:37] LABS: Microalb - Urine Creatinine 128.800 mg/dl
[2025-05-02 10:58] LABS: Vitamin D, 25-OH*** 47.3 ng/mL (30-80)
[2025-05-02 16:33] LABS: Microalbumin, Random Urine 31.8 mg/dl (0.6-1.7)
== END ==
LOC: REG 09:07
PROVIDERS: ATTENDING PHYSICIAN Nurse Practitioner Adult Health
DX: E11.65 Type 2 diabetes mellitus with hyperglycemia (principal); E78.2 Mixed hyperlipidemia; R80.9 Proteinuria, unspecified; R79.89 Other specified abnormal findings of blood chemistry
CPT/HCPCS: 36415; 80053; 80061; 82043; 82306; 82570; 83036

== ENCOUNTER 2025-05-19 07:11 | Day surgery (SDC) | payer OTHER, SELFPAY ==
[2025-05-19] VITALS (31 sets, daily range): BP systolic 101–150; BP diastolic 67–89; BMI 31.4
[2025-05-19] MEDS: NSS 500 IV ×2 (07:49→10:50)
[2025-05-19 07:59] LABS: Hematocrit 44.3 % (39.0-52.0); Hemoglobin 14.6 g/dL (13.0-18.0); Mean Corp Hgb Conc. 33.0 g/dL (33.0-37.0); Mean Corpuscular Volume 83.7 fL (80.0-94.0); Platelet Count 337 10^3/uL (130-400); Red Cell Dist. Width 13.2 % (11.5-14.5)
[2025-05-19 08:13] LABS: Blood Urea Nitrogen 25 mg/dl (9-20); Calcium 9.8 mg/dl (8.4-10.2); Carbon Dioxide 27 mmol/L (22-30); Chloride 104 mmol/L (98-107); Estimated Creatinine Clearance > 125 ml/min; Glucose 123 mg/dl (70-99); Potassium 4.2 mmol/L (3.5-5.1); Sodium 140 mmol/L (135-145); eGFR > 60.00
[2025-05-19 08:14] LABS: INR 0.94; PT 12.7 Sec (11.4-14.6)
[2025-05-19 08:15] LABS: APTT 30.5 Sec (23.4-35.0)
--- NOTE | 2025-05-19 08:23 | W.SUR.PREOP ---
Pre-Operative Surgical Note
-
I have examined this patient prior to the performance of the scheduled procedure.
The patient's condition is unchanged from the time of the current History and
Physical and the patient is able to undergo the scheduled procedure.
[2025-05-19 09:46] LABS: Glucose - Point of Care 126 mg/dl (70-99)
--- NOTE | 2025-05-19 10:44 | OR.RPT ---
Operative Report
Operative Report
Date of Operation: 05/19/2025
Pre Op Diagnosis:
1. Diabetes with left foot wound
2. Slowly healing left hallux amputation site
Post Op Diagnosis:
1. Diabetes with left foot wound
2. Slowly healing left hallux amputation site
Procedure:
1. Selective catheterization of third order lower extremity artery
2. Diagnostic aortobiiliac arteriogram
3. Diagnostic left lower extremity arteriogram
4. Ultrasound-guided percutaneous access to the right common femoral artery
Surgeon: Juan Rodríguez III, MD
Insurance Verifier: Kaylyn Woodward MD PGY-4
Anesthesia: Sedation with local
Fluoroscopy:
12 min
108 mGy
50.87 gy.cm2
Complications: None
Estimated Blood Loss: Less than 10 cc
History and Indications for Procedure: 50-year-old male with poorly controlled diabetes and slowly healing left hallux amputation site.
Procedure in Detail: Chito Simmons was correctly identified and placed supine on the operating table. After adequate induction of anesthesia the bilateral groins were prepped and draped in the usual sterile fashion. A timeout was performed
with the nursing and anesthesia staff confirming the patient's identity as well as the nature and laterality of the procedure.
The right common femoral artery was identified under ultrasound guidance. The artery was patent. The superior and inferior aspects of the femoral head were identified with radiographic guidance and marked at the skin level. The proposed puncture
site was infiltrated with local anesthesia. Under ultrasound guidance we accessed the right common femoral artery with a micropuncture needle and upsized to a 5 Fr sheath over a Rouse Properti[employer] wire. The wire and a [employer] hook flush catheter were
advanced into the distal abdominal aorta and a diagnostic [id number] arteriogram was performed:
AORTO-ILIAC ARTERIOGRAM:
Aorta: Patent with no stenosis identified
Right common iliac artery: Patent with no stenosis identified
Right external iliac artery: Patent with no stenosis identified
Left common iliac artery: Patent with no stenosis identified
Left external iliac artery: Patent with no stenosis identified
Under roadmap guidance using a Glidewire and the [employer] hook catheter we selected the left common iliac artery followed by the external iliac artery and then the common femoral artery. A catheter was tracked up and over the aortic bifurcation and
placed in the common femoral artery. A diagnostic left lower extremity arteriogram was then performed which demonstrated the following:
LEFT LOWER EXTREMITY:
Common femoral artery: Patent with no stenosis identified
Profunda femoral artery: Patent with no stenosis identified
Superficial femoral artery: Diffusely calcified but patent with no stenosis identified
Using a Glidewire and quick cross catheter under roadmap guidance we selected the superficial femoral artery. I then advanced the wire and catheter into the distal superficial femoral artery to perform the remainder of the lower extremity
arteriogram:
Popliteal artery: Patent with no stenosis identified
Anterior tibial artery: Patent with no stenosis identified. Dominant tibial artery. Brisk flow across the ankle and into the foot to form the dorsalis pedis artery. Brisk flow identified to the forefoot and hallux amputation site.
Tibioperoneal trunk: Patent with no stenosis identified
Peroneal artery: Patent with no stenosis identified
Posterior tibial artery: Patent. Diffusely smaller diameter distally. Areas of focal stenosis in the distal posterior tibial artery at the ankle. Posterior tibial artery continues across the ankle to form medial and lateral plantar branches in
the foot.
Satisfied with this diagnostic result we concluded the procedure. The catheter was pulled from the 5 [place] sheath in the right groin. The sheath was secured in place with the plan to pull it in the recovery room.
The patient tolerated the procedure well and was taken to the recovery area in stable condition.
Attestation: I was present and responsible for the entire procedure.
Signed:
Juan Rodríguez III, MD
Vascular Surgery
[facility]
[2025-05-19] MEDS: NSS 1000 IV (10:52)
[2025-05-19] MEDS: TYLENOL 650 MG PO (11:14)
[2025-05-19 12:53] LABS: Glucose - Point of Care 100 mg/dl (70-99)
== END 2025-05-19 15:00 | disposition home or self-care (01) ==
LOC: CATH 07:11
PROVIDERS: ATTENDING PHYSICIAN Surgery Vascular Surgery; FAMILY PHYSICIAN Family Medicine; PRIMARYCARE PHYSICIAN Nurse Practitioner Adult Health
DX: T81.89XD Other complications of procedures, not elsewhere classified, subsequent encounter (principal); Y83.5 Amputation of limb(s) as the cause of abnormal reaction of the patient, or of later complication, without mention of misadventure at the time of the procedure; E11.51 Type 2 diabetes mellitus with diabetic peripheral angiopathy without gangrene; L97.529 Non-pressure chronic ulcer of other part of left foot with unspecified severity; I70.245 Atherosclerosis of native arteries of left leg with ulceration of other part of foot; Z79.899 Other long term (current) drug therapy; Z79.84 Long term (current) use of oral hypoglycemic drugs; Z79.4 Long term (current) use of insulin; Z89.422 Acquired absence of other left toe(s)
CPT/HCPCS: 36247; 75710; 75625; 80048; 82962; 85027; 85610; 85730; 93005; C1769; C1894; Q9967